=== PATIENT | male | born 1975 | race Caucasian/White ===

== ENCOUNTER 2020-04-21 21:43 | Emergency (ER) | payer OTHER, SELFPAY ==
[2020-04-21 21:47] VITALS: BP 136/95; PULSE 96; RESP 32; TEMP 36.4; O2SAT 92; BMI 22.2
--- NOTE | 2020-04-21 21:56 | ED.SOB ---
HPI - SOB/Dyspnea General Chief Complaint: Dyspnea Stated Complaint: ASTHMA ATTACK Time Seen by Provider: 04/21/20 21:55 Source: patient and EMS Mode of arrival: EMS Limitations: no limitations History of Present Illness HPI Narrative: patient history of COPD/asthma chronic smoker been here frequently for COPD exacerbation and admission last admission was 3 months ago. For last 3-4 days patient has been feeling short of breath getting worse using nebulizer multiple times without much relief patient received 2 DuoNeb treatment by EMS Solu-Medrol and magnesium now is feeling better still wheezing and tightNo exposure to COVID lately MD elicited complaint: shortness of breath and cough ( dry) Pertinent past history: COPD and asthma Onset (ago): day(s) (3-4) Related Data Home Medications Medication Instructions Recorded Confirmed albuterol sulfate 1 amp INHALATION Q4H PRN 04/21/20 04/21/20 albuterol sulfate 2 puff PO Q4H PRN 04/21/20 04/21/20 Allergies Allergy/AdvReac Type Severity Reaction Status Date / Time No Known Allergies Allergy Verified 04/21/20 22:15 [No Known Allergies*] Review of Systems Review of Systems: REVIEW OF SYSTEMS: Pertinent positives and negatives are stated above in the history. GEN: no fevers, chills, fatigue HEENT: no nasal congestion, sore throat, ear pain NEURO: no headache, dizziness, focal weakness PULM: per HPI CV: no chest pain, palpitations, LE edema ABD: no abdominal pain, nausea, vomiting, diarrhea : no dysuria, urgency, frequency SKIN: no rash ROS otherwise negative x 10 PMFSH Past Medical History Medical History Asthma COPD (chronic obstructive pulmonary disease) Social History Social History Alcohol intake: never Smoking Status: Current every day smoker Advance Directives: No Advance Directives Information Provided: Yes Physical Exam Vital Signs: Vital Signs: Vital Signs Temp Pulse Resp BP Pulse Ox 04/21/20 21:47 97.6 F 96 32 H 136/95 H 92 Body Mass Index 22.2 VITAL SIGNS: Reviewed. GENERAL: Well developed, well nourished, in moderate distress. HEAD: Normocephalic/atraumatic, EYES: PERRLA No pallor/icterus noted EARS: Ext canals without abnormality NOSE: Nares patent bilateral OROPHARYNX: Oral mucosa moist no oral lesions NECK: Supple, no adenopathy LUNGS: moderate distress wheezing prolonged expiration no rales using accessory muscle CARDIOVASCULAR: Regular rate and rhythm without noted murmurs, no JVD or lower extremity edema. ABDOMEN: Soft, non-tender, non-distended with bowel sounds. No rigidity. No guarding. No palpable masses or hernias noted MUSCULOSKELETAL: No tenderness, deformities, EXTREMITIES: No cyanosis or edema. SKIN: no rashes, ulcerations, jaundice, pallor, or petechiae NEUROLOGIC: Alert and oriented x 3. Strength and sensation to light touch were grossly intact Course Reevaluation(s) Reevaluation #1: Patient feeling much better now does not want to stay in the hospital has nebulizer and haler at home saturating 92% after ambulation received nebulizing treatment in the ER and already received Solu-Medrol magnesium and DuoNeb treatment by EMS will give him extra 10 mg of Decadron IV here and discharge him home Time: 01:11 MDM - SOB/Dyspnea Lab Data Result diagrams: 04/21/20 23:27 04/21/20 23:27 Labs: Lab Results 04/21/20 04/21/20 04/21/20 Range/Units 22:33 23:27 23:27 WBC 8.8 (4.8-10.8) X10*3/uL RBC 4.30 L (4.60-5.80) X10*6/uL Hgb 12.9 L (14.0-18.0) g/dl Hct 39.4 L (42-52) % MCV 91.6 (80-98) fL MCH 30.0 (27.0-33.0) pg MCHC 32.7 (31.0-36.0) g/dl RDW 13.2 (11.0-16.0) % Plt Count 207 (160-400) X10*3/uL MPV 10.2 (9.4-12.4) fL Immature Gran % (Auto) 0.2 (0.0-0.4) % Neut % (Auto) 84.4 H (45-73) % Lymph % (Auto) 9.2 L (20-40) % [place] % (Auto) 2.7 (2-11) % Eos % (Auto) 3.2 (0-4) % Baso % (Auto) 0.3 (0-2) % Lymph # (Auto) 0.8 L (1.2-4.9) X10*3/uL [place] # (Auto) 0.2 (0.1-1.2) X10*3/uL Eos # (Auto) 0.3 (0.0-0.4) X10*3/uL Baso # (Auto) 0.0 (0.0-0.2) X10*3/uL Abs Immat Gran (auto) 0.02 (0.00-0.03) X10*3/uL Absolute Neuts (auto) 7.4 (2.0-8.3) X10*3/uL Absolute Nucleated RBC 0.000 (0.0-0.012) X10*3/uL Nucleated RBC % (auto) 0.0 (0.0-0.2) /100WBC Sodium 140 (135-145) mmol/L Potassium 3.7 (3.3-5.1) mmol/l Chloride 106 (96-108) mmol/L Carbon Dioxide 25 (22-29) mmol/L Anion Gap 13 (12-20) BUN 20 H (9-16) mg/dL Creatinine 0.85 (0.5-1.4) mg/dL Estim Creat Clear Calc 107.9 Estimated GFR > 60 Random Glucose 131 H (60-115) mg/dL Calcium 7.8 L (8.4-10.2) mg/dL Coronavirus (PCR) NEGATIVE (Negative) Discharge Plan Discharge Prescriptions: No Action albuterol sulfate 2.5 mg /3 mL (0.083 %) solution for nebulization 1 amp inhalation Q4H PRN (Reason: wheezing) RF: 0 albuterol sulfate 90 mcg/actuation HFA aerosol inhaler 2 puff PO Q4H PRN (Reason: dyspnea) RF: 0
--- NOTE | 2020-04-21 22:05 | XR_ITS ---
EXAMINATION: XR CHEST CLINICAL INFORMATION: Shortness of breath COMPARISON: 10/04/2019 TECHNIQUE: Frontal view of the chest was obtained. FINDINGS: The heart and pulmonary vessels appear normal. There is no evidence of CHF. Compared to the prior chest radiograph, there is an increase in reticulonodular markings which could be related to mucus plugging which was seen on the prior CT scan. No gross consolidation is seen. No pleural effusions are present. XR/XR chest 1V IMPRESSION: Slight increase in reticular nodular densities without gross consolidation.
[2020-04-21] MEDS: 0.9 % Sodium Chloride 1,000 ML 999 ML IVCONT (22:12)
--- NOTE | 2020-04-21 22:14 | PC.NURSE ---
2L O2 APPLIED VIA NC. PT SPO2 INCREASED TO 97% ON 2L. SPRING FORGER APPLIED, SINUS TACH ON MONITOR. IVF HUNG AND INFUSING WITHOUT DIFFICULTY. AWAITING TESTING, AWARE OF PLAN OF CARE.
--- NOTE | 2020-04-21 22:19 | PC.NURSE ---
MEDICATIONS RECONCILED- PT STATES HE HASNT TAKEN HIS PSYCH MEDS IN MONTHS. NOT ADDED TO MED REC BECAUSE OF LENGTH OF TIME NOT TAKING.
--- NOTE | 2020-04-21 22:32 | PC.NURSE ---
CALLED RT FOR CONTINUOUS UPDRAFT- PER YOLY Campos UNABLE TO ADMINISTER UNTIL NEGATIVE COVID RECEIVED. NOTIFIED.
[2020-04-21 23:36] LABS: Basophils Percent Auto 0.3 % (0-2); Eosinophils Absolute Auto 0.3 X10*3/uL (0.0-0.4); Eosinophils Percent Auto 3.2 % (0-4); Hematocrit 39.4 % (42-52); Hemoglobin 12.9 g/dl (14.0-18.0); Imm Gran Abs Auto 0.02 X10*3/uL (0.00-0.03); Imm Gran Pct Auto 0.2 % (0.0-0.4); Lymphocytes Absolute Auto 0.8 X10*3/uL (1.2-4.9); Lymphocytes Percent Auto 9.2 % (20-40); MANUAL DIFF FLAG NO; Mean Corpuscular HGB Conc 32.7 g/dl (31.0-36.0); Mean Corpuscular Volume 91.6 fL (80-98); Mean Platelet Volume 10.2 fL (9.4-12.4); Monocytes Absolute Auto 0.2 X10*3/uL (0.1-1.2); Monocytes Percent Auto 2.7 % (2-11); Neutrophils Absolute Auto 7.4 X10*3/uL (2.0-8.3); Neutrophils Percent Auto 84.4 % (45-73); Platelet Count 207 X10*3/uL (160-400); Red Cell Distribution Width 13.2 % (11.0-16.0); White Blood Count 8.8 X10*3/uL (4.8-10.8)
[2020-04-21 23:51] LABS: SARS COV2 PCR INHOUSE NEGATIVE (Negative)
[2020-04-22] VITALS: BP 93/67; PULSE 100; RESP 20; TEMP 36.8; O2SAT 93
[2020-04-22 00:08] LABS: Anion Gap 13 (12-20); Blood Urea Nitrogen 20 mg/dL (9-16); Calcium 7.8 mg/dL (8.4-10.2); Carbon Dioxide 25 mmol/L (22-29); Chloride 106 mmol/L (96-108); Creatinine Clr Calc Pharmacy 107.9; Estimated Glomerular Filt Rate > 60; Glucose Random 131 mg/dL (60-115); Potassium 3.7 mmol/l (3.3-5.1); Sodium 140 mmol/L (135-145)
[2020-04-22] MEDS: Albuterol Sulfate (0.083%) 2.5 MG/3 ML VIAL.NEB 10 MG INHALE (00:09)
--- NOTE | 2020-04-22 01:13 | PC.NURSE ---
AMBULATION TRIAL TO BATHROOM, SPO2 92% ON RA AFTERWARDS, PT REPORTS FEELING MUCH BETTER. REEVAL BY MD SALTER. AWAITING MED AND DC HOME. AWARE AND IN AGREEANCE WITH PLAN OF CARE.
[2020-04-22] MEDS: dexAMETHasone sod phosphate 4 MG/ML VIAL 10 MG IVPUSH (01:16)
== END 2020-04-22 01:40 | disposition home or self-care (01) ==
PROVIDERS: Emergency Provider Internal Medicine
DX: J44.9 Chronic obstructive pulmonary disease, unspecified (principal); Z20.828 Contact with and (suspected) exposure to other viral communicable diseases; Z79.899 Other long term (current) drug therapy
CPT/HCPCS: 36415; 71045; 80048; 85025; 96361; 96374; 99284; J1100; U0003

== ENCOUNTER 2020-06-10 22:05 | Inpatient (IN) | payer OTHER, SELFPAY ==
[2020-06-10 22:17] VITALS: BP 130/101; PULSE 106; RESP 24; TEMP 36.1; O2SAT 88; BMI 20.9
[2020-06-10 22:21] VITALS: O2SAT 94
--- NOTE | 2020-06-10 22:23 | XR_ITS ---
EXAMINATION: CHEST 1 VIEW CLINICAL INFORMATION: Shortness of breath. COMPARISON: 04/21/2020. TECHNIQUE: An AP view of the chest is provided. FINDINGS: The cardiac silhouette is not enlarged. The mediastinal and hilar contours are unremarkable. There are neither pleural effusions nor pneumothoraces. There are no consolidations. The osseous structures are stable. XR/XR chest 1V IMPRESSION: No evidence for acute disease.
--- NOTE | 2020-06-10 22:23 | ECG_ITS ---
Test Reason : SOB Blood Pressure : / mmHG Vent. Rate : 093 BPM Atrial Rate : 093 BPM P-R Int : 158 ms QRS Dur : 078 ms QT Int : 392 ms P-R-T Axes : 068 051 072 degrees QTc Int : 487 ms Normal sinus rhythm Prolonged QT Abnormal ECG When compared to the previous EKG of No significant changes seen Referred By: Generic ED Physician Electronically Signed By:Richard Vásquez
--- NOTE | 2020-06-10 22:29 | PC.NURSE ---
IV established, labs and Covid swab obtained and sent.
[2020-06-10] MEDS: Magnesium Sulfate/H2O 2 GM/50 ML PIGGYBACK IV (22:33)
--- NOTE | 2020-06-10 22:33 | ED_ITS ---
HPI - SOB/Dyspnea General Chief Complaint: Dyspnea Stated Complaint: sob Time Seen by Provider: 06/10/20 22:28 Source: patient Mode of arrival: ambulatory Limitations: no limitations History of Present Illness HPI Narrative: 44-year-old male presents with past medical history of asthma, and substance abuse presents with shortness of breath, cough, in a tripod position and hypoxic at 88% with a respiration rate of 24. Patient cannot speak in complete sentences, respiratory called. Patient states that he does use cocaine but not in the past 2 days, has used his albuterol inhalers with poor effect. He does not report any sick contacts and has not had any exposure to COVID-19. MD elicited complaint: shortness of breath, cough and asthma attack Pertinent past history: asthma Onset (ago): day(s) (3) Timing: constant Severity: severe Exacerbating factors: exertion, movement, coughing, inspiration, talking, cold air and deep breaths Relieving factors: nothing Known history of: asthma Associated symptoms: wheezing, sputum production, orthopnea and diaphoresis Treatment prior to arrival: bronchodilator Related Data Home oxygen amount: none Home Medications Medication Instructions Recorded Confirmed albuterol sulfate 1 amp INHALATION Q4H PRN 04/21/20 04/21/20 albuterol sulfate 2 puff PO Q4H PRN 04/21/20 04/21/20 Previous Rx's Medication Instructions Recorded albuterol sulfate 2 puff INHALATION Q6H PRN #18 g 04/22/20 albuterol sulfate 2.5 mg INHALATION Q4-6H PRN #180 ml 04/22/20 benzonatate [Tessalon Perles] 100 mg PO TID PRN #20 cap 04/22/20 prednisone 40 mg PO DAILY #10 tab 04/22/20 Allergies Allergy/AdvReac Type Severity Reaction Status Date / Time No Known Allergies Allergy Verified 04/21/20 22:15 [No Known Allergies*] Review of Systems Review of Systems: Constitutional: No Fever, No Chills ENT/Mouth: No Hoarseness, No sore throat, No Rhinorrhea Eyes: No Redness, No Discharge, No Vision Changes Cardiovascular: No Chest Pain, positive SOB, positive Dyspnea on Exertion, No Edema Respiratory: positive Cough, No Sputum, positive Wheezing, Gastrointestinal: No Nausea, No Vomiting, No Diarrhea, No abdominal Pain Genitourinary: No Dysuria, No Hematuria Musculoskeletal: No joint pain, No Myalgias Skin: No rash Neuro: No Weakness, No Numbness, No Headache Psych: No anxiety, depression Heme/Lymph: No Bruising, No Bleeding Endocrine: No Polyuria, No Polydipsia Yes all other systems are reviewed and are negative COUNT INCLUDES THE [facility] Past Medical History Attestation statement: The following information was validated with the patient. Medical History Asthma COPD (chronic obstructive pulmonary disease) Social History Social History Alcohol intake: never Smoking Status: Current every day smoker Advance Directives: No Advance Directives Information Provided: Yes Physical Exam 2 Vital Signs: Vital Signs: Last Vital Signs Temp 97 F 06/10/20 22:17 Pulse 98 06/10/20 23:38 Resp 18 06/10/20 23:38 BP 124/80 06/10/20 23:38 Pulse Ox 94 06/10/20 23:38 Body Mass Index 20.9 Appearance: Alert. Oriented X3. Moderate respiratory distress, tachypneic, tachycardic Eyes: Pupils equal, round and reactive to light. ENT: Pharynx normal. Neck: Normal inspection. Neck supple. CVS: Tachycardic heart rate and rhythm. Pulses normal. Respiratory: Moderate respiratory distress. Breath sounds inspiratory and expiratory wheezing with diminished air flow Abdomen: Soft and nontender. Skin: Skin warm and mild diaphoresis, Normal skin color. Normal skin turgor. Extremities: No lower extremity edema. Neuro: No motor deficit. No sensory deficit. Course Course Course Narrative: 44-year-old male with known asthma presents with acute asthma exacerbation versus acute respiratory distress. Respiratory called, hour long neb, magnesium 2 g, Decadron 6 mg and oxygen applied titrated to keep O2 sat above 92%. Patient requires 3 L, chest x-ray shows mucus plug, COVID-19 test is negative. Discussion with hospitalist regarding plan of care, plan to admit for hypoxia, acute asthma exacerbation. MDM - SOB/Dyspnea Differential Diagnosis Differential diagnosis: Likely acute exacerbation of chronic obstructive airways disease, pneumonia and asthma with exacerbation Medical Records Attestation: I reviewed the patient's medical records. Lab Data Attestation: I reviewed the patient's lab results. Result diagrams: 06/10/20 22:25 06/10/20 22:25 Labs: Lab Results 06/10/20 06/10/20 06/10/20 Range/Units 22:25 22:25 22:29 WBC 5.7 (4.8-10.8) X10*3/uL RBC 4.72 (4.60-5.80) X10*6/uL Hgb 14.2 (14.0-18.0) g/dl Hct 42.6 (42-52) % MCV 90.3 (80-98) fL MCH 30.1 (27.0-33.0) pg MCHC 33.3 (31.0-36.0) g/dl RDW 13.0 (11.0-16.0) % Plt Count 272 D (160-400) X10*3/uL MPV 10.0 (9.4-12.4) fL Immature Gran % (Auto) 0.2 (0.0-0.4) % Neut % (Auto) 44.1 L (45-73) % Lymph % (Auto) 37.7 (20-40) % [place] % (Auto) 8.5 (2-11) % Eos % (Auto) 8.8 H (0-4) % Baso % (Auto) 0.7 (0-2) % Lymph # (Auto) 2.1 (1.2-4.9) X10*3/uL [place] # (Auto) 0.5 (0.1-1.2) X10*3/uL Eos # (Auto) 0.5 H (0.0-0.4) X10*3/uL Baso # (Auto) 0.0 (0.0-0.2) X10*3/uL Abs Immat Gran (auto) 0.01 (0.00-0.03) X10*3/uL Absolute Neuts (auto) 2.5 (2.0-8.3) X10*3/uL Absolute Nucleated RBC 0.000 (0.0-0.012) X10*3/uL Nucleated RBC % (auto) 0.0 (0.0-0.2) /100WBC Sodium 142 (135-145) mmol/L Potassium 4.4 (3.3-5.1) mmol/l Chloride 104 (96-108) mmol/L Carbon Dioxide 27 (22-29) mmol/L Anion Gap 15 (12-20) BUN 16 (9-16) mg/dL Creatinine 0.94 (0.5-1.4) mg/dL Estim Creat Clear Calc 94.4 Estimated GFR > 60 Random Glucose 93 (60-115) mg/dL Calcium 9.1 D (8.4-10.2) mg/dL COVID-19 ([facility]) Negative (Negative) COVID-19 Clin Com See Note Imaging Data Chest x-ray: Attestation: I personally reviewed and interpreted this imaging study as follows: Radiologist's impression: EXAMINATION: XR CHEST CLINICAL INFORMATION: Shortness of breath COMPARISON: 10/04/2019 TECHNIQUE: Frontal view of the chest was obtained. FINDINGS: The heart and pulmonary vessels appear normal. There is no evidence of CHF. Compared to the prior chest radiograph, there is an increase in reticulonodular markings which could be related to mucus plugging which was seen on the prior CT scan. No gross consolidation is seen. No pleural effusions are present. XR/XR chest 1V IMPRESSION: Slight increase in reticular nodular densities without gross consolidation. ECG Data Attestation: I personally reviewed and interpreted this ECG as follows: ECG interpretation date: 06/10/20 Discharge Plan Discharge Clinical Impression: Asthma with exacerbation Patient Disposition: Admitted As Inpatient Prescriptions: No Action albuterol sulfate 2.5 mg /3 mL (0.083 %) solution for nebulization 1 amp inhalation Q4H PRN (Reason: wheezing) RF: 0 albuterol sulfate 90 mcg/actuation HFA aerosol inhaler 2 puff PO Q4H PRN (Reason: dyspnea) RF: 0 albuterol sulfate 90 mcg/actuation HFA aerosol inhaler 2 puff inhalation Q6H PRN (Reason: shortness of breath or wheezing) Qty: 18 RF: 2 albuterol sulfate 2.5 mg /3 mL (0.083 %) solution for nebulization 2.5 mg inhalation Q4-6H PRN (Reason: shortness of breath or wheezing) Qty: 180 RF: 0 benzonatate [Tessalon Perles] 100 mg capsule 100 mg PO TID PRN (Reason: cough) Qty: 20 RF: 0 prednisone 20 mg tablet 40 mg PO DAILY Qty: 10 RF: 0
[2020-06-10] MEDS: dexAMETHasone sod phosphate 4 MG/ML VIAL 6 MG IVPUSH (22:34)
--- NOTE | 2020-06-10 22:35 | PC.NURSE ---
Pt medicated per MAR.
[2020-06-10 22:36] LABS: MANUAL DIFF FLAG NO
[2020-06-10] MEDS: Albuterol Sulfate (0.083%) 2.5 MG/3 ML VIAL.NEB 10 MG INHALE (22:41)
[2020-06-10 22:42] VITALS: PULSE 102; O2SAT 95
[2020-06-10 22:42] LABS: Basophils Percent Auto 0.7 % (0-2); Eosinophils Absolute Auto 0.5 X10*3/uL (0.0-0.4); Eosinophils Percent Auto 8.8 % (0-4); Hematocrit 42.6 % (42-52); Hemoglobin 14.2 g/dl (14.0-18.0); Imm Gran Abs Auto 0.01 X10*3/uL (0.00-0.03); Imm Gran Pct Auto 0.2 % (0.0-0.4); Lymphocytes Absolute Auto 2.1 X10*3/uL (1.2-4.9); Lymphocytes Percent Auto 37.7 % (20-40); Mean Corpuscular HGB Conc 33.3 g/dl (31.0-36.0); Mean Corpuscular Hemoglobin 30.1 pg (27.0-33.0); Mean Corpuscular Volume 90.3 fL (80-98); Monocytes Absolute Auto 0.5 X10*3/uL (0.1-1.2); Monocytes Percent Auto 8.5 % (2-11); Neutrophils Absolute Auto 2.5 X10*3/uL (2.0-8.3); Neutrophils Percent Auto 44.1 % (45-73); Platelet Count 272 X10*3/uL (160-400); Red Blood Count 4.72 X10*6/uL (4.60-5.80); White Blood Count 5.7 X10*3/uL (4.8-10.8)
[2020-06-10 22:44] LABS: IDNOW Serial# 9DD0AD1C
[2020-06-10 22:52] LABS: COVID-19 Test Negative (Negative)
[2020-06-10 23:11] LABS: Anion Gap 15 (12-20); Blood Urea Nitrogen 16 mg/dL (9-16); Calcium 9.1 mg/dL (8.4-10.2); Carbon Dioxide 27 mmol/L (22-29); Chloride 104 mmol/L (96-108); Creatinine Clr Calc Pharmacy 94.4; Estimated Glomerular Filt Rate > 60; Glucose Random 93 mg/dL (60-115); Potassium 4.4 mmol/l (3.3-5.1); Sodium 142 mmol/L (135-145)
--- NOTE | 2020-06-10 23:36 | PC.NURSE ---
Pt found sitting in bed, with UPD noted on bed, empty. Pts NC no longer attached to oxygen as UPD had been running, pt satting @ 88% on RA. O2 reapplied at 3 lpm via NC, sat increased to 93%. VSS. Pt requesting cough medicine at this time. Continue to monitor.
[2020-06-10 23:38] VITALS: BP 124/80; PULSE 98; RESP 18; O2SAT 88; O2SAT 94
--- NOTE | 2020-06-10 23:53 | PC.NURSE ---
CXR at bedside.
[2020-06-11] VITALS: BP 121/85; PULSE 95; RESP 18; O2SAT 94
--- NOTE | 2020-06-11 00:37 | PC.NURSE ---
EKG obtained at bedside.
[2020-06-11 02:00] VITALS: BP 120/78; PULSE 94; RESP 18; O2SAT 95
--- NOTE | 2020-06-11 02:24 | P.HPHOSP_ITS ---
History of Present Illness Date of Service: 06/11/20 Chief Complaint: SOB 44 y/o male with PMHx of Psychotic disorder, Asthma/COPD and insomnia who presented from home due to SOB. Per history provided by the patient, for the past 1 day has been having worsening difficulty breathing associated with a dry cough but denies any fever, chills, nausea, vomiting or chest pain. On prentation to the ED patient was saturating 88% on room air, labs unremarkable as well as imaging. Patient was given Albuterol, dexamethason and magnesium. Decision for admission given to medicine. Patient seen and examined at the bedside, laying downi in bed in no acute distress. ROS as above otherwise negative. Past medical history: Schizoaffective, Asthma/COPD, opiate use disorder Surgical history: Denies Family history: Father had multiple heart attacks Social history: Comes from home, reports that he quit smoking and drinking alcohol about 2 weeks ago, he had no draw symptoms. Uses heroin daily last use this morning. Review of Systems Constitutional: Constitutional: Reports as per HPI and Reports other [facility] Medical History Asthma COPD (chronic obstructive pulmonary disease) Functional capacity: independent ambulation Social History Alcohol intake: never Smoking Status: Current every day smoker Advance Directives: No Advance Directives Information Provided: Yes Meds Allergies Allergy/AdvReac Type Severity Reaction Status Date / Time No Known Allergies Allergy Verified 04/21/20 22:15 [No Known Allergies*] Home Medications Medication Instructions Recorded Confirmed Type albuterol sulfate 1 amp INHALATION Q4-6H PRN 06/11/20 06/11/20 History albuterol sulfate 2 puff PO Q6H PRN 06/11/20 06/11/20 History clonidine HCl 1 tab PO TID PRN 06/11/20 06/11/20 History risperidone 1 tab PO BID 06/11/20 06/11/20 History trazodone 1 tab PO BEDTIME 06/11/20 06/11/20 History Physical Exam Vital Signs and Narrative: Vital Signs: Last Vital Signs Temp 97 F 06/10/20 22:17 Pulse 94 06/11/20 02:00 Resp 18 06/11/20 02:00 BP 120/78 06/11/20 02:00 Pulse Ox 95 06/11/20 02:00 Body Mass Index 20.9 Const: General: cooperative, comfortable and no acute distress Orientation/consciousness: oriented to person, oriented to place and oriented to time HENMT: Head: Yes normal to inspection Eyes: General: appearance normal, both eyes and all related structures Neck: Yes normal visual inspection Chest: Chest palpation & inspection: normal inspection of the chest Resp: Auscultation: clear to auscultation bilaterally Cardio: Rate: regular rate Rhythm: regular rhythm Heart sounds: S1 normal heart sound present and S2 normal heart sound present GI: Inspection: Yes normal to inspection Percussion: Yes normal to percussion Skin: General skin exam: no rashes or lesions noted Neuro: General: oriented to person, oriented to place and oriented to time Results Labs CBC and Chem 7: 06/10/20 22:25 06/10/20 22:25 Labs: Laboratory Results - last 24 hr 06/10/20 06/10/20 06/10/20 22:25 22:25 22:29 MCV 90.3 MCH 30.1 MCHC 33.3 RDW 13.0 Plt Count 272 D MPV 10.0 Immature Gran % (Auto) 0.2 Neut % (Auto) 44.1 L Lymph % (Auto) 37.7 [place] % (Auto) 8.5 Eos % (Auto) 8.8 H Baso % (Auto) 0.7 Lymph # (Auto) 2.1 [place] # (Auto) 0.5 Eos # (Auto) 0.5 H Baso # (Auto) 0.0 Abs Immat Gran (auto) 0.01 Absolute Neuts (auto) 2.5 Absolute Nucleated RBC 0.000 Nucleated RBC % (auto) 0.0 Anion Gap 15 Estim Creat Clear Calc 94.4 Estimated GFR > 60 Random Glucose 93 Calcium 9.1 D COVID-19 ([facility]) Negative COVID-19 Clin Com See Note Imaging Radiologist's Impressions: Impressions Chest X-Ray 06/10/20 22:23 IMPRESSION: No evidence for acute disease. Assessment and Plan (1) Asthma with exacerbation: Qualifiers: Asthma persistence: persistent Asthma severity: severe Qualified Code(s): J45.51 - Severe persistent asthma with (acute) exacerbation Status: Acute Continue with O2 therapy and titrate down as tolerated Continue with IV solumedrol as ordered Follow up Bcx Incentive spirometry in the am (2) Psychotic disorder: Status: Acute continue with home psych meds (3) Insomnia: Status: Acute continue with trazodone home dose
--- NOTE | 2020-06-11 02:42 | PC.NURSE ---
PT'S WORK OF BREATHING HAS IMPROVED, NOW ABLE TO SPEAK IN FULL SENTENCES. SPO2 MID 90'S, PT NO LONGER TRIPOD POSITION LIKE WHEN HE ARRIVED TO THE ER. PT SEEMS ANXIOUS, ASKED IF HE IS CURRENTLY USING OPIATES OR WITHDRAWING. PT REPLIED NO, I HAVEN'T USED IN A WHILE.
--- NOTE | 2020-06-11 02:46 | PC.NURSE ---
REPORT GIVEN TO RN ON FLOOR, PT READY FOR TRANSPORT.
[2020-06-11 03:15] VITALS: BP 107/73; PULSE 93; RESP 18; TEMP 36.7; O2SAT 96
[2020-06-11] MEDS: guaiFENesin 100 MG/5 ML LIQUID PO (04:51)
[2020-06-11] MEDS: Heparin Sodium,Porcine 5,000 UNIT/ML VIAL 5000 UNIT SUBCUT (04:51)
[2020-06-11 04:55] LABS: Basophils Percent Auto 0.3 % (0-2); Eosinophils Percent Auto 0.3 % (0-4); Hematocrit 39.3 % (42-52); Imm Gran Abs Auto 0.01 X10*3/uL (0.00-0.03); Imm Gran Pct Auto 0.1 % (0.0-0.4); Lymphocytes Absolute Auto 0.4 X10*3/uL (1.2-4.9); Lymphocytes Percent Auto 6.2 % (20-40); Mean Corpuscular HGB Conc 33.1 g/dl (31.0-36.0); Mean Corpuscular Hemoglobin 29.7 pg (27.0-33.0); Mean Corpuscular Volume 89.9 fL (80-98); Mean Platelet Volume 10.1 fL (9.4-12.4); Monocytes Absolute Auto 0.1 X10*3/uL (0.1-1.2); Monocytes Percent Auto 0.9 % (2-11); Neutrophils Absolute Auto 6.2 X10*3/uL (2.0-8.3); Neutrophils Percent Auto 92.2 % (45-73); Platelet Count 249 X10*3/uL (160-400); Red Blood Count 4.37 X10*6/uL (4.60-5.80); Red Cell Distribution Width 12.9 % (11.0-16.0); SCAN SMEAR FLAG 1; White Blood Count 6.8 X10*3/uL (4.8-10.8)
[2020-06-11 04:56] LABS: MANUAL DIFF FLAG NO
[2020-06-11 05:31] LABS: Anion Gap 15 (12-20); Blood Urea Nitrogen 13 mg/dL (9-16); Calcium 9.1 mg/dL (8.4-10.2); Carbon Dioxide 24 mmol/L (22-29); Chloride 105 mmol/L (96-108); Creatinine Clr Calc Pharmacy 95.5; Estimated Glomerular Filt Rate > 60; Glucose Random 164 mg/dL (60-115); Potassium 4.1 mmol/l (3.3-5.1); Sodium 140 mmol/L (135-145)
[2020-06-11 07:35] VITALS: BP 136/70; PULSE 89; RESP 20; TEMP 36.5; O2SAT 94
[2020-06-11 08:27] VITALS: BP 136/70; PULSE 89
[2020-06-11] MEDS: 0.9 % Sodium Chloride Flush 3 ML SYRINGE IVFLUSH (08:27)
[2020-06-11] MEDS: risperiDONE 1 MG TABLET PO (08:27)
[2020-06-11] MEDS: cloNIDine HCL 0.1 MG TABLET PO (08:27)
--- NOTE | 2020-06-11 08:54 | MHC.CM.PN ---
Addendum entered by Sinai Bhat 06/11/20 09:37: CHANGE OF DISCHARGE PLAN - PATIENT IS LEAVING AMA. Original Note: PATIENT IS DISCHARGED HOME WITH NO NEED FOR SERVICES. RN AWARE OF PLAN. PATIENT IS ABLE TO SECURE HIS TRANSPORTATION.
--- NOTE | 2020-06-11 09:15 | PM.DS ---
DS: Providers Provider Date of admission: 06/11/20 02:19 Primary care physician: Unknown Physician DS: Diagnosis Discharge Diagnosis (1) Acute respiratory failure with hypoxia: Status: Acute (2) Asthma with exacerbation: Status: Acute (3) Insomnia: Status: Acute DS: Medications Discharge Medications Home Medications: Home Medications Medication Instructions Recorded Confirmed albuterol sulfate 1 amp INHALATION Q4-6H PRN 06/11/20 06/11/20 clonidine HCl 1 tab PO TID PRN 06/11/20 06/11/20 risperidone 1 tab PO BID 06/11/20 06/11/20 trazodone 1 tab PO BEDTIME 06/11/20 06/11/20 Previous Rx's Medication Instructions Recorded albuterol sulfate 2 puff PO Q6H PRN #1 g 06/11/20 prednisone 50 mg PO DAILY #5 tab 06/11/20 DS: Summary Hospital Course Hospital Course: Patient presented to the hospital with signs of impending respiratory failure. He was noted to be hypoxic at 88 on room air and in tripod positioning in the emergency room. He was treated with bronchodilators, supplemental oxygen and systemic steroids. He was quick to improve and on the morning after admission, felt that he was ready for discharge. However he was advised to stay in the hospital for an additional 24 hours of inpatient treatment which she refused and signed out against medical advice. He will be prescribed albuterol inhaler as well as prednisone for 5 days. He has been encouraged to return to the emergency room should he changes mind. He was explained thoroughly the risks of leaving against medical advice which include but are not limited to respiratory failure and ultimately . He is able to recite these facts back to me. Nonetheless, he decided to sign out against medical advice. Time Spent with Patient Time attestation: Total time spent providing and/or coordinating discharge services: Physical Exam Vital Signs: Vital Signs: Last Vital Signs Temp 97.7 F 06/11/20 07:35 Pulse 89 06/11/20 08:27 Resp 20 06/11/20 07:35 BP 136/70 06/11/20 08:27 Pulse Ox 94 06/11/20 07:35 Body Mass Index 20.9 Const: Other: General - no acute distress, appears comfortable Cardiovascular - regular rate and rhythm, S1-S2 Lungs -no wheezing, not hypoxic saturations 94 on room air Abdomen - soft, nontender, no rebound or guarding Extremities - no edema bilaterally Neuro - awake and alert, no focal deficits DS: Data Data Completed and Pending Labs on day of discharge: Laboratory Last Values WBC 6.8 X10*3/uL (4.8-10.8) 06/11/20 04:47 RBC 4.37 X10*6/uL (4.60-5.80) L 06/11/20 04:47 Hgb 13.0 g/dl (14.0-18.0) L 06/11/20 04:47 Hct 39.3 % (42-52) L 06/11/20 04:47 MCV 89.9 fL (80-98) 06/11/20 04:47 MCH 29.7 pg (27.0-33.0) 06/11/20 04:47 MCHC 33.1 g/dl (31.0-36.0) 06/11/20 04:47 RDW 12.9 % (11.0-16.0) 06/11/20 04:47 Plt Count 249 X10*3/uL (160-400) 06/11/20 04:47 MPV 10.1 fL (9.4-12.4) 06/11/20 04:47 Immature Gran % (Auto) 0.1 % (0.0-0.4) 06/11/20 04:47 Neut % (Auto) 92.2 % (45-73) H 06/11/20 04:47 Lymph % (Auto) 6.2 % (20-40) L 06/11/20 04:47 [place] % (Auto) 0.9 % (2-11) L 06/11/20 04:47 Eos % (Auto) 0.3 % (0-4) 06/11/20 04:47 Baso % (Auto) 0.3 % (0-2) 06/11/20 04:47 Lymph # (Auto) 0.4 X10*3/uL (1.2-4.9) L 06/11/20 04:47 [place] # (Auto) 0.1 X10*3/uL (0.1-1.2) 06/11/20 04:47 Eos # (Auto) 0.0 X10*3/uL (0.0-0.4) 06/11/20 04:47 Baso # (Auto) 0.0 X10*3/uL (0.0-0.2) 06/11/20 04:47 Abs Immat Gran (auto) 0.01 X10*3/uL (0.00-0.03) 06/11/20 04:47 Absolute Neuts (auto) 6.2 X10*3/uL (2.0-8.3) 06/11/20 04:47 Absolute Nucleated RBC 0.000 X10*3/uL (0.0-0.012) 06/11/20 04:47 Nucleated RBC % (auto) 0.0 /100WBC (0.0-0.2) 06/11/20 04:47 Hold Blue Top SEE NOTE 06/11/20 04:47 Sodium 140 mmol/L (135-145) 06/11/20 04:47 Potassium 4.1 mmol/l (3.3-5.1) 06/11/20 04:47 Chloride 105 mmol/L (96-108) 06/11/20 04:47 Carbon Dioxide 24 mmol/L (22-29) 06/11/20 04:47 Anion Gap 15 (-20) 06/11/20 04:47 BUN 13 mg/dL (9-16) 06/11/20 04:47 Creatinine 0.93 mg/dL (0.5-1.4) 06/11/20 04:47 Estim Creat Clear Calc 95.5 06/11/20 04:47 Estimated GFR > 60 06/11/20 04:47 Random Glucose 164 mg/dL (60-115) H D 06/11/20 04:47 Calcium 9.1 mg/dL (8.4-10.2) 06/11/20 04:47 COVID-19 ([facility]) Negative (Negative) 06/10/20 22:29 COVID-19 Clin Com See Note 06/10/20 22:29 Discharge Plan Discharge Patient Disposition: Left Against Medical Advice Referrals: Physician,Unknown [Primary Care Provider] - Discharge Medications: New prednisone 50 mg tablet 50 mg PO DAILY Qty: 5 RF: 0 Continued albuterol sulfate 2.5 mg /3 mL (0.083 %) solution for nebulization 1 amp inhalation Q4-6H PRN (Reason: wheezing) RF: 0 trazodone 100 mg tablet 1 tab PO BEDTIME RF: 0 risperidone 1 mg tablet 1 tab PO BID RF: 0 albuterol sulfate 90 mcg/actuation HFA aerosol inhaler 2 puff PO Q6H PRN (Reason: wheezing) Qty: 1 RF: 0 clonidine HCl 0.1 mg tablet 1 tab PO TID PRN (Reason: Anxiety) Qty: 30 RF: 0 Discharge Orders: Discharge Order (Routine); Ordered 06/11/20 Ordered By: Az García Discharge Date/Time: 06/11/20 09:30 Care Plan Goals: AMA Health Concerns: Asthma / Respiratory Failure Plan of Treatment: You are leaving AMA, if you change your decision -- return to the hospital.
== END 2020-06-11 09:30 | disposition left against medical advice (07) | DRG 141 ==
LOC: HO.ED 06-11 01:41 → HO.S3 06-11 02:34
PROVIDERS: Nurse Practitioner Family; Admitting Provider Internal Medicine; Emergency Provider Internal Medicine; Visit Provider Family Medicine
DX: J45.51 Severe persistent asthma with (acute) exacerbation (principal); J96.01 Acute respiratory failure with hypoxia; F11.10 Opioid abuse, uncomplicated; F29 Unspecified psychosis not due to a substance or known physiological condition; G47.09 Other insomnia; Z20.828 Contact with and (suspected) exposure to other viral communicable diseases; Z87.891 Personal history of nicotine dependence; Z79.899 Other long term (current) drug therapy
CPT/HCPCS: 36415; 71045; 80048; 85025; 87635; 93005; 94640; 94644; 96365; 96366; 96375; 99284; 99285; J1100; J2920; J3475

== ENCOUNTER 2020-06-16 15:52 | Inpatient (IN) | payer OTHER, SELFPAY ==
[2020-06-16] VITALS (7 sets, daily range): BP systolic 100–141; BP diastolic 64–99; PULSE 82–108; RESP 19–38; TEMP 36.6–36.9; O2SAT 94–100; BMI 21.2
[2020-06-16] MEDS: 0.9 % Sodium Chloride 1,000 ML 999 ML IVCONT (16:15)
--- NOTE | 2020-06-16 16:16 | ECG_ITS ---
Test Reason : SOB Blood Pressure : / mmHG Vent. Rate : 101 BPM Atrial Rate : 101 BPM P-R Int : 156 ms QRS Dur : 074 ms QT Int : 384 ms P-R-T Axes : 072 060 088 degrees QTc Int : 497 ms Sinus tachycardia Otherwise normal ECG When compared with ECG of 11-JUN-2020 00:33, No significant change was found Referred By: Catrachita José Electronically Signed By:LILY ABEL MD
--- NOTE | 2020-06-16 16:16 | XR_ITS ---
EXAMINATION: XR CHEST CLINICAL INFORMATION: Shortness of breath COMPARISON: June 10, 2020 and April 21, 2020 TECHNIQUE: AP portable view of the chest was obtained. FINDINGS: No significant abnormality is noted involving the heart, lungs, mediastinum, bony thorax or soft tissues. XR/XR chest 1V IMPRESSION: No acute disease.
--- NOTE | 2020-06-16 16:23 | ED.SOB ---
HPI - SOB/Dyspnea General Chief Complaint: Dyspnea Stated Complaint: 44 Time Seen by Provider: 06/16/20 16:05 Source: patient and EMS Mode of arrival: EMS Limitations: no limitations History of Present Illness HPI Narrative: 44-year-old male with history of asthma, long standing history of smoking, presented with shortness of breath, coughing for the last week, patient was seen in the emergency department for similar presentation last week had a negative COVID testing, patient was given magnesium some and Solu-Medrol and bronchodilator by EMS on arrival patient still wheezing with difficulty breathing initially was assessed by Dr. Schaefer then I took over patient sitting in bed tachypneic with expiratory wheezing using intercostal muscles to breathe. Related Data Home Medications Medication Instructions Recorded Confirmed albuterol sulfate 1 amp INHALATION Q4-6H PRN 06/11/20 06/16/20 risperidone 1 tab PO BID 06/11/20 06/16/20 Previous Rx's Medication Instructions Recorded albuterol sulfate 2 puff PO Q6H PRN #1 g 06/11/20 clonidine HCl 1 tab PO TID PRN #30 tab 06/11/20 prednisone 50 mg PO DAILY #5 tab 06/11/20 Allergies Allergy/AdvReac Type Severity Reaction Status Date / Time No Known Allergies Allergy Verified 04/21/20 22:15 [No Known Allergies*] Review of Systems Review of Systems: All other systems are reviewed and are negative Constitutional: Reports as per HPI and Reports no additional constitutional complaints Eyes: Reports as per HPI and Reports no additional eye complaints Reports system reviewed and no additional complaints, except as documented Cardiovascular: Reports as per HPI and Reports no additional cardiovascular complaints Respiratory: Reports as per HPI and Reports no additional respiratory complaints Gastrointestinal: Reports as per HPI and Reports no additional gastrointestinal complaints Genitourinary: Reports no additional female genitourinary complaints Musculoskeletal: Reports no additional musculoskeletal complaints Skin/Breast: Reports system reviewed and no additional complaints, except as docu Psychiatric: Reports no additional psychiatric complaints Endocrine: Reports no additional endocrine complaints Hematologic/Lymphatic: Reports no additional hematologic/lymphatic complaints Allergic/Immunologic: Reports no additional allergic/immunologic complaints Reports system reviewed and no additional complaints, except as documented and Reports Abnormal speech present PMFSH Past Medical History Medical History Asthma COPD (chronic obstructive pulmonary disease) Social History Social History Alcohol intake: never Smoking Status: Current every day smoker Smoked in Last 30 Days: No Use of substances other than those prescribed or required for medical reasons: No Advance Directives: No Advance Directives Information Provided: Yes Physical Exam Vital Signs: Vital Signs: Last Vital Signs Temp 98.4 F 06/16/20 21:11 Pulse 124 H 06/17/20 01:02 Resp 20 06/17/20 01:02 BP 135/85 06/17/20 01:02 Pulse Ox 97 06/17/20 01:02 Body Mass Index 21.2 Vital signs have been reviewed as normal and appeared to be correct. Blood pressure normal. Heart rate normal. Tachypnea. Temperature normal. Oxygen saturation normal. Appearance: Alert. Oriented X3. No acute distress. Head: Normal external exam. Normocephalic. Atraumatic. No Singh signs noted. No raccoon eyes noted Eyes: PERRLA. EOMI. Conjunctiva and sclera normal. Eyelids normal. ENT: EAC normal. TM's Normal. Pharynx normal. Uvula midline. Moist mucous membranes. No trismus noted. No drooling noted. No muffled voice noted. Neck: Normal inspection. Neck supple. FROM. No adenopathy. Thyroid Normal. No meningeal signs. No neck mass noted. CVS: Normal heart rate and rhythm. Heart sound normal. No murmurs noted. Pulses normal throughout. Respiratory: No respiratory distress. Painless inspiration. Breath sounds normal. Expiratory wheezes with prolonged expiration , decreases breathing sounds bilaterally,/No rales/rhonchi noted. Chest nontender. No accessory muscle usage noted or decreased air movement noted. Abdomen: Soft and nontender. Bowel sounds normal in all 4 quadrants. No distention noted. No organomegaly noted. No visible injury noted. Back: No CVA tenderness. Full range of motion noted. Skin: Skin warm and dry. Normal skin color. Normal skin turgor. No rashes/lesions/lacerations noted. Extremities: No lower extremity edema. Extremities exhibit normal range of motion. Extremities nontender. Neuro: Oriented X 3. No motor deficit. No sensory deficit. Reflexes normal. Course Course Course Narrative: Assessment and plan. 44-year-old male with history of longstanding asthma and smoking presented today with wheezing and shortness of breath, patient required multiple doses of bronchodilator, Solu-Medrol, magnesium, patient tested negative for COVID-19, chest x-ray showed no acute pneumonia. No indication for antibiotic patient had history of asthma no COPD history. A will admit for further bronchodilator therapy. Troponin came back 872, EKG showed no ST-teach changes, the case discussed with Dr. Moreland (cardiology) recommended to start the patient on heparin and follow-up with troponin trends. Reevaluation(s) Reevaluation #1: Patient physical exam is unchanged, blood pressure has been stable, no source of infection (patient only have history of asthma and not COPD), elevated troponin likely secondary to prolonged hypoxia secondary to asthma, patient also have lactic acidosis which is likely secondary to prolonged hypoxia/hypoxemia. Continue with oxygen supplement, hydration. Time: 23:35 Reevaluation #2: Patient was re-evaluated, increase difficulty breathing, increase inter coaster muscle retraction, patient is breathing at 32 breaths per minute appear getting tired, attempt to give more bronchodilator, intubation was discussed with the patient patient agreed. After intubation and sedation will consider Time: 00:49 Procedures Intubation Time out performed: Yes sedative: Versed paralytic: Succinylcholine Laryngoscope: fiber optic video scope ET Tube Size: 7.5 ET Tube Uncuffed: No Tube Secured Depth (cm): 22 Tube Secured Location: lips Tube Placement Confirmation: visualized tube passing through cords and confirmation by capnometry Patient Tolerated Procedure: well Intubation Complications: none MDM - SOB/Dyspnea Lab Data Result diagrams: 06/16/20 18:28 06/16/20 18:28 Labs: Lab Results 06/16/20 06/16/20 06/16/20 Range/Units 18:28 18:28 18:30 WBC 10.9 H (4.8-10.8) X10*3/uL RBC 4.76 (4.60-5.80) X10*6/uL Hgb 14.4 (14.0-18.0) g/dl Hct 43.3 (42-52) % MCV 91.0 (80-98) fL MCH 30.3 (27.0-33.0) pg MCHC 33.3 (31.0-36.0) g/dl RDW 13.0 (11.0-16.0) % Plt Count 259 (160-400) X10*3/uL MPV 9.8 (9.4-12.4) fL Immature Gran % (Auto) 0.3 (0.0-0.4) % Neut % (Auto) 88.3 H (45-73) % Lymph % (Auto) 7.6 L (20-40) % [place] % (Auto) 2.0 (2-11) % Eos % (Auto) 1.6 (0-4) % Baso % (Auto) 0.2 (0-2) % Lymph # (Auto) 0.8 L (1.2-4.9) X10*3/uL [place] # (Auto) 0.2 (0.1-1.2) X10*3/uL Eos # (Auto) 0.2 (0.0-0.4) X10*3/uL Baso # (Auto) 0.0 (0.0-0.2) X10*3/uL Abs Immat Gran (auto) 0.03 (0.00-0.03) X10*3/uL Absolute Neuts (auto) 9.6 H (2.0-8.3) X10*3/uL Absolute Nucleated RBC 0.000 (0.0-0.012) X10*3/uL Nucleated RBC % (auto) 0.0 (0.0-0.2) /100WBC PT (10.8-13.0) SEC INR (0.9-1.1) PTT (Heparin Protocol) (53-77.9) SEC Sodium 138 (135-145) mmol/L Potassium 4.0 (3.3-5.1) mmol/l Chloride 99 (96-108) mmol/L Carbon Dioxide 28 (22-29) mmol/L Anion Gap 15 (12-20) BUN 17 H (9-16) mg/dL Creatinine 1.11 (0.5-1.4) mg/dL Estim Creat Clear Calc 74.5 Estimated GFR > 60 Random Glucose 139 H (60-115) mg/dL Lactic Acid 2.6 H* (0.5-2.0) mmol/L Lactic Acid Fup @ 2Hr (0.5-2.0) mmol/L Calcium 8.8 (8.4-10.2) mg/dL Total Bilirubin 0.5 (0.0-1.0) mg/dL Direct Bilirubin 0.2 (0.0-0.5) mg/dL AST 20 (5-37) U/L ALT 13 (0-40) U/L Alkaline Phosphatase 69 (39-117) U/L Troponin I High Sens (<3.5-35.0) ng/L B-Natriuretic Peptide (<100) pg/mL Total Protein 7.8 (6.5-8.0) g/dL Albumin 4.4 (3.5-5.0) g/dL Lipase 8 (8-78) U/L COVID-19 ([facility]) (Negative) COVID-19 Clin Com 06/16/20 06/16/20 06/16/20 Range/Units 18:30 18:31 22:37 WBC (4.8-10.8) X10*3/uL RBC (4.60-5.80) X10*6/uL Hgb (14.0-18.0) g/dl Hct (42-52) % MCV (80-98) fL MCH (27.0-33.0) pg MCHC (31.0-36.0) g/dl RDW (11.0-16.0) % Plt Count (160-400) X10*3/uL MPV (9.4-12.4) fL Immature Gran % (Auto) (0.0-0.4) % Neut % (Auto) (45-73) % Lymph % (Auto) (20-40) % [place] % (Auto) (2-11) % Eos % (Auto) (0-4) % Baso % (Auto) (0-2) % Lymph # (Auto) (1.2-4.9) X10*3/uL [place] # (Auto) (0.1-1.2) X10*3/uL Eos # (Auto) (0.0-0.4) X10*3/uL Baso # (Auto) (0.0-0.2) X10*3/uL Abs Immat Gran (auto) (0.00-0.03) X10*3/uL Absolute Neuts (auto) (2.0-8.3) X10*3/uL Absolute Nucleated RBC (0.0-0.012) X10*3/uL Nucleated RBC % (auto) (0.0-0.2) /100WBC PT 12.9 (10.8-13.0) SEC INR 1.1 (0.9-1.1) PTT (Heparin Protocol) 44.1 L (53-77.9) SEC Sodium (135-145) mmol/L Potassium (3.3-5.1) mmol/l Chloride (96-108) mmol/L Carbon Dioxide (22-29) mmol/L Anion Gap (12-20) BUN (9-16) mg/dL Creatinine (0.5-1.4) mg/dL Estim Creat Clear Calc Estimated GFR Random Glucose (60-115) mg/dL Lactic Acid (0.5-2.0) mmol/L Lactic Acid Fup @ 2Hr (0.5-2.0) mmol/L Calcium (8.4-10.2) mg/dL Total Bilirubin (0.0-1.0) mg/dL Direct Bilirubin (0.0-0.5) mg/dL AST (5-37) U/L ALT (0-40) U/L Alkaline Phosphatase (39-117) U/L Troponin I High Sens 872.9 H (<3.5-35.0) ng/L B-Natriuretic Peptide < 10 (<100) pg/mL Total Protein (6.5-8.0) g/dL Albumin (3.5-5.0) g/dL Lipase (8-78) U/L COVID-19 ([facility]) Negative (Negative) COVID-19 Clin Com See Note 06/16/20 Range/Units 22:37 WBC (4.8-10.8) X10*3/uL RBC (4.60-5.80) X10*6/uL Hgb (14.0-18.0) g/dl Hct (42-52) % MCV (80-98) fL MCH (27.0-33.0) pg MCHC (31.0-36.0) g/dl RDW (11.0-16.0) % Plt Count (160-400) X10*3/uL MPV (9.4-12.4) fL Immature Gran % (Auto) (0.0-0.4) % Neut % (Auto) (45-73) % Lymph % (Auto) (20-40) % [place] % (Auto) (2-11) % Eos % (Auto) (0-4) % Baso % (Auto) (0-2) % Lymph # (Auto) (1.2-4.9) X10*3/uL [place] # (Auto) (0.1-1.2) X10*3/uL Eos # (Auto) (0.0-0.4) X10*3/uL Baso # (Auto) (0.0-0.2) X10*3/uL Abs Immat Gran (auto) (0.00-0.03) X10*3/uL Absolute Neuts (auto) (2.0-8.3) X10*3/uL Absolute Nucleated RBC (0.0-0.012) X10*3/uL Nucleated RBC % (auto) (0.0-0.2) /100WBC PT (10.8-13.0) SEC INR (0.9-1.1) PTT (Heparin Protocol) (53-77.9) SEC Sodium (135-145) mmol/L Potassium (3.3-5.1) mmol/l Chloride (96-108) mmol/L Carbon Dioxide (22-29) mmol/L Anion Gap (12-20) BUN (9-16) mg/dL Creatinine (0.5-1.4) mg/dL Estim Creat Clear Calc Estimated GFR Random Glucose (60-115) mg/dL Lactic Acid (0.5-2.0) mmol/L Lactic Acid Fup @ 2Hr 7.5 H* (0.5-2.0) mmol/L Calcium (8.4-10.2) mg/dL Total Bilirubin (0.0-1.0) mg/dL Direct Bilirubin (0.0-0.5) mg/dL AST (5-37) U/L ALT (0-40) U/L Alkaline Phosphatase (39-117) U/L Troponin I High Sens (<3.5-35.0) ng/L B-Natriuretic Peptide (<100) pg/mL Total Protein (6.5-8.0) g/dL Albumin (3.5-5.0) g/dL Lipase (8-78) U/L COVID-19 ([facility]) (Negative) COVID-19 Clin Com Imaging Data Chest x-ray: Radiologist's impression: No acute intrathoracic pathology. Discharge Plan Discharge Clinical Impression: Elevated troponin Asthma with exacerbation Qualifiers: Asthma severity: severe Asthma persistence: persistent Qualified Code(s): J45.51 - Severe persistent asthma with (acute) exacerbation Patient Disposition: Admitted As Inpatient
[2020-06-16] MEDS: Magnesium Sulfate/H2O 2 GM/50 ML PIGGYBACK IV (16:35)
[2020-06-16] MEDS: Albuterol Sulfate (0.083%) 2.5 MG/3 ML VIAL.NEB 5 MG INHALE ×2 (17:46→23:45)
[2020-06-16 18:40] LABS: Basophils Percent Auto 0.2 % (0-2); Eosinophils Absolute Auto 0.2 X10*3/uL (0.0-0.4); Eosinophils Percent Auto 1.6 % (0-4); Hematocrit 43.3 % (42-52); Hemoglobin 14.4 g/dl (14.0-18.0); Imm Gran Abs Auto 0.03 X10*3/uL (0.00-0.03); Imm Gran Pct Auto 0.3 % (0.0-0.4); Lymphocytes Absolute Auto 0.8 X10*3/uL (1.2-4.9); Lymphocytes Percent Auto 7.6 % (20-40); MANUAL DIFF FLAG NO; Mean Corpuscular HGB Conc 33.3 g/dl (31.0-36.0); Mean Corpuscular Hemoglobin 30.3 pg (27.0-33.0); Mean Platelet Volume 9.8 fL (9.4-12.4); Monocytes Absolute Auto 0.2 X10*3/uL (0.1-1.2); Neutrophils Absolute Auto 9.6 X10*3/uL (2.0-8.3); Neutrophils Percent Auto 88.3 % (45-73); Platelet Count 259 X10*3/uL (160-400); Red Blood Count 4.76 X10*6/uL (4.60-5.80); White Blood Count 10.9 X10*3/uL (4.8-10.8)
[2020-06-16 19:00] LABS: COVID-19 Test Negative (Negative); IDNOW Serial# 9DD0AD1C
[2020-06-16 19:18] LABS: Lactic Acid 2.6 mmol/L (0.5-2.0)
[2020-06-16 19:25] LABS: Alanine Aminotransferase 13 U/L (0-40); Albumin Level 4.4 g/dL (3.5-5.0); Alkaline Phosphatase 69 U/L (39-117); Anion Gap 15 (12-20); Aspartate Amino Transferase 20 U/L (5-37); Bilirubin Direct 0.2 mg/dL (0.0-0.5); Bilirubin Total 0.5 mg/dL (0.0-1.0); Blood Urea Nitrogen 17 mg/dL (9-16); Calcium 8.8 mg/dL (8.4-10.2); Carbon Dioxide 28 mmol/L (22-29); Chloride 99 mmol/L (96-108); Creatinine Clr Calc Pharmacy 74.5; Estimated Glomerular Filt Rate > 60; Glucose Random 139 mg/dL (60-115); Lipase 8 U/L (8-78); Sodium 138 mmol/L (135-145); Total Protein 7.8 g/dL (6.5-8.0)
[2020-06-16 19:39] LABS: B Type Natriuretic Peptide < 10 pg/mL (<100); Troponin-I High Sensitivity 872.9 ng/L (<3.5-35.0)
[2020-06-16] MEDS: LORazepam 1 MG TABLET PO ×2 (20:10→23:36)
[2020-06-16] MEDS: Heparin Sodium,Porcine 5,000 UNIT/ML VIAL 2536 UNIT IVPUSH (20:11)
[2020-06-16] MEDS: Heparin Sodium,Porcine/1/2NS 25,000 UNIT/250 ML IV.SOLN 7.61 UNIT IVCONT (20:14)
--- NOTE | 2020-06-16 20:15 | P.HPHOSP_ITS ---
History of Present Illness Date of Service: 06/16/20 Chief Complaint: Shortness of breath This is this is a 44-year-old male with past medical history of asthma as well as anxiety who presents to the hospital with complaints of shortness of breath. Patient reports that his symptoms started yesterday, associated with wheezing, coughing, no sputum production. No fever or chills. No abdominal pain, no nausea or vomiting. He has low appetite. No diarrhea or constipation. No urinary symptoms and no lower extremity edema. No orthopnea or PND. Reports an asthma exacerbation last week that got better with steroids. On arrival to the ED patient's vitals are significant for temperature of 97.8?, heart rate of 82, respiratory rate of 28, blood pressure of 113/81, satting 95% on room air. Patient apparently did desat while ambulating and is currently on a Venti mask satting 92%. Labs are significant for WBC count of 10.9, hemoglobin of 14.4 with hematocrit 43.3, sodium of 138, lactic acid of 2.6, patient's troponin found to be 872.9. COVID-19 negative EKG shows sinus tachycardia with a heart rate of 101, with no ST T wave changes Chest x-ray negative for any abnormality Past medical history: Asthma, anxiety Surgical history: Denies Family history: Denies Social history: Lives at home, reports that stopped smoking last week, denies any alcohol or illicit drugs Review of Systems Review of Systems: Yes all other systems are reviewed and are negative [facility] Medical History Asthma COPD (chronic obstructive pulmonary disease) Social History Alcohol intake: never Smoking Status: Current every day smoker Smoked in Last 30 Days: No Use of substances other than those prescribed or required for medical reasons: No Advance Directives: No Advance Directives Information Provided: Yes Meds Allergies Allergy/AdvReac Type Severity Reaction Status Date / Time No Known Allergies Allergy Verified 04/21/20 22:15 [No Known Allergies*] Home Medications Medication Instructions Recorded Confirmed Type albuterol sulfate 1 amp INHALATION Q4-6H PRN 06/11/20 06/16/20 History risperidone 1 tab PO BID 06/11/20 06/16/20 History Physical Exam Vital Signs and Narrative: Vital Signs: Last Vital Signs Temp 97.8 F 06/16/20 15:59 Pulse 95 06/16/20 18:40 Resp 19 06/16/20 18:40 BP 100/64 06/16/20 18:40 Pulse Ox 100 06/16/20 18:40 Body Mass Index 21.2 Const: General: cooperative and no acute distress Orientation/consciousness: patient oriented x3 Eyes: General: appearance normal, both eyes and all related structures Pupils: Equal, round and reactive pupils present Resp: Other: Tachypneic Effort & Inspection: normal respiratory effort and able to speak in complete sentences Auscultation: wheezes Cardio: Rate: regular rate Rhythm: regular rhythm GI: Palpation (GI): Soft to palpation Auscultation: normal bowel sounds Skin: General skin exam: no rashes or lesions noted Neuro: General: patient oriented x3 Cranial nerves: Yes Equal, round and reactive pupils present Cognition (Neuro): normal cognition Extrem: General: Yes normal to inspection and Yes no pedal edema Results Labs CBC and Chem 7: 06/16/20 18:28 06/16/20 18:28 Labs: Laboratory Results - last 24 hr 06/16/20 06/16/20 06/16/20 18:28 18:28 18:30 MCV 91.0 MCH 30.3 MCHC 33.3 RDW 13.0 Plt Count 259 MPV 9.8 Immature Gran % (Auto) 0.3 Neut % (Auto) 88.3 H Lymph % (Auto) 7.6 L [place] % (Auto) 2.0 Eos % (Auto) 1.6 Baso % (Auto) 0.2 Lymph # (Auto) 0.8 L [place] # (Auto) 0.2 Eos # (Auto) 0.2 Baso # (Auto) 0.0 Abs Immat Gran (auto) 0.03 Absolute Neuts (auto) 9.6 H Absolute Nucleated RBC 0.000 Nucleated RBC % (auto) 0.0 Anion Gap 15 Estim Creat Clear Calc 74.5 Estimated GFR > 60 Random Glucose 139 H Lactic Acid 2.6 H* Calcium 8.8 Total Bilirubin 0.5 Direct Bilirubin 0.2 AST 20 ALT 13 Alkaline Phosphatase 69 Troponin I High Sens B-Natriuretic Peptide Total Protein 7.8 Albumin 4.4 Lipase 8 COVID-19 ([facility]) COVID-19 Clin Com 06/16/20 06/16/20 18:30 18:31 MCV MCH MCHC RDW Plt Count MPV Immature Gran % (Auto) Neut % (Auto) Lymph % (Auto) [place] % (Auto) Eos % (Auto) Baso % (Auto) Lymph # (Auto) [place] # (Auto) Eos # (Auto) Baso # (Auto) Abs Immat Gran (auto) Absolute Neuts (auto) Absolute Nucleated RBC Nucleated RBC % (auto) Anion Gap Estim Creat Clear Calc Estimated GFR Random Glucose Lactic Acid Calcium Total Bilirubin Direct Bilirubin AST ALT Alkaline Phosphatase Troponin I High Sens 872.9 H B-Natriuretic Peptide < 10 Total Protein Albumin Lipase COVID-19 ([facility]) Negative COVID-19 Clin Com See Note ECG Interpretation: Sinus tachycardia, no ST T-wave changes Imaging Radiologist's Impressions: Impressions Chest X-Ray 06/16/20 16:16 IMPRESSION: No acute disease. Assessment and Plan (1) Acute respiratory failure with hypoxia: Status: Acute (2) Asthma with exacerbation: Qualifiers: Asthma persistence: persistent Asthma severity: severe Qualified Code(s): J45.51 - Severe persistent asthma with (acute) exacerbation Status: Acute (3) Elevated troponin: Status: Acute 44-year-old male with past medical history of asthma and anxiety who presents to the hospital with hypoxia and asthma exacerbation. # acute hypoxic respiratory failure - secondary to asthma exacerbation, no evidence of pneumonia, COVID-19 negative - on NRB sating 100% Plan: - Received Solu-medrol in ED, will continue w 40IV BID - Duo-Neb PRN and schedule QID - Although has leukocytosis, there is no evidence of PNA on imaging, afebrile, no cough therefore will keep off abx at this time - titrate O2 off as tolerated # Asthma exacerbation - Poorly controlled asthma, reports at least one attack monthly - Will need daily maintenance inhaler prior to discharge # Elevated Trop - most likely type 2 due to hypoxia, pt has no chest pain, no ekg changes suggestive of ACS - cardiology was consulted and pt will be placed on heparin drip as trop significantly elevated - will trend one more time - per cardiology, will dc heparin if trop is flat DVT ppx: Heparin subq
[2020-06-16 20:36] LABS: Reflex Lactate? Lactic Acid Added
[2020-06-16 22:56] LABS: INTERNATIONAL NORM RATIO 1.1 (0.9-1.1); Prothrombin Time 12.9 SEC (10.8-13.0)
[2020-06-16 22:59] LABS: PTT Heparin Drip 44.1 SEC (53-77.9)
[2020-06-16 23:29] LABS: ~Lactic Acid-LAB USE ONLY 7.5 mmol/L (0.5-2.0)
[2020-06-17] VITALS (26 sets, daily range): BP systolic 111–146; BP diastolic 52–94; PULSE 83–124; RESP 9–34; TEMP 36.3–37.2; O2SAT 91–99
--- NOTE | 2020-06-17 | ECG_ITS ---
Test Reason : r/o TX Blood Pressure : / mmHG Vent. Rate : 101 BPM Atrial Rate : 101 BPM P-R Int : 164 ms QRS Dur : 070 ms QT Int : 382 ms P-R-T Axes : 070 064 085 degrees QTc Int : 495 ms Sinus tachycardia Possible Septal infarct , age undetermined Abnormal ECG When compared to the previous EKG of Possible Septal infarct changes are present which may be due to lead placement Referred By: Dean Bah Electronically Signed By:LILY ABEL MD
[2020-06-17] MEDS: 0.9 % Sodium Chloride 1,000 ML 999 ML IVCONT (00:08)
--- NOTE | 2020-06-17 00:29 | PC.NURSE ---
0029 medicated with 20mg etomidate, 100mg succs at 0030. hr 106, 95% on the 8L breathing treatment, 138/94. 0031 patient bradicardiac at 50 when sedation was given. positive color change, chest rise, bilateral breath sounds. 0032 tube is a 7.5 and 25 at the lip. hr 68, b/p 181/117 0034 patient fighting the tube. given versed 2mg. 0041 patient contniues to sit upright biting at the tube. additional medications ordered for sedation while proprofol is being hung.
[2020-06-17 00:43] LABS: Reflex Lactate? 2 Y
[2020-06-17] MEDS: propofoL 1,000 MG/100 ML VIAL 7.61 MG IVCONT (00:45)
[2020-06-17] MEDS: Midazolam HCl/PF 2 MG/2 ML VIAL IVPUSH ×3 (00:48→01:00)
[2020-06-17] MEDS: Succinylcholine Chloride 200 MG/10 ML VIAL 100 MG IVPUSH (00:49)
[2020-06-17] MEDS: Etomidate 20 MG/10 ML VIAL IVPUSH ×2 (00:49→01:04)
--- NOTE | 2020-06-17 00:56 | PC.NURSE ---
patient sitting upright in bed. biting and trying to remove the tube, coughing. increasing sedation and calling provider back for additional medications. orders for additional paralytic and to keep increasing the proprofol.
--- NOTE | 2020-06-17 01:02 | PC.NURSE ---
vent setting 16 450 3% and peep of 5
--- NOTE | 2020-06-17 01:21 | P.HPCC_ITS ---
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 There had been a couple oxygen levels of 88% whil e on room air and he was placed on nasal cannula, later transitioned to a Venturi mask. His laboratory workup was not significantly abnormal with exception of white count of 10.9, lactic acid 2.6 which after several inhale nebulizations it went up to 7.5. His high sensitive troponin was a 72. No EKG changes are noted. COVID negative. Chest x-ray showed no evidence of infiltrates and no evidence of sepsis was noted. The patient did not receive antibiotics and only got about 100 cc of IV fluids. Reportedly, the patient was intubated due to the concern of deterioration given the high lactic acid. I had I bold this patient upon request of the respiratory therapist prior to intubation and the patient appeared to be sitting up on the stretcher receiving a breathing treatment in no apparent distress. Subsequently patient was transferred to the ICU after intubation. At this point not able to answer questions for the patient is sedated with propofol. ROS: Unable to obtain Past Medical History: As above Past Surgical History: As above Family history: Unknown Social History: Lives at home. Reported to be a smoker, no history of drug or alcohol intake per chart. CODE STATUS: Full code Allergies: No known drug allergies Home Medications: See med rec SEPSIS NO SUSPECTED EXAM DONE AT 0100 am PHYSICAL EXAM: VS: 114/72, heart rate 110, respiratory rate 26, O2 sat 100% VENT SETTINGS : AC 16, 450, 30% FiO2 peep of 5 General: sedated. Skin: Intact, no lesions, edema, erythema, clubbing or cyanosis. No ulcers. HEENT: Head is normocephalic, atraumatic, pupils equal round reactive to light accommodation bilaterally. Extraocular movements appear intact. Buccal mucosa is moist, Neck is supple without lymphadenopathy. Cardiac: Clear S1-S2, no murmurs rubs or gallops. Pulmonary: Diffuse wheezing bilaterally and throughout, no crackles, rales or rhonchi. Abdomen: Protuberant, positive bowel sounds in all 4 quadrants. Soft, nontender, no rebound or guarding. Musculoskeletal: No cogwheeling or stiffness noted on passive range of motion of the upper and lower extremities of major joints. No leg edema or asymmetry. Neurologic: As above sedated Vascular: 2+ pulses upper and lower extremities distally. Capillary refill less than 2 seconds each of the fingers and toes bilaterally. SIGNIFICANT LABORATORY DATA: As above REVIEW OF IMAGES: Chest x-ray shows no evidence of pulmonary disease. EKG REVIEW: Sinus tachycardia 101 beats per minute. No ST elevations, no depressions. QTC 497. No comparison. ASSESSMENT AND PLAN: 1. Hypoxic respiratory failure due to asthma exacerbation 2. Acute asthma exacerbation 3. Trop elevation likely due to demand ischemiawill r/o NSTEMI 4. Lactic acidosis NO evidence of sepsis, likely due to recurrent nebulizer treatments. 5. Clinical dehydration Patient was admitted to ICU, given that I had seen the patient without significant respiratory distress prior to his transfer, I have decided to shut off his propofol. I have tried him on pressure support, patient is responsive to my commands, he has an O2 sat of 97-98% on room air with a respiratory rate of 24 and tidal volumes in the 600s. My plan is to place him on high-flow O2 and if necessary on BiPAP. Will continue with steroids, DuoNebs around the clock and albuterol p.r.n. will repeat troponin if this is higher, will continue with heparin drip initially ordered in the ER otherwise will discontinue. I will not continue to monitor lactic acid. I will give him 1 L of fluid. Order an ABG now as well as morning labs and COVID biomarkers even tho his rapid test is negative. Zithromax will be added to to risk of underlying respiratory infection although there is no evidence of pneumonia. Review of the blood gas reveals a pH of 7.35, pCO2 of 38, PO2 of 85, HC03 of 20 with a base excess of-4.8. At this time 2:45 a.m.., patient is responsive to commands, in no acute distress, no accessory muscle usage whatsoever. At this point the patient was successfully extubated and placed on high-flow O2 sat of 98% with FIo2 30% at 30 L of . Zofran given for nausea and will use morphine for respiratory distress. Repeat labs in the morning. If patient remains stable, plan is to transfer him out of the ICU to [facility] [place] in the morning. GI PROPHYLAXIS: Prilosec p.o. DVT PROPHYLAXIS: on heparin gtt, will add ASA and statin ? Card consult in am Critical care time used for critical evaluation of this patient, diagnosis, treatment and coordination of care, review her records and documentation TOTAL CRITICAL CARE TIME 90 MIN . Patient's care was discussed in detail with Dr. Bah. He is aware of all the above as well as the plan of care for this patient. [facility] Past Medical History Medical History Asthma COPD (chronic obstructive pulmonary disease) Social History Social History Alcohol intake: never Smoking Status: Current every day smoker Smoked in Last 30 Days: No Use of substances other than those prescribed or required for medical reasons: No Advance Directives: No Advance Directives Information Provided: Yes Meds Allergies Allergy/AdvReac Type Severity Reaction Status Date / Time No Known Allergies Allergy Verified 04/21/20 22:15 [No Known Allergies*] Home Medications Medication Instructions Recorded Confirmed Type albuterol sulfate 1 amp INHALATION Q4-6H PRN 06/11/20 06/16/20 History risperidone 1 tab PO BID 06/11/20 06/16/20 History Physical Exam Vital Signs: Vital Signs: Last Vital Signs Temp 98.4 F 06/16/20 21:11 Pulse 124 H 06/17/20 01:02 Resp 20 06/17/20 01:02 BP 135/85 06/17/20 01:02 Pulse Ox 97 06/17/20 01:02 Body Mass Index 21.2 Results Labs CBC and Chem 7: 06/16/20 18:28 06/17/20 02:19 Labs: Laboratory Results - last 24 hr 06/16/20 06/16/20 06/16/20 18:28 18:28 18:30 MCV 91.0 MCH 30.3 MCHC 33.3 RDW 13.0 Plt Count 259 MPV 9.8 Immature Gran % (Auto) 0.3 Neut % (Auto) 88.3 H Lymph % (Auto) 7.6 L [place] % (Auto) 2.0 Eos % (Auto) 1.6 Baso % (Auto) 0.2 Lymph # (Auto) 0.8 L [place] # (Auto) 0.2 Eos # (Auto) 0.2 Baso # (Auto) 0.0 Abs Immat Gran (auto) 0.03 Absolute Neuts (auto) 9.6 H Absolute Nucleated RBC 0.000 Nucleated RBC % (auto) 0.0 PT INR PTT (Heparin Protocol) Anion Gap 15 Estim Creat Clear Calc 74.5 Estimated GFR > 60 Random Glucose 139 H Lactic Acid 2.6 H* Lactic Acid Fup @ 2Hr Calcium 8.8 Total Bilirubin 0.5 Direct Bilirubin 0.2 AST 20 ALT 13 Alkaline Phosphatase 69 Troponin I High Sens B-Natriuretic Peptide Total Protein 7.8 Albumin 4.4 Lipase 8 COVID-19 ([facility]) COVID-19 [employer] 06/16/20 06/16/20 06/16/20 18:30 18:31 22:37 MCV MCH MCHC RDW Plt Count MPV Immature Gran % (Auto) Neut % (Auto) Lymph % (Auto) [place] % (Auto) Eos % (Auto) Baso % (Auto) Lymph # (Auto) [place] # (Auto) Eos # (Auto) Baso # (Auto) Abs Immat Gran (auto) Absolute Neuts (auto) Absolute Nucleated RBC Nucleated RBC % (auto) PT 12.9 INR 1.1 PTT (Heparin Protocol) 44.1 L Anion Gap Estim Creat Clear Calc Estimated GFR Random Glucose Lactic Acid Lactic Acid Fup @ 2Hr Calcium Total Bilirubin Direct Bilirubin AST ALT Alkaline Phosphatase Troponin I High Sens 872.9 H B-Natriuretic Peptide < 10 Total Protein Albumin Lipase COVID-19 ([facility]) Negative COVID-19 [employer] See Note 06/16/20 22:37 MCV MCH MCHC RDW Plt Count MPV Immature Gran % (Auto) Neut % (Auto) Lymph % (Auto) [place] % (Auto) Eos % (Auto) Baso % (Auto) Lymph # (Auto) [place] # (Auto) Eos # (Auto) Baso # (Auto) Abs Immat Gran (auto) Absolute Neuts (auto) Absolute Nucleated RBC Nucleated RBC % (auto) PT INR PTT (Heparin Protocol) Anion Gap Estim Creat Clear Calc Estimated GFR Random Glucose Lactic Acid Lactic Acid Fup @ 2Hr 7.5 H* Calcium Total Bilirubin Direct Bilirubin AST ALT Alkaline Phosphatase Troponin I High Sens B-Natriuretic Peptide Total Protein Albumin Lipase COVID-19 ([facility]) COVID-19 Clin Com Imaging Radiologist's Impressions: Impressions Chest X-Ray 06/16/20 16:16 IMPRESSION: No acute disease.
[2020-06-17] MEDS: fentaNYL citrate/PF 100 MCG/2 ML VIAL 25 MCG IVPUSH (01:41)
[2020-06-17] MEDS: Lactated Ringers 1,000 ML 100 ML IVCONT ×2 (02:12→13:47)
[2020-06-17 02:48] LABS: Basophils Percent Auto 0.1 % (0-2); Eosinophils Percent Auto 0.1 % (0-4); Hematocrit 44.7 % (42-52); Hemoglobin 14.7 g/dl (14.0-18.0); Imm Gran Abs Auto 0.04 X10*3/uL (0.00-0.03); Imm Gran Pct Auto 0.4 % (0.0-0.4); Lymphocytes Absolute Auto 0.7 X10*3/uL (1.2-4.9); Lymphocytes Percent Auto 6.5 % (20-40); MANUAL DIFF FLAG SCAN; Mean Corpuscular HGB Conc 32.9 g/dl (31.0-36.0); Mean Corpuscular Hemoglobin 29.6 pg (27.0-33.0); Mean Corpuscular Volume 90.1 fL (80-98); Mean Platelet Volume 9.9 fL (9.4-12.4); Monocytes Absolute Auto 0.1 X10*3/uL (0.1-1.2); Monocytes Percent Auto 1.4 % (2-11); Neutrophils Absolute Auto 9.4 X10*3/uL (2.0-8.3); Neutrophils Percent Auto 91.5 % (45-73); Platelet Count 269 X10*3/uL (160-400); Red Blood Count 4.96 X10*6/uL (4.60-5.80); Red Cell Distribution Width 13.2 % (11.0-16.0); SCAN SMEAR FLAG 1; White Blood Count 10.2 X10*3/uL (4.8-10.8)
[2020-06-17 02:51] LABS: Pt Ventilation O2% 30%
[2020-06-17] MEDS: Morphine Sulfate 2 MG/ML CARTRIDGE IVPUSH (02:52)
[2020-06-17] MEDS: ondansetron HCL 4 MG/2 ML VIAL IVPUSH (02:53)
[2020-06-17 02:54] LABS: ABG PCO2 38 mmhg (32-45); Base Excess ABG -4.8; HCO3 ABG 20 mmol/l (22-26); Oxygen Saturation ABG 96.4 %; PO2 ABG 85 mmhg (83-108); pH ABG 7.35 (7.35-7.45)
[2020-06-17 02:56] LABS: Anion Gap 20 (12-20); Blood Urea Nitrogen 18 mg/dL (9-16); Calcium 8.8 mg/dL (8.4-10.2); Carbon Dioxide 20 mmol/L (22-29); Chloride 104 mmol/L (96-108); Creatinine Clr Calc Pharmacy 74.5; Estimated Glomerular Filt Rate > 60; Glucose Random 161 mg/dL (60-115); Potassium 4.2 mmol/l (3.3-5.1); Sodium 140 mmol/L (135-145)
[2020-06-17 03:08] LABS: SLIDE REVIEW VERIFIED
[2020-06-17 03:10] LABS: PTT Heparin Drip 60.3 SEC (53-77.9)
[2020-06-17 03:18] LABS: Troponin-I High Sensitivity 1589.4 ng/L (<3.5-35.0)
[2020-06-17] MEDS: Heparin Sodium,Porcine/1/2NS 25,000 UNIT/250 ML IV.SOLN 8.88 UNIT IVCONT (03:59)
[2020-06-17] MEDS: Aspirin 81 MG TAB.CHEW 324 MG PO (04:24)
--- NOTE | 2020-06-17 04:50 | PC.NURSE ---
pt arrived intubated and placed immediately on pressure support ventilation. pt nodding head to question and giving the thumbs up gesture when asked how he was. pt manning purposefully with good rom. complexion pale/skin warm/dry. no edema. breath sounds diminshed with i/e wheezes. sao2 95-97%. ecg displays sr-st. b/p stable. afebrile. abdomen soft/nontender. belching and indicating he is nauseated. PLAN-1. CONTINUE PRESSURE SUPPORT VENTILATION 2. ABG IN 30 MINUTES 3. PLAN ON EXTUBATION 4. ZOFRAN 4 MG IVP 5. MORPHINE 2 MG IV 6. PTT-HD AT 0230 7. TROPONIN INCREASING WILL GIVE ASA 325 MG PO 8. HEPARIN DRIP UNCHANGED WILL REPEAT PTT HD AT 0830 9. EXTUBATED AND PLACED ON HIGH FLOW 30 LPM/30%
[2020-06-17 05:47] LABS: Hematocrit 42.3 % (42-52); Hemoglobin 14.3 g/dl (14.0-18.0); Mean Corpuscular HGB Conc 33.8 g/dl (31.0-36.0); Mean Corpuscular Hemoglobin 29.8 pg (27.0-33.0); Mean Corpuscular Volume 88.1 fL (80-98); Mean Platelet Volume 10.4 fL (9.4-12.4); Platelet Count 281 X10*3/uL (160-400); Red Cell Distribution Width 13.1 % (11.0-16.0)
[2020-06-17 06:03] LABS: INTERNATIONAL NORM RATIO 1.1 (0.9-1.1); Prothrombin Time 12.6 SEC (10.8-13.0)
[2020-06-17 06:06] LABS: Anion Gap 16 (12-20); Blood Urea Nitrogen 17 mg/dL (9-16); C Reactive Protein 1.85 mg/dL (< or = 0.50); Calcium 9.3 mg/dL (8.4-10.2); Carbon Dioxide 22 mmol/L (22-29); Chloride 105 mmol/L (96-108); Estimated Glomerular Filt Rate > 60; Glucose Random 144 mg/dL (60-115); Potassium 4.3 mmol/l (3.3-5.1); Sodium 139 mmol/L (135-145)
[2020-06-17 06:07] LABS: Cholesterol 190 mg/dL; HDL Cholesterol 51 mg/dL; LDL Cholesterol Calculated 131 mg/dl; Triglycerides 44 mg/dL
[2020-06-17 06:08] LABS: D Dimer < 200 NG/ML
[2020-06-17 06:17] LABS: Base Excess VBG -1.9 mmol/L; HCO3 VBG 23 mmol/L; Oxygen Saturation VBG 87.5 %; PCO2 VBG 38 mmhg; PO2 VBG 51 mmhg; pH VBG 7.39 (7.32-7.43)
[2020-06-17 06:26] LABS: Cancel Lactic Acid Canceled
[2020-06-17 06:30] LABS: Ferritin 80 ng/mL (20-250)
[2020-06-17] MEDS: Omeprazole 20 MG CAPSULE.DR PO (06:37)
[2020-06-17] MEDS: Albuterol/Iprat 2.5/0.5MG 3 ML AMPUL.NEB INHALE ×3 (07:24→16:09)
[2020-06-17 07:38] LABS: MANUAL DIFF FLAG NO
[2020-06-17 07:39] LABS: Basophils Percent Auto 0.1 % (0-2); Eosinophils Percent Auto 0.1 % (0-4); Imm Gran Abs Auto 0.07 X10*3/uL (0.00-0.03); Imm Gran Pct Auto 0.5 % (0.0-0.4); Lymphocytes Percent Auto 6.8 % (20-40); Monocytes Absolute Auto 0.4 X10*3/uL (0.1-1.2); Monocytes Percent Auto 2.6 % (2-11); Neutrophils Absolute Auto 12.7 X10*3/uL (2.0-8.3); Neutrophils Percent Auto 89.9 % (45-73)
[2020-06-17 07:57] LABS: Procalcitonin 0.09 ng/mL
--- NOTE | 2020-06-17 08:31 | MHC.CM.PN ---
CM met with patient at the bedside who reports he is independent and lives with his mom. Patient does not have a HCP and declines filling one out today. Discussed discharge plan, home no services. Patient will need transportation home. CM will continue to follow for discharge needs.
[2020-06-17 08:40] LABS: PTT Heparin Drip 61.1 SEC (53-77.9)
[2020-06-17] MEDS: Aspirin 325 MG TABLET PO (09:53)
[2020-06-17] MEDS: Azithromycin 500 MG in 0.9 % Sodium Chloride 250 ML 125 MG IV (10:06)
[2020-06-17] MEDS: risperiDONE 1 MG TABLET PO (10:11)
[2020-06-17] MEDS: cloNIDine HCL 0.2 MG TABLET PO (10:31)
--- NOTE | 2020-06-17 10:33 | PC.NURSE ---
Addendum entered by Isabella Wilson RN 06/17/20 17:56: Patient A&Ox4 and has been educated several times throughout this RN's shift on indications for hospitalization in the ICU for asthma exacerbations, NSTEMI, and post extubation. Patient also educated on the importance of medications including heparin drip and the plan of care including staying in the hospital, transferring to the intermediate care floor, continuing on the heparin drip, cardio consult in the morning and getting an echo cardiogram in the morning. Patient very anxious throughout the shift, Dr. Bah made aware, several attempts made to assist patient in relaxing including reducing environmental stimuli, distraction with tv, education, restarting home anti anxiety medications and adding prn po ativan to medication regiment. 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 Withdrawal monitoring with COWS scale initiated, Dr. Bah made aware, and medications ordered/administered. at bedside to educate patient in the morning and afternoon. Patient verbalizing understanding of why he was hospitalized ( asthma and issues with his heart ) and medications being use to treat asthma exacerbation/NSTEMI as stated above. Patient also able to verbalize understanding the importance of staying until the morning for additional test and cardio consult. At 1700 patient still residing in the ICU and demanding to leave. Patient observed to be agitated, anxious, with rapid and escalating speech as well as fidgeting. Additional RN made attempts to calm patient and asking what additional measures could be used for comfort and to help the patient stay. Patient again insisting he is leaving. Dr. Stanley notified and at bedside to assess patient. thoroughly reviewed befits of staying including further testing, treatment, and cardio consult. also explaining risks including possible . Patient able to verbalize understanding the importance of both risks and benefits and is insisting on leaving AMA. AMA form signed. IV and telepack removed. Patient able to use phone to call for a ride. Patient escorted by [employer] to the lobby via wheelchair. Nursing parking lot supervisor made aware. Incident report filed. Addendum entered by Isabella Wilson RN 06/17/20 16:14: Patient continuing to state he feels more anxious and wants to go home. Educated patient on the importance of staying to better control his asthma and continuing the heparin drip. Patient also states he has not seen his PCP in over 6 months and has been out of his inhalers for that time. MD notified. Patient audibly wheezing. Dr. Bah notified and at bedside to discuss importance of staying and being transferred to [facility] [place]. 2 mg po ativan and 1 mg IV dilaudid ordered and administered. RT at beside for breathing treatment. Awaiting transfer. Patient's mother updated by . Original Note: Patient remains on HFNC 30%fio2/30L with o2 sats trending in the mid 90s. Haim expiratory wheezing throughout noted on auscultation. RT at bedside with scheduled treatment. Observed patient fidgeting in bed and diaphoretic. HR in the 80s and SBP trending in the 130s to 140s. Patient stating he feels anxious. This RN assessed patient's possible drug use history and patient admitting to using heroin 06/16/20 early afternoon, prior to this hospitalization overnight. made aware. One time dose of Clonodine .2mg ordered and administered, scheduled home dose of .1 mg TID to be continued. In addition, home dose of Risperidone 1 mg BID ordered and administered. Will reassess medication effectiveness and continue to monitor s/s of withdrawal.
--- NOTE | 2020-06-17 11:36 | PM.CCPN ---
Subjective Subjective Date of Service: 06/17/20 Interval History: Mr. Cuellar was admitted to the ICU early this morning after intubated in the ED because of tachypnea and anxiety. The patient is 44-year-old male with underlying history of insomnia, asthma, COPD (not on oxygen at home), psychotic disorder, and multisubstance abuse (tox screen in the past positive for opiates, cocaine, and PCP). The patient admits to having used heroin yesterday. He lives at home, in an apartment, w his mother. Presented to the emergency room last night with complaints of shortness of breath. He was wheezing, mildly tachypneic, and had O2 sat of 92% on room air. Placed on nasal cannula, later transitioned to a Venturi mask. His laboratory workup was not significantly abnormal with exception of lactic acid 2.6 (prob 2? beta-agonists), and elevated trop. EKG showed only poor R-wave progression V1-V2. COVID negative. Chest x-ray showed NAD. The patient was given bronchodilators and steroids. Ultimately, the patient was intubated due to the concern of deterioration (inappropriate, IMO). He was then admitted to the ICU. In the ICU he was continued on bronchodilators and steroids, given Zithromax for to anti-inflammatory effect, and started on heparin infusion because of rising troponin. He was extubated shortly thereafter. This morning he is is fully awake, and grossly very anxious, if not possibly having mild opiate withdrawal symptoms. He wants to go home. He denies chest pain. See Vital Signs below. He?s breathing easy on room air, with a sat of 92%. No JVD. Chest is clear to auscultation, with a normal expiratory phase. He has no edema. LABORATORY DATA: As below. Notably, the 2nd high sensitivity troponin was up to 1580 early this morning. EKG this morning shows loss of R-waves in V1 and V2. IMPRESSION: 44-year-old male with pertinent past medical history of asthma/COPD, psychotic disorder, and multi substance abuse. 1. COPD exacerbation. Continue bronchodilators and steroids. Continue Zithromax 250 mg po daily x4 days. 2. R/o OH. Needs cardiol consult and echo. For now, cont anticoag, ASA, statin. 3. Subst abuse. Would benefit from seeing a counselor. For now, continue his clonidine. 4. Psyhcosis/anxiety. Continue his Risperdal. I gave him one dose Ativan 2mg orally, seems more calm. I told him that his condition was life threatening and strongly urged him to stay in the hospital. So far he?s agreed. Stable for [place] [facility] Will sign out to hospitalists. Time: . Physical Exam Vital Signs: Vital Signs: Last Vital Signs Temp 97.4 F 06/17/20 08:00 Pulse 95 06/17/20 11:00 Resp 22 H 06/17/20 11:11 BP 133/85 06/17/20 11:00 Pulse Ox 93 06/17/20 11:00 Body Mass Index 21.2 Objective Data Labs CBC & Chem 7: 06/17/20 05:07 06/17/20 05:07 Labs: Laboratory Results - last 24 hr 06/16/20 06/16/20 06/16/20 18:28 18:28 18:30 WBC 10.9 H RBC 4.76 Hgb 14.4 Hct 43.3 MCV 91.0 MCH 30.3 MCHC 33.3 RDW 13.0 Plt Count 259 MPV 9.8 Immature Gran % (Auto) 0.3 Neut % (Auto) 88.3 H Lymph % (Auto) 7.6 L [place] % (Auto) 2.0 Eos % (Auto) 1.6 Baso % (Auto) 0.2 Lymph # (Auto) 0.8 L [place] # (Auto) 0.2 Eos # (Auto) 0.2 Baso # (Auto) 0.0 Abs Immat Gran (auto) 0.03 Absolute Neuts (auto) 9.6 H Absolute Nucleated RBC 0.000 Nucleated RBC % (auto) 0.0 Smear Tech's Comments PT INR PTT (Heparin Protocol) D-Dimer ABG pH ABG pCO2 ABG pO2 ABG HCO3 ABG O2 Saturation ABG Base Excess VBG pH VBG pCO2 VBG pO2 VBG HCO3 VBG O2 Saturation VBG Base Excess Oxygen Given Sodium 138 Potassium 4.0 Chloride 99 Carbon Dioxide 28 Anion Gap 15 BUN 17 H Creatinine 1.11 Estim Creat Clear Calc 74.5 Estimated GFR > 60 Random Glucose 139 H Lactic Acid 2.6 H* Lactic Acid Fup @ 2Hr Calcium 8.8 Ferritin Total Bilirubin 0.5 Direct Bilirubin 0.2 AST 20 ALT 13 Alkaline Phosphatase 69 Troponin I High Sens C-Reactive Protein B-Natriuretic Peptide Total Protein 7.8 Albumin 4.4 Triglycerides Cholesterol LDL Cholesterol, Calc HDL Cholesterol Lipase 8 Procalcitonin COVID-19 ([facility]) COVID-19 Clin Com 06/16/20 06/16/20 06/16/20 18:30 18:31 22:37 WBC RBC Hgb Hct MCV MCH MCHC RDW Plt Count MPV Immature Gran % (Auto) Neut % (Auto) Lymph % (Auto) [place] % (Auto) Eos % (Auto) Baso % (Auto) Lymph # (Auto) [place] # (Auto) Eos # (Auto) Baso # (Auto) Abs Immat Gran (auto) Absolute Neuts (auto) Absolute Nucleated RBC Nucleated RBC % (auto) Smear Tech's Comments PT 12.9 INR 1.1 PTT (Heparin Protocol) 44.1 L D-Dimer ABG pH ABG pCO2 ABG pO2 ABG HCO3 ABG O2 Saturation ABG Base Excess VBG pH VBG pCO2 VBG pO2 VBG HCO3 VBG O2 Saturation VBG Base Excess Oxygen Given Sodium Potassium Chloride Carbon Dioxide Anion Gap BUN Creatinine Estim Creat Clear Calc Estimated GFR Random Glucose Lactic Acid Lactic Acid Fup @ 2Hr Calcium Ferritin Total Bilirubin Direct Bilirubin AST ALT Alkaline Phosphatase Troponin I High Sens 872.9 H C-Reactive Protein B-Natriuretic Peptide < 10 Total Protein Albumin Triglycerides Cholesterol LDL Cholesterol, Calc HDL Cholesterol Lipase Procalcitonin COVID-19 ([facility]) Negative COVID-19 Clin Com See Note 06/16/20 06/17/20 06/17/20 22:37 02:16 02:19 WBC 10.2 RBC 4.96 Hgb 14.7 Hct 44.7 MCV 90.1 MCH 29.6 MCHC 32.9 RDW 13.2 Plt Count 269 MPV 9.9 Immature Gran % (Auto) 0.4 Neut % (Auto) 91.5 H Lymph % (Auto) 6.5 L [place] % (Auto) 1.4 L Eos % (Auto) 0.1 Baso % (Auto) 0.1 Lymph # (Auto) 0.7 L [place] # (Auto) 0.1 Eos # (Auto) 0.0 Baso # (Auto) 0.0 Abs Immat Gran (auto) 0.04 H Absolute Neuts (auto) 9.4 H Absolute Nucleated RBC 0.000 Nucleated RBC % (auto) 0.0 Smear Tech's Comments VERIFIED PT INR PTT (Heparin Protocol) D-Dimer ABG pH 7.35 ABG pCO2 38 ABG pO2 85 ABG HCO3 20 L ABG O2 Saturation 96.4 ABG Base Excess -4.8 VBG pH VBG pCO2 VBG pO2 VBG HCO3 VBG O2 Saturation VBG Base Excess Oxygen Given 30% Sodium Potassium Chloride Carbon Dioxide Anion Gap BUN Creatinine Estim Creat Clear Calc Estimated GFR Random Glucose Lactic Acid Lactic Acid Fup @ 2Hr 7.5 H* Calcium Ferritin Total Bilirubin Direct Bilirubin AST ALT Alkaline Phosphatase Troponin I High Sens C-Reactive Protein B-Natriuretic Peptide Total Protein Albumin Triglycerides Cholesterol LDL Cholesterol, Calc HDL Cholesterol Lipase Procalcitonin COVID-19 ([facility]) COVID-19 [employer] 06/17/20 06/17/20 06/17/20 02:19 02:19 02:19 WBC RBC Hgb Hct MCV MCH MCHC RDW Plt Count MPV Immature Gran % (Auto) Neut % (Auto) Lymph % (Auto) [place] % (Auto) Eos % (Auto) Baso % (Auto) Lymph # (Auto) [place] # (Auto) Eos # (Auto) Baso # (Auto) Abs Immat Gran (auto) Absolute Neuts (auto) Absolute Nucleated RBC Nucleated RBC % (auto) Smear Tech's Comments PT INR PTT (Heparin Protocol) 60.3 D D-Dimer ABG pH ABG pCO2 ABG pO2 ABG HCO3 ABG O2 Saturation ABG Base Excess VBG pH VBG pCO2 VBG pO2 VBG HCO3 VBG O2 Saturation VBG Base Excess Oxygen Given Sodium 140 Potassium 4.2 Chloride 104 Carbon Dioxide 20 L Anion Gap 20 BUN 18 H Creatinine 1.11 Estim Creat Clear Calc 74.5 Estimated GFR > 60 Random Glucose 161 H Lactic Acid Lactic Acid Fup @ 2Hr Calcium 8.8 Ferritin Total Bilirubin Direct Bilirubin AST ALT Alkaline Phosphatase Troponin I High Sens 1589.4 H D C-Reactive Protein B-Natriuretic Peptide Total Protein Albumin Triglycerides Cholesterol LDL Cholesterol, Calc HDL Cholesterol Lipase Procalcitonin COVID-19 ([facility]) COVID-19 [employer] Com 06/17/20 06/17/20 06/17/20 05:07 05:07 05:07 WBC 14.0 H RBC 4.80 Hgb 14.3 Hct 42.3 MCV 88.1 MCH 29.8 MCHC 33.8 RDW 13.1 Plt Count 281 MPV 10.4 Immature Gran % (Auto) 0.5 H Neut % (Auto) 89.9 H Lymph % (Auto) 6.8 L [place] % (Auto) 2.6 Eos % (Auto) 0.1 Baso % (Auto) 0.1 Lymph # (Auto) 1.0 L [place] # (Auto) 0.4 Eos # (Auto) 0.0 Baso # (Auto) 0.0 Abs Immat Gran (auto) 0.07 H Absolute Neuts (auto) 12.7 H Absolute Nucleated RBC 0.000 Nucleated RBC % (auto) 0.0 Smear Tech's Comments PT 12.6 INR 1.1 PTT (Heparin Protocol) D-Dimer < 200 ABG pH ABG pCO2 ABG pO2 ABG HCO3 ABG O2 Saturation ABG Base Excess VBG pH VBG pCO2 VBG pO2 VBG HCO3 VBG O2 Saturation VBG Base Excess Oxygen Given Sodium 139 Potassium 4.3 Chloride 105 Carbon Dioxide 22 Anion Gap 16 BUN 17 H Creatinine 0.88 Estim Creat Clear Calc 94.0 Estimated GFR > 60 Random Glucose 144 H Lactic Acid Lactic Acid Fup @ 2Hr Calcium 9.3 Ferritin 80 Total Bilirubin Direct Bilirubin AST ALT Alkaline Phosphatase Troponin I High Sens C-Reactive Protein 1.85 H B-Natriuretic Peptide Total Protein Albumin Triglycerides Cholesterol LDL Cholesterol, Calc HDL Cholesterol Lipase Procalcitonin COVID-19 ([facility]) COVID-19 Clin Com 06/17/20 06/17/20 06/17/20 05:07 05:07 05:07 WBC RBC Hgb Hct MCV MCH MCHC RDW Plt Count MPV Immature Gran % (Auto) Neut % (Auto) Lymph % (Auto) [place] % (Auto) Eos % (Auto) Baso % (Auto) Lymph # (Auto) [place] # (Auto) Eos # (Auto) Baso # (Auto) Abs Immat Gran (auto) Absolute Neuts (auto) Absolute Nucleated RBC Nucleated RBC % (auto) Smear Tech's Comments PT INR PTT (Heparin Protocol) D-Dimer ABG pH ABG pCO2 ABG pO2 ABG HCO3 ABG O2 Saturation ABG Base Excess VBG pH 7.39 VBG pCO2 38 VBG pO2 51 VBG HCO3 23 VBG O2 Saturation 87.5 VBG Base Excess -1.9 Oxygen Given Sodium Potassium Chloride Carbon Dioxide Anion Gap BUN Creatinine Estim Creat Clear Calc Estimated GFR Random Glucose Lactic Acid Lactic Acid Fup @ 2Hr Calcium Ferritin Total Bilirubin Direct Bilirubin AST ALT Alkaline Phosphatase Troponin I High Sens C-Reactive Protein B-Natriuretic Peptide Total Protein Albumin Triglycerides 44 Cholesterol 190 LDL Cholesterol, Calc 131 HDL Cholesterol 51 Lipase Procalcitonin 0.09 COVID-19 ([facility]) COVID-19 Clin Com 06/17/20 08:03 WBC RBC Hgb Hct MCV MCH MCHC RDW Plt Count MPV Immature Gran % (Auto) Neut % (Auto) Lymph % (Auto) [place] % (Auto) Eos % (Auto) Baso % (Auto) Lymph # (Auto) [place] # (Auto) Eos # (Auto) Baso # (Auto) Abs Immat Gran (auto) Absolute Neuts (auto) Absolute Nucleated RBC Nucleated RBC % (auto) Smear Tech's Comments PT INR PTT (Heparin Protocol) 61.1 D-Dimer ABG pH ABG pCO2 ABG pO2 ABG HCO3 ABG O2 Saturation ABG Base Excess VBG pH VBG pCO2 VBG pO2 VBG HCO3 VBG O2 Saturation VBG Base Excess Oxygen Given Sodium Potassium Chloride Carbon Dioxide Anion Gap BUN Creatinine Estim Creat Clear Calc Estimated GFR Random Glucose Lactic Acid Lactic Acid Fup @ 2Hr Calcium Ferritin Total Bilirubin Direct Bilirubin AST ALT Alkaline Phosphatase Troponin I High Sens C-Reactive Protein B-Natriuretic Peptide Total Protein Albumin Triglycerides Cholesterol LDL Cholesterol, Calc HDL Cholesterol Lipase Procalcitonin COVID-19 ([facility]) COVID-19 Clin Com Progress Note: A&P Time Spent With Patient Time: Total time spent is greater than 50% in coordination of care (as documented) at patient's floor/unit and/or counseling patient: Total time spent with greater than 50% in coordination of care (as documented) at patient's floor/unit and/or counseling patient:: 0
[2020-06-17] MEDS: LORazepam 1 MG TABLET 2 MG PO ×2 (11:37→15:56)
--- NOTE | 2020-06-17 14:03 | PM.EVENT ---
Event Note Date of Service: 06/17/20 Event Note: Chart reviewed, full consult to follow. Elevated troponin suggestive of NSTEMI. Most likely related secondary to respiratory issues. Continue anti coagulation for 48 hours. Aspirin and statins. Will require further cardiac work up in future
[2020-06-17] MEDS: cloNIDine HCL 0.1 MG TABLET PO (14:37)
[2020-06-17] MEDS: 0.9 % Sodium Chloride Flush 3 ML SYRINGE IVFLUSH (14:38)
[2020-06-17] MEDS: HYDROmorphone HCl 1 MG/ML SYRINGE IVPUSH (16:10)
--- NOTE | 2020-06-17 17:11 | PM.EVENT ---
Event Note Date of Service: 06/17/20 Event Note: AMA discharge: discharge diagnosis: acute hypoxic respiratory failure COPD exacerbation Opioid toxicity NSTEMI Hospital course: Patient was initially admitted to medical floor for COPD exacerbation, he then decompensated and was intubated briefly. He was successfully extubated. Course was complicated by NSTEMI. Patient was seen by Cardiology recommended anticoagulation for 48 hours and echocardiogram. However, patient decided to leave against medical advice. He fully understood his diagnosis and reason for needing to stay. He understands that leaving prematurely increases risk of adverse events including .
== END 2020-06-17 17:59 | disposition left against medical advice (07) | DRG 140 ==
LOC: HO.ED 19:29 → HO.IMC 06-17 00:54 → HO.ICU 06-17 01:21
PROVIDERS: Physician Assistant Medical; Admitting Provider Internal Medicine; Emergency Provider Emergency Medicine; Visit Provider Internal Medicine
DX: J44.1 Chronic obstructive pulmonary disease with (acute) exacerbation (principal); J96.01 Acute respiratory failure with hypoxia; I21.A1 Myocardial infarction type 2; J45.51 Severe persistent asthma with (acute) exacerbation; G47.00 Insomnia, unspecified; Z20.828 Contact with and (suspected) exposure to other viral communicable diseases; Z79.899 Other long term (current) drug therapy
CPT/HCPCS: 36415; 36600; 71045; 80048; 80061; 80076; 82728; 82803; 83605; 83690; 83880; 84145; 84484; 85025; 85027; 85379; 85610; 85730; 86140; 87040; 87635; 93005; 94003; 96361; 96365; 96375; 96376; 99285; J0330; J0456; J1170; J2250; J2270; J2405; J2920; J3010; J3475

== ENCOUNTER 2020-07-22 14:10 | Emergency (ER) | payer OTHER, SELFPAY ==
[2020-07-22 14:25] VITALS: BP 105/78; PULSE 103; RESP 22; TEMP 37; O2SAT 95; BMI 22.2
== END 2020-07-22 15:28 | disposition left against medical advice (07) ==
PROVIDERS: Emergency Provider Emergency Medicine; PCP Internal Medicine
DX: R06.02 Shortness of breath (principal)
CPT/HCPCS: 99282

== ENCOUNTER 2020-08-22 14:51 | Emergency (ER) | payer OTHER, SELFPAY ==
[2020-08-22 16:05] VITALS: BP 120/77; PULSE 57; RESP 18; TEMP 36.6; O2SAT 96
--- NOTE | 2020-08-22 16:29 | ED.SYNCOPE ---
HPI - Syncope General Stated Complaint: general weakness Time Seen by Provider: 08/22/20 15:43 Source: patient Mode of arrival: ambulatory Limitations: no limitations History of Present Illness HPI narrative: This is a 45-year-old male known to this facility from prior visits and in fact recent ICU stay for hypoxic respiratory failure who in addition has a history of asthma, COPD, insomnia, polysubstance abuse including opiates cocaine and PCP he states that he has decreased his use by ?80%? as he has been on methadone states he last used 2 days ago which was a combination of heroin and cocaine. He presents ambulatory via triage today with complaint of states for the past 4 days he is not sure why but he has been ?passing out? he describes episodes as fainting and sometimes he will be sitting down or standing up there is no correlation with any position or food intake or his IV drug use. He does report he is having some mild respiratory symptoms of cough but no where near his previous visits. He otherwise denies any chest pain or shortness of breath does report slight headache at times MD complaint: collapsed Onset (ago): day(s) -: second(s) Description of event: other (States there is no seizure-like activity) Prodromal symptoms: none Witnessed: No Context: other (States there is no correlation with him resting or doing activity when this episode happened) Injuries sustained associated with event: none Current symptoms: none Treatments prior to arrival: none Related Data Home Medications Medication Instructions Recorded Confirmed albuterol sulfate 1 amp INHALATION Q4-6H PRN 06/11/20 06/16/20 risperidone 1 tab PO BID 06/11/20 06/16/20 Previous Rx's Medication Instructions Recorded albuterol sulfate 2 puff PO Q6H PRN #1 g 06/11/20 clonidine HCl 1 tab PO TID PRN #30 tab 06/11/20 prednisone 50 mg PO DAILY #5 tab 06/11/20 Allergies Allergy/AdvReac Type Severity Reaction Status Date / Time No Known Allergies Allergy Verified 04/21/20 22:15 [No Known Allergies*] Review of Systems Review of Systems: Constitutional: No Weight loss, No Fever, No Chills, No Night Sweats, No Fatigue, No Malaise ENT/Mouth: No Hearing loss, No Ear Pain, No Nasal Congestion, No Sinus Pain, No Hoarseness, No sore throat, No Rhinorrhea, No Swallowing Difficulty Eyes: No Eye Pain, No Swelling, No Redness, No Foreign Body, No Discharge, No Vision Changes Cardiovascular: No Chest Pain, + SOB sometime , No Dyspnea on Exertion, No Orthopnea, No Edema, No Palpitations Respiratory: No Cough, No Sputum, No Wheezing, No Smoke Exposure, No Dyspnea Gastrointestinal: No Nausea, No Vomiting, No Diarrhea, No Constipation, No abdominal Pain, No Hematochezia, No Melena Genitourinary: no irregular bleeding, No Dysuria, No Urinary Frequency, No Hematuria, No Urinary Incontinence, No Urgency, No Flank Pain, No Urinary Flow Changes, No Hesitancy Musculoskeletal: No joint pain, No Myalgias, No Joint Swelling Skin: No Skin Lesions, No rash Neuro: No Weakness, No Numbness, No Paresthesias, No Loss of Consciousness, No Dizziness, as noted per HPI Psych: No Anxiety/Panic, No Depression, No SI/HI/AH/VH, No Social Issues Heme/Lymph: No Bruising, No Bleeding,No Lymphadenopathy Endocrine: No Polyuria, No Polydipsia, No Temperature Intolerance Yes all other systems are reviewed and are negative FOR[facility] Past Medical History Medical History (Updated 08/22/20 @ 16:44 by Jaron Campbell NP) Asthma COPD (chronic obstructive pulmonary disease) Insomnia Polysubstance abuse Respiratory failure Social History Social History Alcohol intake: never Smoking Status: Current every day smoker service: No Current occupational status: unemployed Physical Exam Vital Signs: Vital Signs: Last Vital Signs Temp 98 F 08/22/20 16:05 Pulse 57 08/22/20 16:05 Resp 18 08/22/20 16:05 BP 120/77 08/22/20 16:05 Pulse Ox 96 08/22/20 16:05 Reviewed Const: Other: Found patient is sitting up drinking water in no acute distress. He does have a sinking in facial features. General: No acute distress or intoxicated appearing Nutritional Appearance: thin Orientation/consciousness: patient oriented x3 HENMT: Head: Yes normal to inspection Ears: hearing grossly normal bilaterally Eyes: General: appearance normal, both eyes and all related structures Visual Bucio: normal visual bucio by confrontation Neck: Neck: Yes normal visual inspection, Yes full ROM, No positive Brudzinski's sign, No positive Kernig's sign and No tender Thyroid: Thyroid normal Chest: Chest palpation & inspection: normal inspection of the chest Resp: Effort & Inspection: normal respiratory effort Auscultation: clear to auscultation bilaterally Cardio: Jugular venous distension: no JVD Palpation: normal PMI Rate: regular rate Rhythm: regular rhythm Heart sounds: S1 normal heart sound present and S2 normal heart sound present GI: Inspection: Yes normal to inspection Palpation (GI): Soft to palpation Percussion: Yes normal to percussion Auscultation: normal bowel sounds : General: Yes no CVA tenderness Back/Spine/Pelvis: Back: no CVA tenderness Skin: General skin exam: no rashes or lesions noted Neuro: General: patient oriented x3 Extrem: General: Yes normal to inspection NIH Stroke Scale Internal: Initial- Upon Arrival Level of Consciousness: Alert Level of Consciousness Questions: Answers both questions correctly Level of Consciousness Commands: Performs both tasks correctly Best Gaze: Normal Visual: No visual loss Facial Palsy: Normal Motor Arm (Right): No drift Motor Arm (Left): No drift Motor Leg (Right): No drift Motor Leg (Left): No drift Limb Ataxia: Absent Sensory: Normal Best Language: No aphasia Dysarthia: Normal Extinction and Inattention: No abnormality Score: 0 Course Reevaluation(s) Reevaluation #1: Directly upon my arrival IA examined patient and reviewed plan of care with him he was agreeable however after of left bedside and 5 minutes later the nurse went to the room to do blood work and status IV line he stated that he does not feel like waiting and would like to leave. I subsequently went over to bedside directly after being informed that patient was refusing workup he states that he changes mind does not really feel that he wants to be here and would like something to eat and will leave. I reviewed his medical history as well as the differential diagnosis with him in detail however he seem more preoccupied on his phone and demanding something to eat and leave. I did grab him at water and some food however by the time I return from the Fridge within a matter of a minute patient had gotten up and was in the process of as doing the double doors of the emergency room. MDM - Syncope MDM Narrative Medical decision making narrative: Interview 45-year-old male with history of insomnia, asthma, COPD does not use home oxygen with history of polysubstance abuse who states he intermittently uses opiates cocaine and is on methadone last used 2 days presenting with vague atypical episodes of syncope that has been occurring for the past 4 days or so and has had total of 4 episodes which are described as ?passing out but there is no associated prodromal symptoms or seizure-like activity. On exam he has no focal neurological deficits, does report vague cough and shortness of breath does report that his mother last week was test positive COVID-19. Given his extensive history and complaint workup will be pursued accordingly including EKG, cardiac enzymes, head CT, labs and will check orthostatic vital signs. Differential diagnosis include but not limited to vasovagal syncope, syncope due to orthostatic hypertension, arrhythmia, PE, dehydration, seizure, electrolyte derangement, substance abuse related. Medical Records Attestation: I reviewed the patient's medical records. Medical records narrative: ICU admission/summary reviewed from 06/17/2020 Lab Data Attestation: I reviewed the patient's lab results. Discharge Plan Discharge Clinical Impression: Syncope Patient Disposition: Elopement Prescriptions: No Action albuterol sulfate 2.5 mg /3 mL (0.083 %) solution for nebulization 1 amp inhalation Q4-6H PRN (Reason: wheezing) RF: 0 risperidone 1 mg tablet 1 tab PO BID RF: 0 prednisone 50 mg tablet 50 mg PO DAILY Qty: 5 RF: 0 albuterol sulfate 90 mcg/actuation HFA aerosol inhaler 2 puff PO Q6H PRN (Reason: wheezing) Qty: 1 RF: 0 clonidine HCl 0.1 mg tablet 1 tab PO TID PRN (Reason: Anxiety) Qty: 30 RF: 0
== END 2020-08-22 16:54 | disposition left against medical advice (07) ==
PROVIDERS: Emergency Provider Emergency Medicine; PCP Internal Medicine
DX: R55 Syncope and collapse (principal); R53.1 Weakness; F11.20 Opioid dependence, uncomplicated; F19.10 Other psychoactive substance abuse, uncomplicated; J44.9 Chronic obstructive pulmonary disease, unspecified
CPT/HCPCS: 96360; 99281; 99284

== ENCOUNTER 2021-07-21 20:24 | Inpatient (IN) | payer OTHER, SELFPAY ==
--- NOTE | 2021-07-21 | ECG_ITS ---
Test Reason : MEDICAL CLEARANCE Blood Pressure : / mmHG Vent. Rate : 069 BPM Atrial Rate : 069 BPM P-R Int : 172 ms QRS Dur : 074 ms QT Int : 424 ms P-R-T Axes : 035 038 043 degrees QTc Int : 454 ms Normal sinus rhythm Normal ECG When compared with ECG of 17-JUN-2020 11:43, Criteria for Septal infarct are no longer Present T wave amplitude has increased in Lateral leads Referred By: Jane Sena Electronically Signed By:LILY ABEL MD
[2021-07-21 20:37] VITALS: BMI 22.2
[2021-07-21 20:40] VITALS: BP 119/91; PULSE 86; RESP 14; TEMP 36.6; O2SAT 95
--- NOTE | 2021-07-21 21:34 | ED_ITS ---
HPI - General Adult General Chief complaint: General Medical Stated complaint: hasnt taken meds in 3 days unable to sleep Time Seen by Provider: 07/21/21 21:22 Source: patient Mode of arrival: ambulatory Limitations: no limitations History of Present Illness HPI narrative: Patient is a 46 year old male presenting to the emergency department today requesting more of his medication. Patient states that he needs more of his Seroquil and Clonidine. Patient states that he called his psychiatrist, and his psychiatrist attempted to send in refills however, his insurance declined it due to the patient having too many refills of these medications within a short amount of time. Patient states that if he does not get his medications, immediately, he is going to leave here and kill himself. Patient denies any dizziness, lightheadedness, abdominal pain, nausea, vomiting, fever, chills, blurry vision, double vision, loss of vision, chest pain, difficulty breathing, shortness of breath, back pain, night sweats, pain with urination, increased urinary frequency, increased urinary urgency, blood in his urine or stool, syncope or a near syncopal episode, recent trauma or falls, bowel incontinence, bladder incontinence, bowel retention, bladder retention, or any other complaints at this time. Patient denies any homicidal ideation. Onset (ago): day(s) Relieving factors: none Exacerbating factors: none Associated symptoms: denies other symptoms Treatments prior to arrival: none Related Data Home Medications Medication Instructions Recorded Confirmed risperidone 1 mg tablet 1 tab PO BID 06/11/20 07/21/21 ipratropium 20 mcg-albuterol 1 puff PO QID PRN 07/21/21 07/21/21 100 mcg/actuation mist for inhalation (Combivent Respimat) quetiapine 100 mg tablet 1 - 2 tab PO BEDTIME PRN 07/21/21 07/21/21 trazodone 100 mg tablet 1 tab PO BEDTIME 07/21/21 07/21/21 Previous Rx's Medication Instructions Recorded clonidine HCl 0.1 mg tablet 1 tab PO TID PRN #30 tab 06/11/20 Allergies Allergy/AdvReac Type Severity Reaction Status Date / Time No Known Allergies Allergy Verified 07/21/21 20:40 [No Known Allergies*] Review of Systems Verdana 4l Constitutional: Verdana 4d Verdana 4d Constitutional: Verdana 4d Reports no additional constitutional complaints, Denies chills, Denies fever(s) and Denies night sweats Verdana 4l Eyes: Verdana 4d Verdana 4d Eyes: Verdana 4d Reports no additional eye complaints, Denies blurry vision, Denies change in vision, Denies diplopia, Denies eye discharge, Denies loss of vision and Denies eye pain Verdana 4l ENT: Verdana 4d Denies dizziness Verdana 4l Cardiovascular: Verdana 4d Verdana 4d Cardiovascular: Verdana 4d Reports no additional cardiovascular complaints, Denies chest pain, Denies lightheadedness, Denies Loss of Consciousness and Denies dyspnea Verdana 4l Respiratory: Verdana 4d Verdana 4d Respiratory: Verdana 4d Reports no additional respiratory complaints and Denies dyspnea Verdana 4l Gastrointestinal: Verdana 4d Verdana 4d Gastrointestinal: Verdana 4d Reports no additional gastrointestinal complaints, Denies abdominal pain, Denies melena, Denies hematochezia, Denies change in bowel habits and Denies change in stool character Verdana 4l Genitourinary: Verdana 4d Verdana 4d Genitourinary: Verdana 4d Reports no additional male genitourinary complaints, Denies hematuria, Denies oliguria, Denies difficulty urinating, Denies dysuria, Denies urinary frequency, Denies urinary hesitancy, Denies urinary incontinenceincontinence and Denies urinary urgency Musculoskeletal: Musculoskeletal: Reports no additional musculoskeletal complaints, Denies numbness and Denies tingling Neurologic: Denies dizziness, Denies loss of vision, Denies numbness and Denies tingling Psychiatric: Psychiatric: Reports hopelessness and Reports suicidal ideation Endocrine: Endocrine: Reports no additional endocrine complaints Hematologic/Lymphatic: Hematologic/Lymphatic: Reports no additional hematologic/lymphatic complaints Allergic/Immunologic: Allergic/Immunologic: Reports no additional allergic/immunologic complaints PMFSH Past Medical History Attestation statement: The following information was validated with the patient. 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 [employer] New 4d Temp 97.9 F 07/21/21 20:40 Manager [employer] New 4d Pulse 86 07/21/21 20:40 Manager [employer] New 4d Resp 14 07/21/21 20:40 BP 119/91 H 07/21/21 20:40 Pulse Ox 95 07/21/21 20:40 BMI result Body Mass Index 22.2 Const: General: cooperative, no acute distress, alert and awake Nutritional Appearance: well nourished Orientation/consciousness: patient oriented x3 Limitations: no limitations HENMT: Head: Yes normal to inspection and Yes atraumatic Ears: hearing grossly normal bilaterally and external ears normal General nose exam: Normal ext ernal nose present, no nasal discharge noted and no epistaxis Face and sinus: Yes normal facial exam, No abrasion and No laceration Mouth: Normal oral and palatal mucosa present, no drooling and no muffled voice Eyes: General: appearance normal, both eyes and all related structures Periorbital: periorbital findings normal Eyelids: Yes eyelids normal Conjunctivae: conjunctivae normal Pupils: Equal, round and reactive pupils present EOM: EOMs intact bilaterally Neck: Neck: Yes normal visual inspection, Yes full ROM and Yes no lymphadenopathy Chest: Chest palpation & inspection: normal inspection of the chest Resp: Effort & Inspection: normal respiratory effort and able to speak in complete sentences Auscultation: clear to auscultation bilaterally Cardio: Rate: regular rate Rhythm: regular rhythm GI: Inspection: Yes normal to inspection Neuro: General: patient oriented x3 and moves all extremities Cranial nerves: Yes Equal, round and reactive pupils present Cognition (Neuro): normal cognition Motor exam (neuro): 5/5 motor strength present throughout Sensory Exam: Normal double simultaneous stimulation for sensation Coordination: [id number] test normal Extrem: General: Yes normal to inspection, Yes full ROM and Yes capillary refill normal Psych: Appearance: grossly normal Mental Status: mental status grossly normal Affect: Animated affect present and Hostile affect present Attitude: Belligerent attititude/behavior present Thought process: Normal thought process present Thought content: Suicidality present Medical Decision Making MDM Narrative Medical decision making narrative: Patient is a 46 year old male presenting to the emergency department today with suicidal ideation secondary to not being able to fill his prescriptions. Patient's physical exam was unremarkable. Patient's blood work was unremarkable. Patient's urine showed no acute process. Patient's urine drug screen was positive for multiple substances. Patient's EKG was unremarkable. I explained my physical exam findings as well as all test results to the patient. I answered all questions asked by the patient. Patient is currently in the behavioral health pod awaiting evaluation by the [facility] team. Differential Diagnosis Differential Diagnosis: suicideal ideation, medication refill, medical examination Medical Records Medical records reviewed: Yes I reviewed the patient's medical records. Lab Data Lab results reviewed: Yes I reviewed the patient's lab results. Result diagrams: 07/21/21 22:28 07/21/21 22:28 Labs: Lab Results 07/21/21 07/21/21 07/21/21 Range/Units 22:03 22:28 22:28 WBC (4.8-10.8) X10*3/uL RBC (4.60-5.80) X10*6/uL Hgb (14.0-18.0) g/dl Hct (42.0-52.0) % MCV (80.0-98.0) fL MCH (27.0-33.0) pg MCHC (31.0-36.0) g/dl RDW (11.0-16.0) % Plt Count (160-400) X10*3/uL MPV (9.4-12.4) fL Immature Gran % (0.0-0.4) % (Auto) Neut % (Auto) (45-73) % Lymph % (Auto) (20-40) % Aiken % (Auto) (2-11) % Eos % (Auto) (0-4) % Baso % (Auto) (0-2) % Lymph # (Auto) (1.2-4.9) X10*3/uL Aiken # (Auto) (0.1-1.2) X10*3/uL Eos # (Auto) (0.0-0.4) X10*3/uL Baso # (Auto) (0.0-0.2) X10*3/uL Abs Immat Gran (0.00-0.03) (auto) X10*3/uL Absolute Neuts (2.0-8.3) (auto) x10*3/uL Absolute Nucleated (0.0-0.012) RBC X10*3/uL Nucleated RBC % (0.0-0.2) /100WBC (auto) Sodium (135-145) mmol/L Potassium (3.3-5.1) mmol/L Chloride (96-108) mmol/L Carbon Dioxide (22-29) mmol/L Anion Gap (12-20) BUN (9-16) mg/dL Creatinine (0.5-1.4) mg/dL Estim Creat Clear Calc Estimated GFR Random Glucose (60-115) mg/dL Calcium (8.4-10.2) mg/dL Urine Color YELLOW Urine Appearance CLEAR Urine pH 6.0 (5.0-8.0) Ur Specific Woodward >= 1.030 H (1.005-1.025) Urine Protein TRACE (NEG-TRACE) MG/DL Urine Glucose (UA) NEG (NEG) MG/DL Urine Ketones 5 (NEG) MG/DL Urine Blood NEG (NEG) Urine Nitrite NEG (NEG) Ur Leukocyte NEG (NEG) Esterase Urine Opiates Screen POSITIVE H (Not Detect) Urine Fentanyl POSITIVE H (Not Detect) Screen Ur Barbiturates Not Detected (Not Detect) Screen Ur Phencyclidine Not Detected (Not Detect) Scrn Ur Amphetamines POSITIVE H (Not Detect) Screen U Benzodiazepines Not Detected (Not Detect) Scrn Urine Cocaine Screen POSITIVE H (Not Detect) U Marijuana (THC) Not Detected (Not Detect) Screen COVID-19 ([facility]) Negative (Negative) COVID-19 Clin Com See Note 07/21/21 07/21/21 Range/Units 22:28 22:28 WBC 5.0 (4.8-10.8) X10*3/uL RBC 4.73 (4.60-5.80) X10*6/uL Hgb 13.9 L (14.0-18.0) g/dl Hct 42.0 (42.0-52.0) % MCV 88.8 (80.0-98.0) fL MCH 29.4 (27.0-33.0) pg MCHC 33.1 (31.0-36.0) g/dl RDW 14.1 (11.0-16.0) % Plt Count 322 (160-400) X10*3/uL MPV 10.4 (9.4-12.4) fL Immature Gran % (Auto) 0.2 (0.0-0.4) % Neut % (Auto) 43.4 L (45-73) % Lymph % (Auto) 43.0 H (20-40) % Aiken % (Auto) 9.4 (2-11) % Eos % (Auto) 3.6 (0-4) % Baso % (Auto) 0.4 (0-2) % Lymph # (Auto) 2.2 (1.2-4.9) X10*3/uL Aiken # (Auto) 0.5 (0.1-1.2) X10*3/uL Eos # (Auto) 0.2 (0.0-0.4) X10*3/uL Baso # (Auto) 0.0 (0.0-0.2) X10*3/uL Abs Immat Gran (auto) 0.01 (0.00-0.03) X10*3/uL Absolute Neuts (auto) 2.2 (2.0-8.3) x10*3/uL Absolute Nucleated RBC 0.000 (0.0-0.012) X10*3/uL Nucleated RBC % (auto) 0.0 (0.0-0.2) /100WBC Sodium 140 (135-145) mmol/L Potassium 3.7 (3.3-5.1) mmol/L Chloride 103 (96-108) mmol/L Carbon Dioxide 27 (22-29) mmol/L Anion Gap 14 (12-20) BUN 13 (9-16) mg/dL Creatinine 1.09 (0.5-1.4) mg/dL Estim Creat Clear Calc 82.4 Estimated GFR > 60 Random Glucose 98 (60-115) mg/dL Calcium 9.8 (8.4-10.2) mg/dL Urine Color Urine Appearance Urine pH (5.0-8.0) Ur Specific Woodward (1.005-1.025) Urine Protein (NEG-TRACE) MG/DL Urine Glucose (UA) (NEG) MG/DL Urine Ketones (NEG) MG/DL Urine Blood (NEG) Urine Nitrite (NEG) Ur Leukocyte Esterase (NEG) Urine Opiates Screen (Not Detect) Urine Fentanyl Screen (Not Detect) Ur Barbiturates Screen (Not Detect) Ur Phencyclidine Scrn (Not Detect) Ur Amphetamines Screen (Not Detect) U Benzodiazepines Scrn (Not Detect) Urine Cocaine Screen (Not Detect) U Marijuana (THC) Screen (Not Detect) COVID-19 ([facility]) (Negative) COVID-19 Clin Com Discharge Plan Discharge Clinical Impression: Polysubstance abuse, Suicidal ideation Patient Disposition: Still a Patient Prescriptions: No Action risperidone 1 mg tablet 1 tab PO BID 0RF clonidine HCl 0.1 mg tablet 1 tab PO TID PRN (Reason: Anxiety) Qty: 30 0RF quetiapine 100 mg tablet 1 - 2 tab PO BEDTIME PRN (Reason: insomnia) 0RF trazodone 100 mg tablet 1 tab PO BEDTIME 0RF Combivent Respimat 20-100 mcg/actuation mist 1 puff PO QID PRN (Reason: wheezing) 0RF
--- NOTE | 2021-07-21 22:03 | PC.NURSE ---
covid swab done. pt transported to pod.
[2021-07-21 22:38] LABS: COVID-19 Test Negative (Negative)
[2021-07-21 22:43] LABS: MANUAL DIFF FLAG NO
[2021-07-21 22:47] LABS: Appearance Urine CLEAR; Color Urine YELLOW; Glucose Urine UA NEG (NEG); Leukocyte Esterase Urine NEG (NEG); Nitrite Urine NEG (NEG); Specific Gravity - Urine >= 1.030 (1.005-1.025); Urine Blood NEG (NEG); Urine Ketones 5 MG/DL (NEG); Urine Protein TRACE MG/DL (NEG-TRACE)
[2021-07-21 22:48] LABS: Basophils Percent Auto 0.4 % (0-2); Eosinophils Absolute Auto 0.2 X10*3/uL (0.0-0.4); Eosinophils Percent Auto 3.6 % (0-4); Hemoglobin 13.9 g/dl (14.0-18.0); Imm Gran Abs Auto 0.01 X10*3/uL (0.00-0.03); Imm Gran Pct Auto 0.2 % (0.0-0.4); Lymphocytes Absolute Auto 2.2 X10*3/uL (1.2-4.9); Mean Corpuscular HGB Conc 33.1 g/dl (31.0-36.0); Mean Corpuscular Hemoglobin 29.4 pg (27.0-33.0); Mean Corpuscular Volume 88.8 fL (80.0-98.0); Mean Platelet Volume 10.4 fL (9.4-12.4); Monocytes Absolute Auto 0.5 X10*3/uL (0.1-1.2); Monocytes Percent Auto 9.4 % (2-11); Neutrophils Absolute Auto 2.2 x10*3/uL (2.0-8.3); Neutrophils Percent Auto 43.4 % (45-73); Platelet Count 322 X10*3/uL (160-400); Red Blood Count 4.73 X10*6/uL (4.60-5.80); Red Cell Distribution Width 14.1 % (11.0-16.0)
[2021-07-21 22:59] LABS: Amphetamine Screen Urine POSITIVE (Not Detect); Barbiturates, Urine Not Detected (Not Detect); Benzodiazepines Screen Urine Not Detected (Not Detect); Cannabinoid Screen Urine Not Detected (Not Detect); Cocaine Screen Urine POSITIVE (Not Detect); Fentanyl, urine POSITIVE (Not Detect); Opiate Screen Urine POSITIVE (Not Detect); Phencyclidine Screen Urine Not Detected (Not Detect)
[2021-07-21 23:00] LABS: Anion Gap 14 (12-20); Blood Urea Nitrogen 13 mg/dL (9-16); Calcium 9.8 mg/dL (8.4-10.2); Carbon Dioxide 27 mmol/L (22-29); Chloride 103 mmol/L (96-108); Creatinine Clr Calc Pharmacy 82.4; Estimated Glomerular Filt Rate > 60; Glucose Random 98 mg/dL (60-115); Potassium 3.7 mmol/L (3.3-5.1); Sodium 140 mmol/L (135-145)
[2021-07-21] MEDS: QUEtiapine Fumarate 100 MG TABLET PO (23:34)
[2021-07-21] MEDS: traZODone HCL 100 MG TABLET PO (23:34)
--- NOTE | 2021-07-22 06:06 | PC.NURSE ---
Patient slept through the night, no distress observed/reported, [facility] referral completed/confirmed/pending evaluation in the morning, VSS, medication compliant, behavior appropriate, will continue to monitor.
--- NOTE | 2021-07-22 07:02 | PC.NURSE ---
patient appears to remain asleep at present respirations are even and unlabored, patient appears in no distress
[2021-07-22 09:08] VITALS: BP 116/72; PULSE 76; TEMP 35.7; O2SAT 92
--- NOTE | 2021-07-22 12:59 | PC.NURSE ---
awaiting feedback from clients family, client was given take home dose. if patient is to be placed inpatient, patient could bring storm dose intact back to clinic and accompany this with dc paperwork from this or other inpatient facility. will notify clinic by fax of the plan, and if patient remains in pod t/w could notify clinic tomorrow as well.
[2021-07-22] MEDS: risperiDONE 1 MG TABLET PO (13:08)
[2021-07-22] MEDS: methADONE HCl 20 MG/2 ML ORAL.CONC 145 MG PO (14:29)
[2021-07-22] MEDS: hydrOXYzine HCL 50 MG TABLET PO (18:50)
--- NOTE | 2021-07-22 20:41 | PC.NURSE ---
Resting comfortably in bed no c/o at this time aware of possibility to go inpatient will continue to monitor.
[2021-07-22 21:53] VITALS: BP 113/81; PULSE 77; RESP 18; O2SAT 96
[2021-07-22] MEDS: QUEtiapine Fumarate 100 MG TABLET PO (21:54)
[2021-07-23 02:13] VITALS: BP 103/74; PULSE 85; RESP 17; TEMP 36.8; O2SAT 95
--- NOTE | 2021-07-23 07:30 | PC.NURSE ---
patient appears to remain asleep respirations are even and unlabored, patient appears in no distress. t/w spoke to clients methadone clinic and spoke to xavi SALDIVAR there reiterating the plan for the client to return there with intact storm bottle /take home dose when he retruns to clinic
[2021-07-23 10:11] VITALS: BP 101/72; PULSE 70; TEMP 35.6; O2SAT 93
[2021-07-23] MEDS: risperiDONE 1 MG TABLET PO ×2 (10:22→21:17)
[2021-07-23] MEDS: methADONE HCl 20 MG/2 ML ORAL.CONC 145 MG PO (10:22)
[2021-07-23] MEDS: Acetaminophen 325 MG TABLET 650 MG PO (10:22)
--- NOTE | 2021-07-23 10:29 | PC.NURSE ---
patient requested a dn received tylenol per his request, updated patient that i would relay info should he get a bed somewhere
[2021-07-23 11:53] LABS: COVID-19 Test Negative (Negative)
[2021-07-23] MEDS: cloNIDine HCL 0.1 MG TABLET PO ×2 (15:28→18:23)
[2021-07-23 18:00] VITALS: BP 110/81; PULSE 108; TEMP 36.4
--- NOTE | 2021-07-23 19:35 | PC.ADMIT ---
Gelacio is a 46-year-old male who was transferred from the POD to via wheelchair. Pt self-presented [place] the [facility] [place] and reported that he ran out of his medications but his insurance would not fill them until 08/01/21. Pt denied taking more than prescribed. When ED provider told him they were unable to fill his medications, he said he was going to kill himself as a result. During this admission assessment, pt was pleasant, cooperative and appropriate. He appeared anxious, occasionally avoided eye contact, and was rocking back and forth in his chair. Pt denies SI at this time. He said when I couldn't get my medications, I felt like I didn't know how to survive and that's why I said those things. I feel really anxious right now but now that I'm taking my meds I don't have those thoughts anymore. Pt denies alcohol use but endorses use of heroin and cocaine. Tox screen was positive for opiates, fentanyl, amphetamines, and cocaine. Pt reports he's been sleeping poorly and frequently wakes up throughout the night. Pt also states he has difficulty chewing/swallowing which has contributed to his weight loss and inability to gain weight.
--- NOTE | 2021-07-23 19:38 | PC.NURSE ---
Pt denied flu vaccine, stated he's already been immunized this season
[2021-07-23] MEDS: hydrOXYzine HCL 25 MG TABLET PO (21:17)
[2021-07-23] MEDS: traZODone HCL 100 MG TABLET PO (21:17)
[2021-07-23] MEDS: QUEtiapine Fumarate 100 MG TABLET PO (21:18)
--- NOTE | 2021-07-24 | ECG_ITS ---
Test Reason : check qtc Blood Pressure : / mmHG Vent. Rate : 089 BPM Atrial Rate : 089 BPM P-R Int : 156 ms QRS Dur : 070 ms QT Int : 372 ms P-R-T Axes : 055 052 064 degrees QTc Int : 452 ms Poor data quality, interpretation may be adversely affected Normal sinus rhythm Normal ECG When compared with ECG of 21-JUL-2021 22:54, No significant change was found Referred By: Dean Valverde Electronically Signed By:MARCELO HAWKINS
[2021-07-24 08:30] VITALS: BP 139/86; PULSE 61; TEMP 37
[2021-07-24 09:17] LABS: Estimated Average Glucose 97 mg/dL
[2021-07-24] MEDS: risperiDONE 1 MG TABLET PO ×2 (09:27→20:23)
[2021-07-24] MEDS: methADONE HCl 20 MG/2 ML ORAL.CONC 145 MG PO (09:28)
[2021-07-24 09:29] LABS: Cholesterol 196 mg/dL; HDL Cholesterol 34 mg/dL; LDL Cholesterol Calculated 129 mg/dl; Triglycerides 169 mg/dL
[2021-07-24 09:50] LABS: Free T4 (Free Thyroxine) 0.98 ng/dL (0.71-1.85)
[2021-07-24 10:08] LABS: Folate 12.4 ng/mL (> or = 4.0); Vitamin B12 615 pg/mL (200-900)
[2021-07-24] MEDS: cloNIDine HCL 0.1 MG TABLET PO ×2 (10:17→16:15)
--- NOTE | 2021-07-24 10:31 | P.HPPS_ITS ---
HPI Date of Service: 07/24/21 Chief Complaint: Suicidal ideation Sources of Information: patient interviewed, chart reviewed and crisis/core team assessment reviewed HPI Subjective Notes: Conditional Voluntary Narrative: Mr. Vasquez is a 46 year-old male with hx of MDD, opioid and cocaine use disorder who self presented [place] [facility] [place] reporting increased depressed mood, SI without plan in context of running out of medication including seroquel, clonidine, risperidone. In the ED his utox was positive for fentanyl, cocaine, opioid. Pt is on methadone maintance for opioid use disorder. On the unit, pt reports he was doing fairly fine, living with his mother. He reports he was out of his medications and became depressed. He endorses depres sed mood, anhedonia, hopeless/helpless. He currently denies suicidal or homicidal ideation. He reports feeling anxious. He denies VH/AH. He does not appear internally preoccupied. He reports he has heard voices in the past about one month ago. He denies any other triggers. When asked about substance use, pt reports that's not a problem at all, I don't use regularly. Past Psychiatric History: Inpatient: 03/2019- M5 02/2019- M5 02/2018- M5 04/2006- [facility] OP: Dr. Sanya Vazquez [facility]; therapist Dmitriy Past medication trials: seroquel, risperidone, clonidine Medical Evaluation Reviewed: Yes [facility] Medical History Asthma COPD (chronic obstructive pulmonary disease) Insomnia Mental health problem Polysubstance abuse Respiratory failure Family History: denies Social History: lives with mother. Completed GED. Currently not working on [employer]. Per records, he has 7 children but not close to them. Substance History: Opioids: use since he was in 20's, using 2 bags Cocaine: use since he was in 20's, few grams Alcohol: denies Trauma History: denies Diagnostics Vital Signs (24Hr): Vital Signs - 24 hr 07/23/21 18:00 Temperature 97.6 F Pulse Rate 108 H Blood Pressure 110/81 BMI result Verdana 4 Body Mass Index Verdana 4 22.2 Verdana 4 Verdana 4 Labs Results: 07/21/21 22:28 07/21/21 22:28 Labs: Laboratory Results - last 48 hr 0107/24/21 07/24/21 11:32 08:36 08:36 Estimat Average Glucose 97 Hemoglobin A1c % 5.0 Triglycerides 169 Cholesterol 196 LDL Cholesterol, Calc 129 HDL Cholesterol 34 D Vitamin B12 Folate TSH 2.70 Free T4 0.98 COVID-19 ([facility]) Negative COVID-19 Clin Com See Note 07/24/21 08:36 Estimat Average Glucose Hemoglobin A1c % Triglycerides Cholesterol LDL Cholesterol, Calc HDL Cholesterol Vitamin B12 615 Folate 12.4 TSH Free T4 COVID-19 ([facility]) COVID-19 Clin Com Meds/Allergies Meds Home Medications Acetaminophen (Acetaminophen 325 Mg Tablet) 650 mg PO Q6H PRN PRN Reason: Headache/Pain Mild Scale (1-3) Al Hydroxide/Mg Hydroxide (Magnesium Hydrox/Alum Hydrox 30 Ml Oral.Susp) 30 ml PO Q6H PRN PRN Reason: Heartburn/Nausea Albuterol/Ipratropium (Albuterol/Iprat 2.5/0.5mg 3 Ml Ampul.Neb) 3 ml INHALE QID PRN PRN Reason: wheezing Clonidine HCl (Clonidine Hcl 0.1 Mg Tablet) 0.1 mg PO TID PRN; Protocol PRN Reason: Anxiety Last Admin: 07/24/21 10:17 Dose: 0.1 mg Documented by: Hydroxyzine HCl (Hydroxyzine Hcl 25 Mg Tablet) 25 mg PO BEDTIME PRN PRN Reason: Anxiety Last Admin: 07/23/21 21:17 Dose: 25 mg Documented by: Magnesium Hydroxide (Milk Of Magnesia 30 Ml Oral.Susp) 30 ml PO DAILY PRN PRN Reason: Constipation Methadone HCl (Methadone Hcl 20 Mg/2 Ml Oral.Conc) 145 mg PO DAILY [facility] Last Admin: 07/24/21 09:28 Dose: 145 mg Documented by: Nicotine (Nicotine 21 Mg Patch.Td24) 21 mg TRANSDERMA DAILY [facility] Last Admin: 07/24/21 10:18 Dose: Not Given Documented by: Nicotine Polacrilex (Nicotine Polacrilex 2 Mg Gum) 2 mg BUCCAL Q2H PRN PRN Reason: Nicotine Cravings Quetiapine Fumarate (Quetiapine Fumarate 100 Mg Tablet) 100 - 200 mg PO BEDTIME PRN PRN Reason: insomnia Last Admin: 07/23/21 21:18 Dose: 200 mg Documented by: Risperidone (Risperidone 1 Mg Tablet) 1 mg PO BID [facility] Last Admin: 07/24/21 09:27 Dose: 1 mg Documented by: Trazodone HCl (Trazodone Hcl 100 Mg Tablet) 100 mg PO BEDTIME [facility] Last Admin: 07/23/21 21:17 Dose: 100 mg Documented by: Trazodone HCl (Trazodone Hcl 50 Mg Tablet) 50 mg PO BEDTIME PRN PRN Reason: Insomnia Allergies Allergies Allergy/AdvReac Type Severity Reaction Status Date / Time No Known Allergies Allergy Verified 07/21/21 20:40 [No Known Allergies*] Mental Status Exam Mental Status Exam Narrative: Appearance: edentulous, casually groomed, fair hygiene in NAD Behavior:calm psychomotor: no agitation or retardation noted Speech:clear, normal rate/rhythm, volume, spontaneous Thought process:linear Thought content:no signs of psychosis, looking forward to return to mother's house, get back on medications Mood: could be better Affect: constricted SI:passive HI:denies VH/AH:denies Delusions:none Insight/judgment:poor x 2. Memory/cog: alert, oriented x 4. grossly intact to conversational testing. Assessment & Plan Assessment & Plan (1) MDD (major depressive disorder), recurrent episode, moderate: Status: Acute Code(s): F33.1 - Major depressive disorder, recurrent, moderate (2) Opioid use disorder, moderate, dependence: Status: Acute Code(s): F11.20 - Opioid dependence, uncomplicated (3) Cocaine use disorder, moderate, dependence: Status: Acute Code(s): F14.20 - Cocaine dependence, uncomplicated Plan Mr. Cuellar is a 46 year-old male with hx of MDD versus Bipolar Disorder and opioid (onmethadone) and cocaine use disorder who self presented [place] [facility] [place] reporting increase depression, hopeless, passive SI in context of not taking risperidone, seroquel for past 3 days. Pt denies VH/AH. We discussed risks, benefits and alternative treatment options. PLAN 1. Admit to M5, CV, 15 minutes checks for safety 2. continue current medications, will add seroquel prn as pt reports helpful for anxiety 3. obtain collateral information 4. Aftercare planning. Patient educated on: diagnosis, medication risk/benefits and substance abuse Informed Consent: understands Reason for continued inpatient stay Substantial Risk for: harm to self
--- NOTE | 2021-07-24 16:08 | MHC.CLN ---
NUTRITION CONSULT FOR DIFFICULTY SWALLOWING AND DIFFICULTY GAINING WEIGHT. OFFERED PATIENT CHOPPED DIET AND REFUSED. HE STATED THAT HE CAN CHOOSE HIS OWN FOODS THAT ARE SOFTER. WILL TAKE ENSURE SUPPLEMENT AND WOULD LIKE TID. ORDER PLACED FOR ENSURE TID TO PROVIDE 1050 KCAL, 60 G PROTEIN.
[2021-07-24] MEDS: Acetaminophen 325 MG TABLET 650 MG PO (16:15)
[2021-07-24] MEDS: QUEtiapine Fumarate 50 MG TABLET PO (16:16)
[2021-07-24 18:12] VITALS: BP 97/64; PULSE 73; RESP 18; TEMP 37; O2SAT 97
[2021-07-24] MEDS: traZODone HCL 100 MG TABLET PO (20:23)
[2021-07-24] MEDS: QUEtiapine Fumarate 200 MG TABLET PO (20:23)
[2021-07-25 06:10] VITALS: BP 93/59; PULSE 70; RESP 15; TEMP 36.9; O2SAT 95
[2021-07-25] MEDS: risperiDONE 1 MG TABLET PO ×2 (09:14→20:38)
[2021-07-25] MEDS: methADONE HCl 20 MG/2 ML ORAL.CONC 145 MG PO (09:14)
[2021-07-25] MEDS: cloNIDine HCL 0.1 MG TABLET PO (11:19)
[2021-07-25] MEDS: Acetaminophen 325 MG TABLET 650 MG PO ×2 (11:19→17:23)
[2021-07-25] MEDS: Nicotine Polacrilex 2 MG GUM BUCCAL (11:22)
--- NOTE | 2021-07-25 11:26 | P.PNPSI_ITS ---
Subjective Subjective Date of Service: 07/25/21 Reason For Visit: Suicidal ideation Subjective Notes: Conditional Voluntary Interim History: Pt reports less depressed mood, he reports poor sleep but improved appetite. He denies AH/VH, does not appear internally preoccupied. No SI/HI. Hopes to go back home to his mother soon. Per nursing, mostly in his room, no behavioral concerns. encouraged to attend groups. Medication Compliance: Yes Side effects from medications: No Attending Groups: No Review of Systems Constitutional: Reports no additional constitutional complaints, Denies chills, Denies fever(s) and Denies night sweats Eyes: Reports no additional eye complaints, Denies blurry vision, Denies change in vision, Denies diplopia, Denies eye discharge, Denies loss of vision and Denies eye pain Denies dizziness Cardiovascular: Reports no additional cardiovascular complaints, Denies chest pain, Denies lightheadedness, Denies Loss of Consciousness and Denies dyspnea Respiratory: Reports no additional respiratory complaints and Denies dyspnea Gastrointestinal: Reports no additional gastrointestinal complaints, Denies abd ominal pain, Denies melena, Denies hematochezia, Denies change in bowel habits and Denies change in stool character Genitourinary: Reports no additional male genitourinary complaints, Denies hematuria, Denies oliguria, Denies difficulty urinating, Denies dysuria, Denies urinary frequency, Denies urinary hesitancy, Denies urinary incontinence and Denies urinary urgency Musculoskeletal: Reports no additional musculoskeletal complaints, Denies numbness and Denies tingling Denies dizziness, Denies loss of vision, Denies numbness and Denies tingling Psychiatric: Reports hopelessness and Reports suicidal ideation Endocrine: Reports no additional endocrine complaints Hematologic/Lymphatic: Reports no additional hematologic/lymphatic complaints Allergic/Immunologic: Reports no additional allergic/immunologic complaints Mental Status Exam Mental Status Exam Narrative: Appearance: edentulous, casually groomed, fair hygiene in NAD Behavior:calm psychomotor: no agitation or retardation noted Speech:clear, normal rate/rhythm, volume, spontaneous Thought process:linear Thought content:no signs of psychosis, looking forward to return to mother's house, get back on medications Mood: could be better Affect: constricted SI:passive HI:denies VH/AH:denies Delusions:none Insight/judgment:poor x 2. Memory/cog: alert, oriented x 4. grossly intact to conversational testing. Diagnostics Vital Signs (24Hr): Vital Signs - 24 hr 07/24/21 18:12 07/25/21 06:10 Temperature 98.6 F 98.4 F Pulse Rate 73 70 Respiratory Rate 18 15 Blood Pressure 97/64 93/59 L Pulse Oximetry 97 95 BMI result Verdana 4 Body Mass Index Verdana 4 22.2 Verdana 4 Verdana 4 Labs Results: 07/21/21 22:28 07/21/21 22:28 Labs: Laboratory Results - last 48 hr 07/23/21 07/24/21 07/24/21 11:32 08:36 08:36 Estimat Average Glucose 97 Hemoglobin A1c % 5.0 Triglycerides 169 Cholesterol 196 LDL Cholesterol, Calc 129 HDL Cholesterol 34 D Vitamin B12 Folate TSH 2.70 Free T4 0.98 COVID-19 ([facility]) Negative COVID-19 Clin Com See Note 07/24/21 08:36 Estimat Average Glucose Hemoglobin A1c % Triglycerides Cholesterol LDL Cholesterol, Calc HDL Cholesterol Vitamin B12 615 Folate 12.4 TSH Free T4 COVID-19 ([facility]) COVID-19 Clin Com Medications Medications Current Medications Acetaminophen (Acetaminophen 325 Mg Tablet) 650 mg PO Q6H PRN PRN Reason: Headache/Pain Mild Scale (1-3) Last Admin: 07/25/21 11:19 Dose: 650 mg Documented by: Al Hydroxide/Mg Hydroxide (Magnesium Hydrox/Alum Hydrox 30 Ml Oral.Susp) 30 ml PO Q6H PRN PRN Reason: Heartburn/Nausea Albuterol/Ipratropium (Albuterol/Iprat 2.5/0.5mg 3 Ml Ampul.Neb) 3 ml INHALE QID PRN PRN Reason: wheezing Clonidine HCl (Clonidine Hcl 0.1 Mg Tablet) 0.1 mg PO TID PRN; Protocol PRN Reason: Anxiety Last Admin: 07/25/21 11:19 Dose: 0.1 mg Documented by: Hydroxyzine HCl (Hydroxyzine Hcl 25 Mg Tablet) 25 mg PO BEDTIME PRN PRN Reason: Anxiety Last Admin: 07/23/21 21:17 Dose: 25 mg Documented by: Magnesium Hydroxide (Milk Of Magnesia 30 Ml Oral.Susp) 30 ml PO DAILY PRN PRN Reason: Constipation Methadone HCl (Methadone Hcl 20 Mg/2 Ml Oral.Conc) 145 mg PO DAILY OBINAN Last Admin: 07/25/21 09:14 Dose: 145 mg Documented by: Nicotine (Nicotine 21 Mg Patch.Td24) 21 mg TRANSDERMA DAILY COUNTS INCLUDE 234 BEDS AT THE [facility] Last Admin: 07/25/21 10:16 Dose: Not Given Documented by: Nicotine Polacrilex (Nicotine Polacrilex 2 Mg Gum) 2 mg BUCCAL Q2H PRN PRN Reason: Nicotine Cravings Last Admin: 07/25/21 11:22 Dose: 2 mg Documented by: Quetiapine Fumarate (Quetiapine Fumarate 50 Mg Tablet) 50 mg PO Q6H PRN PRN Reason: anxiety Last Admin: 07/24/21 16:16 Dose: 50 mg Documented by: Quetiapine Fumarate (Quetiapine Fumarate 200 Mg Tablet) 200 mg PO BEDTIME COUNTS INCLUDE 234 BEDS AT THE [facility] Last Admin: 07/24/21 20:23 Dose: 200 mg Documented by: Risperidone (Risperidone 1 Mg Tablet) 1 mg PO BID COUNTS INCLUDE 234 BEDS AT THE [facility] Last Admin: 07/25/21 09:14 Dose: 1 mg Documented by: Trazodone HCl (Trazodone Hcl 100 Mg Tablet) 100 mg PO BEDTIME COUNTS INCLUDE 234 BEDS AT THE [facility] Last Admin: 07/24/21 20:23 Dose: 100 mg Documented by: Trazodone HCl (Trazodone Hcl 50 Mg Tablet) 50 mg PO BEDTIME PRN PRN Reason: Insomnia Allergies Allergies Allergy/AdvReac Type Severity Reaction Status Date / Time No Known Allergies Allergy Verified 07/21/21 20:40 [No Known Allergies*] Assessment & Plan Assessment & Plan (1) MDD (major depressive disorder), recurrent episode, moderate: Status: Acute Code(s): F33.1 - Major depressive disorder, recurrent, moderate (2) Opioid use disorder, moderate, dependence: Status: Acute Code(s): F11.20 - Opioid dependence, uncomplicated (3) Cocaine use disorder, moderate, dependence: Status: Acute Code(s): F14.20 - Cocaine dependence, uncomplicated Plan Mr. Cuellar is a 46 year-old male with hx of MDD versus Bipolar Disorder and opioid (onmethadone) and cocaine use disorder who self presented to [facility] ED reporting increase depression, hopeless, passive SI in context of not taking risperidone, seroquel for past 3 days. Pt denies VH/AH. We discussed risks, benefits and alternative treatment options. PLAN 1. Admit to M5, CV, 15 minutes checks for safety 2. continue current medications, will add seroquel prn as pt reports helpful for anxiety 3. obtain collateral information 4. Aftercare planning. I spent minutes with the patient and/or on the patient floor today, greater than?50% of which was spent counseling/coordinating care. Reason for contiued inpatient stay Substantial Risk for: inability to function
[2021-07-25] MEDS: QUEtiapine Fumarate 50 MG TABLET PO (12:54)
[2021-07-25 17:15] VITALS: BP 82/52; PULSE 83; TEMP 36.3
[2021-07-25 19:40] VITALS: BP 91/52; PULSE 96
[2021-07-25] MEDS: hydrOXYzine HCL 25 MG TABLET PO (19:56)
[2021-07-25] MEDS: traZODone HCL 50 MG TABLET 150 MG PO (20:37)
[2021-07-25] MEDS: QUEtiapine Fumarate 200 MG TABLET PO (20:38)
[2021-07-26 06:00] VITALS: BP 81/53; PULSE 71; RESP 16; TEMP 36.7; O2SAT 94
--- NOTE | 2021-07-26 09:07 | P.DS_ITS ---
DS: Providers Provider Date of Service: 07/26/21 Date of admission: 07/23/21 13:47 Primary care physician: Brody Denise MD DS: Diagnosis Discharge Diagnosis (1) MDD (major depressive disorder), recurrent episode, moderate: Status: Acute (2) Opioid use disorder, moderate, dependence: Status: Acute (3) Cocaine use disorder, moderate, dependence: Status: Acute DS: Medications Discharge Medications Home Medications: Home Medications Medication Instructions Recorded Confirmed ipratropium 20 mcg-albuterol 100 1 puff PO QID PRN 07/21/21 07/21/21 mcg/actuation mist for inhalation (Combivent Respimat) methadone 10 mg tablet 145 mg PO DAILY 07/22/21 07/22/21 Previous Rx's Medication Instructions Recorded clonidine HCl 0.1 mg tablet 0.1 mg PO TID PRN #90 tab 07/26/21 naloxone 4 mg/actuation nasal 4 mg INTRANASAL Q2M PRN #2 ea 07/26/21 spray (Narcan) nicotine (polacrilex) 2 mg gum 2 mg BUCCAL Q2H PRN #30 ea 07/26/21 quetiapine 200 mg tablet 200 mg PO BEDTIME #30 tab 07/26/21 risperidone 1 mg tablet 1 mg PO BID #60 tab 07/26/21 trazodone 50 mg tablet 150 mg PO BEDTIME #90 tab 07/26/21 Mental Status Exam Mental Status Exam Narrative: Appearance: edentulous, casually groomed, fair hygiene in NAD Behavior:calm psychomotor: no agitation or retardation noted Speech:clear, normal rate/rhythm, volume, spontaneous Thought process:linear Thought content:no signs of psychosis, looking forward to return to mother's house, get back on medications Mood: better Affect: congruent, bright SI:denies HI:denies VH/AH:denies Delusions:none Insight/judgment:poor x 2. Memory/cog: alert, oriented x 4. grossly intact to conversational testing. Data Data Completed and Pending Completed studies during hospitalization [Text1]: 07/21/21 07/21/21 07/21/21 22:03 22:28 22:28 WBC RBC Hgb Hct MCV MCH MCHC RDW Plt Count MPV Immature Gran % (Auto) Neut % (Auto) Lymph % (Auto) Alexander % (Auto) Eos % (Auto) Baso % (Auto) Lymph # (Auto) Alexander # (Auto) Eos # (Auto) Baso # (Auto) Abs Immat Gran (auto) Absolute Neuts (auto) Absolute Nucleated RBC Nucleated RBC % (auto) Sodium Potassium Chloride Carbon Dioxide Anion Gap BUN Creatinine Estim Creat Clear Calc Estimated GFR Random Glucose Estimat Average Glucose Hemoglobin A1c % Calcium Triglycerides Cholesterol LDL Cholesterol, Calc HDL Cholesterol Vitamin B12 Folate TSH Free T4 Urine Color YELLOW Urine Appearance CLEAR Urine pH 6.0 Ur Specific [place] >= 1.030 H Urine Protein TRACE Urine Glucose (UA) NEG Urine Ketones 5 Urine Blood NEG Urine Nitrite NEG Ur Leukocyte Esterase NEG Urine Opiates Screen POSITIVE H Urine Fentanyl Screen POSITIVE H Ur Barbiturates Screen Not Detected Ur Phencyclidine Scrn Not Detected Ur Amphetamines Screen POSITIVE H U Benzodiazepines Scrn Not Detected Urine Cocaine Screen POSITIVE H U Marijuana (THC) Screen Not Detected COVID-19 ([facility]) Negative COVID-19 Clin Com See Note 07/21/21 07/21/21 07/23/21 22:28 22:28 11:32 WBC 5.0 RBC 4.73 Hgb 13.9 L Hct 42.0 MCV 88.8 MCH 29.4 MCHC 33.1 RDW 14.1 Plt Count 322 MPV 10.4 Immature Gran % (Auto) 0.2 Neut % (Auto) 43.4 L Lymph % (Auto) 43.0 H Alexander % (Auto) 9.4 Eos % (Auto) 3.6 Baso % (Auto) 0.4 Lymph # (Auto) 2.2 Alexander # (Auto) 0.5 Eos # (Auto) 0.2 Baso # (Auto) 0.0 Abs Immat Gran (auto) 0.01 Absolute Neuts (auto) 2.2 Absolute Nucleated RBC 0.000 Nucleated RBC % (auto) 0.0 Sodium 140 Potassium 3.7 Chloride 103 Carbon Dioxide 27 Anion Gap 14 BUN 13 Creatinine 1.09 Estim Creat Clear Calc 82.4 Estimated GFR > 60 Random Glucose 98 Estimat Average Glucose Hemoglobin A1c % Calcium 9.8 Triglycerides Cholesterol LDL Cholesterol, Calc HDL Cholesterol Vitamin B12 Folate TSH Free T4 Urine Color Urine Appearance Urine pH Ur Specific [place] Urine Protein Urine Glucose (UA) Urine Ketones Urine Blood Urine Nitrite Ur Leukocyte Esterase Urine Opiates Screen Urine Fentanyl Screen Ur Barbiturates Screen Ur Phencyclidine Scrn Ur Amphetamines Screen U Benzodiazepines Scrn Urine Cocaine Screen U Marijuana (THC) Screen COVID-19 ([facility]) Negative COVID-19 Clin Com See Note 07/24/21 07/24/21 07/24/21 08:36 08:36 08:36 WBC RBC Hgb Hct MCV MCH MCHC RDW Plt Count MPV Immature Gran % (Auto) Neut % (Auto) Lymph % (Auto) Alexander % (Auto) Eos % (Auto) Baso % (Auto) Lymph # (Auto) Alexander # (Auto) Eos # (Auto) Baso # (Auto) Abs Immat Gran (auto) Absolute Neuts (auto) Absolute Nucleated RBC Nucleated RBC % (auto) Sodium Potassium Chloride Carbon Dioxide Anion Gap BUN Creatinine Estim Creat Clear Calc Estimated GFR Random Glucose Estimat Average Glucose 97 Hemoglobin A1c % 5.0 Calcium Triglycerides 169 Cholesterol 196 LDL Cholesterol, Calc 129 HDL Cholesterol 34 D Vitamin B12 615 Folate 12.4 TSH 2.70 Free T4 0.98 Urine Color Urine Appearance Urine pH Ur Specific [place] Urine Protein Urine Glucose (UA) Urine Ketones Urine Blood Urine Nitrite Ur Leukocyte Esterase Urine Opiates Screen Urine Fentanyl Screen Ur Barbiturates Screen Ur Phencyclidine Scrn Ur Amphetamines Screen U Benzodiazepines Scrn Urine Cocaine Screen U Marijuana (THC) Screen COVID-19 ([facility]) COVID-19 Clin Com DS: Summary Hospital Course Hospital Course: HPI Subjective Notes: Conditional Voluntary Narrative: Mr. Vasquez is a 46 year-old male with hx of MDD, opioid and cocaine use disorder who self presented to [facility] reporting increased depressed mood, SI without plan in context of running out of medication including seroquel, clonidine, risperidone. In the ED his utox was positive for fentanyl, cocaine, opioid. Pt is on methadone maintance for opioid use disorder. On the unit, pt reports he was doing fairly fine, living with his mother. He reports he was out of his medications and became depressed. He endorses depressed mood, anhedonia, hopeless/helpless. He currently denies suicidal or homicidal ideation. He reports feeling anxious. He denies VH/AH. He does not appear internally preoccupied. He reports he has heard voices in the past about one month ago. He denies any other triggers. When asked about substance use, pt reports that's not a problem at all, I don't use regularly. Past Psychiatric History: Inpatient: 03/2019- M5 02/2019- M5 02/2018- M5 04/2006- [facility]TU ? OP: Dr. Sanya Vazquez [facility]; therapist Dmitriy Past medication trials: seroquel, risperidone, clonidine HOSPITAL COURSE On the unit, Mr. Cuellar was admitted on a CV and placed on 15 minutes checks for safety. After discussing risks, benefits and alternative treatment options, Mr. Cuellar agreed to restart previous psych meds including risperidone and seroquel for mood. He was also restarted on clonidine for anxious mood. He declined referrals for substance use treatment programs. His mood gradually presented as brighter. He did not seem to be responding to internal stimuli. He denied suicidal or homicidal ideation throughout this admission. His sleep and appetite was good. He did not show any signs of aggression towards self or others. He agreed to continue OP psych treatment through [facility]. Collateral information from mother who agrees to take pt back to her house and denied any safety concerns at time of discharge. Time spent discussing smoking cessation with patient: 3 to 10 minutes Status at Discharge Cognitive/behavioral status at discharge: Pt with bright affect, non labile, future oriented in that he was looking forward to return to his mother's house. He did not appear internally preoccupied. No signs of aggression towards self or others. He denied SI/HI. Functional status at discharge: independent ambulation Overall status at discharge: patient is progressing back to baseline Time Spent with Patient Time attestation: Total time spent providing and/or coordinating discharge services: Discharge Plan Discharge Patient Disposition: Home, Self-Care Discharge Diagnosis: MDD, recurrent, moderate Cocaine Use Disorder Opioid Use Disorder Referrals: Therapy: Dmitriy Hamilton [Other] - 08/17/21 12:00 pm (This appointment is in- office) Psychiatry: Dr. Sanya Hung [Other] - 08/01/21 9:00 am (This appointment is in-office) Brody Denise III, MD [Primary Care Provider] - 1 Week (THIS [employer] TRIED SEVERAL TIMES TO CALL. PUT ON HOLD FOR 1/2 HR EACH TIME. RN NOTIFIED AND REQUESTED TO PUT ON D/C PACKAGE TO CALL PATIENT FOR D/C FOLLOW-UP APPOINTMENT.) Discharge Medications: New clonidine HCl 0.1 mg Tablet 0.1 mg PO TID PRN (Reason: Anxiety) Qty: 90 0RF Protocol: Hold for SBP< HOLD for SBP < : 90 trazodone 50 mg Tablet 150 mg PO BEDTIME Qty: 90 0RF nicotine (polacrilex) 2 mg Gum 2 mg buccal Q2H PRN (Reason: Nicotine Cravings) Qty: 30 0RF quetiapine 200 mg Tablet 200 mg PO BEDTIME Qty: 30 0RF risperidone 1 mg Tablet 1 mg PO BID Qty: 60 0RF naloxone [Narcan] 4 mg/actuation spray,non-aerosol 4 mg intranasal Q2M PRN (Reason: opioid overdose) Qty: 2 0RF Rx Instructions: spray 1 dose into ONE nostril; alternate nostrils w each dose until help arrives Continued Combivent Respimat 20-100 mcg/actuation mist 1 puff PO QID PRN (Reason: wheezing) 0RF methadone 10 mg Tablet 145 mg PO DAILY 0RF Discontinued risperidone 1 mg tablet 1 tab PO BID 0RF clonidine HCl 0.1 mg tablet 1 tab PO TID PRN (Reason: Anxiety) Qty: 30 0RF quetiapine 100 mg tablet 1 - 2 tab PO BEDTIME PRN (Reason: insomnia) 0RF trazodone 100 mg tablet 1 tab PO BEDTIME 0RF Discharge Orders: Discharge Order (Routine); Ordered 07/26/21 Ordered By: Lisbet Craig Diet: regular diet Activity on Discharge: As tolerated Stand Alone Forms: Patient Portal Discharge page Care Plan Goals: 1. Maintain mood 2. No SI/HI 3. Harm reduction- given narcan on discharged and sent to his pharmacy as well Health Concerns: Follow up with PCP Plan of Treatment: 1. Take medications as prescribed 2. Go to nearest ED or call 911 in event of emergency Assessment: Pt with bright affect, non labile. He denies symptoms of depression or anxious mood. No SI/HI. No signs of psychosis or delusional content. No signs of aggression towards self or others. Minimal insight into substance use. Harm reduction discussed at length- given narcan on discharged and sent rx to pharmacy. Discharge Date/Time: 07/26/21 13:57
[2021-07-26 10:10] VITALS: BP 130/78; PULSE 77; RESP 16
[2021-07-26] MEDS: methADONE HCl 20 MG/2 ML ORAL.CONC 145 MG PO (10:14)
[2021-07-26] MEDS: cloNIDine HCL 0.1 MG TABLET PO (10:14)
[2021-07-26] MEDS: QUEtiapine Fumarate 50 MG TABLET PO (10:14)
[2021-07-26] MEDS: risperiDONE 1 MG TABLET PO (10:14)
== END 2021-07-26 13:57 | disposition home or self-care (01) | DRG 751 ==
LOC: HO.ED 07-22 00:45 → HO.PM5 07-23 13:54
PROVIDERS: Nurse Practitioner Family; Physician Assistant Medical; Admitting Provider Psychiatry & Neurology Psychiatry; Emergency Provider Emergency Medicine; PCP Internal Medicine; Visit Provider Social Worker
DX: F33.1 Major depressive disorder, recurrent, moderate (principal); R45.851 Suicidal ideations; F11.20 Opioid dependence, uncomplicated; F14.20 Cocaine dependence, uncomplicated; Z20.822 Contact with and (suspected) exposure to COVID-19; F17.210 Nicotine dependence, cigarettes, uncomplicated; Z71.6 Tobacco abuse counseling; Z79.899 Other long term (current) drug therapy
CPT/HCPCS: 36415; 80048; 80061; 80307; 81003; 82607; 82746; 83036; 84439; 84443; 85025; 87635; 93005; 99285

== ENCOUNTER 2021-11-17 07:50 | Emergency (ER) | payer OTHER, SELFPAY ==
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
[2021-11-17 08:31] VITALS: BP 101/69; PULSE 59; RESP 16; TEMP 36.6; O2SAT 98; BMI 25.7
[2021-11-17] MEDS: Acetaminophen 325 MG TABLET 975 MG PO (09:46)
--- NOTE | 2021-11-17 10:03 | MHC.RECOVRN ---
Spoke with Edouard at [facility], pt is currently receiving 160 mg daily, last dose yesterday 11/16.
[2021-11-17] MEDS: methADONE HCl 20 MG/2 ML ORAL.CONC 160 MG PO (10:24)
== END 2021-11-17 10:45 | disposition home or self-care (01) ==
PROVIDERS: Emergency Provider Emergency Medicine; PCP Internal Medicine
DX: Z04.1 Encounter for examination and observation following transport accident (principal); M54.2 Cervicalgia; M54.6 Pain in thoracic spine; F11.20 Opioid dependence, uncomplicated; F14.20 Cocaine dependence, uncomplicated; F33.1 Major depressive disorder, recurrent, moderate; Z79.899 Other long term (current) drug therapy
CPT/HCPCS: 70450; 72125; 72128; 99282; 99284

== ENCOUNTER 2024-02-08 13:45 | Observation (INO) | payer OTHER, SELFPAY ==
[2024-02-08] VITALS (11 sets, daily range): BP systolic 85–132; BP diastolic 47–88; PULSE 55–62; RESP 12–19; TEMP 36.3–36.8; O2SAT 95–98; BMI 21.5; BMI 23.6
--- NOTE | ~2024-02-08 | XR_ITS ---
EXAMINATION: XR chest 2V CLINICAL INFORMATION: Near syncope COMPARISON: Prior chest x-ray May 2020 TECHNIQUE: XR chest 2V, 2 Views Lungs and Zarina: Very mild interstitial perihilar opacification and peribronchial cuffing might be small airway disease. No dense lobar consolidation lobar pneumonia. No pleural effusion. Pleura: Normal. Costophrenic angles are sharp. No pneumothorax. Heart: The heart is normal in size. Mediastinum: The mediastinum is within normal limits.. Bones: Skeletal structures included are normal for patient's age. XR/XR chest 2V IMPRESSION: 1. Very mild interstitial perihilar opacification and peribronchial cuffing might be small airway disease. 2. No dense lobar consolidation pneumonia or pleural effusion.
--- NOTE | 2024-02-08 13:47 | ECG_ITS ---
Test Reason : Chest Pain Blood Pressure : / mmHG Vent. Rate : 057 BPM Atrial Rate : 057 BPM P-R Int : 192 ms QRS Dur : 074 ms QT Int : 452 ms P-R-T Axes : 048 050 070 degrees QTc Int : 439 ms Sinus bradycardia Otherwise normal ECG When compared with ECG of 24-JUL-2021 09:35, Vent. rate has decreased BY 32 BPM Referred By: Generic ED Physician Electronically Signed By:SHERYL PIMENTEL
--- NOTE | 2024-02-08 13:55 | ED_ITS ---
HPI - Dizziness General Chief Complaint: Syncope Stated Complaint: NEAR SYNCOPE Time Seen by Provider: 02/08/24 14:06 Source: patient Mode of arrival: ambulatory Limitations: no limitations History of Present Illness ED Provider: Mechelle Senior APRN HPI Narrative: 48-year-old male with a history of anxiety, depression, asthma, polysubstance abuse presents the ER after a near syncopal episode. Patient reports he was standing up when he had an episode of dizziness, chest pressure, shortness of breath and diaphoresis causing him to lower himself to the ground. There was no loss consciousness. Upon EMS arrival the patient's blood pressure was 80 systolic. He did receive approximately 200 mL of normal saline prior to arrival. He is currently asymptomatic. He denies any recent illnesses. He has been eating and drinking normally. He does take methadone 190 mg daily which he took today. Also takes clonidine daily 0.1 mg which he took this morning. Normally takes seroquel at nightime but took extra dose of 200mg this morning. He has had no recent changes in his medication. He does smoke cigarettes but denies any current substance or alcohol use Related Data Home Medications ?Medication ?Instructions ?Recorded ?Confirmed ipratropium 20 mcg-albuterol 100 1 puff PO QID PRN wheezing 07/21/21 07/21/21 mcg/actuation mist for inhalation (Combivent Respimat) methadone 10 mg tablet 145 mg PO DAILY 07/22/21 07/22/21 methadone 5 mg/5 mL oral solution 160 mg PO DAILY 11/17/21 11/17/21 Previous Rx's ?Medication ?Instructions ?Recorded clonidine HCl 0.1 mg tablet 0.1 mg PO TID PRN Anxiety #90 tabs 07/26/21 naloxone 4 mg/actuation nasal 4 mg intranasal Q2M PRN opioid 07/26/21 spray (Narcan) overdose #2 ea nicotine (polacrilex) 2 mg gum 2 mg buccal Q2H PRN Nicotine 07/26/21 Cravings #30 ea quetiapine 200 mg tablet 200 mg PO BEDTIME #30 tabs 07/26/21 risperidone 1 mg tablet 1 mg PO BID #60 tabs 07/26/21 trazodone 50 mg tablet 150 mg (3 x 50 mg) PO BEDTIME #90 07/26/21 tabs Allergies Allergy/AdvReac Type Severity Reaction Status Date / Time No Known Allergies Allergy Verified 02/08/24 13:53 [No Known Allergies*] Review of Systems 2 Review of Systems: Yes all other systems are reviewed and are negative Constitutional: Constitutional: Reports no additional constitutional complaints, Denies body ache(s), Denies chills, Denies fever(s), Denies headache(s) and Denies weakness Eyes: Eyes: Reports no additional eye complaints and Denies change in vision ENT: Reports system reviewed and no additional complaints, except as documented, Reports dizziness, Denies headache(s), Denies nasal congestion, Denies nasal discharge and Denies neck pain Cardiovascular: Cardiovascular: Reports no additional cardiovascular complaints, Reports chest pain, Denies leg edema and Reports dyspnea Respiratory: Respiratory: Reports no additional respiratory complaints, Denies cough and Reports dyspnea Gastrointestinal: Gastrointestinal: Reports no additional gastrointestinal complaints, Denies abdominal pain, Denies diarrhea, Denies nausea and Denies vomiting Genitourinary: Genitourinary: Denies urinary incontinence Musculoskeletal: Musculoskeletal: Reports no additional musculoskeletal complaints, Denies back pain, Denies arthralgias, Denies joint swelling, Denies neck pain, Denies numbness and Denies tingling Integumentary/Breasts: Skin/Breast: Reports system reviewed and no additional complaints, except as docu and Denies rash Neurologic: Reports system reviewed and no additional complaints, except as documented, Denies Abnormal speech present, Reports dizziness, Denies headache(s), Denies numbness, Denies tingling and Denies weakness PMFSH Past Medical History Attestation statement: The following information was validated with the patient. Source: old records reviewed and nursing notes reviewed Medical History Mental health problem Respiratory failure Insomnia COPD (chronic obstructive pulmonary disease) Asthma Social History Social History Household Members: Family Housing: Apartment Do you presently have visiting nurse or other home services: No Alcohol intake: never Comment: mild decrease in wheezing Patient Tobacco Use Status: Current everyday Tobacco user Tobacco use type: Cigarette Cigarettes Per Day: 10 Years Smoked: 38 Smoked in Last 30 Days: Yes e-Cigarette/Vaping Use: Never Used Second Hand Smoke Exposure: Yes Use of substances other than those prescribed or required for medical reasons: No Substance Use Type: Crack/Cocaine and Heroin Advance Directives: No Advance Directives Information Provided: No service: No Current occupational status: unemployed Sexual orientation: Did not discuss Physical Exam 2 Vital Signs: Vital Signs: Last Vital Signs Temp 98.3 F 02/08/24 18:33 Pulse 59 02/08/24 18:33 Resp 18 02/08/24 18:33 BP 132/88 02/08/24 18:33 Pulse Ox 97 02/08/24 18:33 O2 Del Method Room Air 02/08/24 18:33 BMI result Body Mass Index 21.5 Const: Other: pale General: cooperative and healthy appearing Orientation/consciousness: p atient oriented x3 Limitations: no limitations HEENT: Head: Yes normal to inspection Ears: hearing grossly normal bilaterally General nose exam: Normal external nose present Face and sinus: Yes normal facial exam Mouth: Normal oral and palatal mucosa present Throat: Yes posterior oropharynx normal Eyes: General: appearance normal, both eyes and all related structures P upils: Equal, round and reactive pupils present Neck: Neck: Yes normal visual inspection, Yes full ROM, Yes no lymphadenopathy and Yes no meningeal signs Chest: Chest palpation & inspection: normal inspection of the chest Resp: Effort & Inspection: normal respiratory effort Auscultation: clear to auscultation bilaterally Cardio: Rate: regular rate Rhythm: regular rhythm Peripheral pulses: P eripheral pulses 2+ throughout GI: Inspection: Yes normal to inspection Palpation (GI): Soft to palpation and nontender Auscultation: normal bowel sounds Back/Spine/Pelvis: Thoracic/Lumbar Spine: thoracic and lumbar spine normal to inspection Skin: General skin exam: no rashes or lesions noted Neuro: General: patient oriented x3, no meningeal signs, no focal motor deficits and normal sensation to monofilament Cranial nerves: Yes Equal, round and reactive pupils present Cognition (Neuro): normal cognition S peech: No Abnormal speech present Gait exam (Neuro): Normal gait present M otor exam (neuro): 5/5 motor strength present throughout Extrem: General: Yes normal to inspection, Yes no pedal edema and Yes no calf tenderness Medications Administered Discontinued Medications Generic Name Dose Route Start Last Admin Trade Name Freq PRN Reason Stop Dose Admin Sodium Chloride 2,041.17 mls @ 2,041.17 mls/hr 02/08/24 13:53 02/08/24 16:33 Ns 30 ml/kg infuse over 1 hr (2040.17 ml) 02/08/24 14:52 Infused IV Infusion .Q1H STA Medical Decision Making Medical Decision Making [facility] Narrative: 48-year-old male with a history of anxiety, depression, asthma, polysubstance abuse presents the ER after a near syncopal episode.? Patient reports he was standing up when he had an episode of dizziness, chest pressure, shortness of breath and diaphoresis causing him to lower himself to the ground.? There was no loss consciousness.? Upon EMS arrival the patient's blood pressure was 80 systolic.? He did receive approximately 200 mL of normal saline prior to arrival.? He is currently asymptomatic.? He denies any recent illnesses.? He has been eating and drinking normally.? He does take methadone 190 mg daily which he took today.? Also takes clonidine daily 0.1 mg which he took this morning.??Normally takes seroquel at nightime but took extra dose of 200mg this morning.? He has had no recent changes in his medication. Exam is benign. BP 94 systolic. Unaware of normal BP WIll obtain labs, EKG, orthos, CXR, POC WIll give IVF Differential Diagnosis Differential Diagnoses: The differential diagnosis associated with the presentation includes ACS, PE, dissection, orthostatic hypotension, metabolic cause, anemia, medication side effect Admission/Observation Consideration of admission/observation: Escalation of care including admission/observation considered Patient's initial troponin was negative. His repeat 3 hour troponin is elevated. His repeat EKG is nonischemic. He is not having any chest pain. His troponin may be elevated due to hypotension or we may also consider an NSTEMI. I did speak to Cardiology (richa) as well as the hospitalist. Cardiology recommended treating with aspirin and trending troponins. They recommended holding heparin at this time. Consult Healthcare Provider Management of the patient was discussed with: Hospitalist and Seamer See above Lab Data MDM Lab Attestation statement: I reviewed the patient's lab results. 02/08/24 14:16 02/08/24 14:16 Labs: Lab Results 02/08/24 02/08/24 02/08/24 Range/Units 14:10 14:16 17:26 WBC 4.7 L (4.8-10.8) X10*3/uL RBC 4.24 L (4.60-5.80) X10*6/uL Hgb 13.1 L (14.0-18.0) g/dl Hct 39.1 L (42.0-52.0) % MCV 92.2 (80.0-98.0) fL MCH 30.9 (27.0-33.0) pg MCHC 33.5 (31.0-36.0) g/dl RDW 13.4 (11.0-16.0) % Plt Count 150 L D (160-400) X10*3/uL MPV 10.8 (9.4-12.4) fL Immature Gran % (Auto) 0.4 (0.0-0.4) % Neut % (Auto) 46.4 (45-73) % Lymph % (Auto) 39.8 (20-40) % [place] % (Auto) 9.6 (2-11) % Eos % (Auto) 3.4 (0-4) % Baso % (Auto) 0.4 (0-2) % Lymph # (Auto) 1.9 (1.2-4.9) X10*3/uL [place] # (Auto) 0.5 (0.1-1.2) X10*3/uL Eos # (Auto) 0.2 (0.0-0.4) X10*3/uL Baso # (Auto) 0.0 (0.0-0.2) X10*3/uL Abs Immat Gran (auto) 0.02 (0.00-0.03) X10*3/uL Absolute Neuts (auto) 2.2 (2.0-8.3) x10*3/uL Absolute Nucleated RBC 0.000 (0.0-0.012) X10*3/uL Nucleated RBC % (auto) 0.0 (0.0-0.2) /100WBC PT 10.7 L (11.1-13.3) SEC INR 0.9 (0.9-1.1) D-Dimer High Sensitivty 166 NG/ML Sodium 143 (135-145) mmol/L Potassium 3.9 (3.3-5.1) mmol/L Chloride 109 H (96-108) mmol/L Carbon Dioxide 23 (22-29) mmol/L Anion Gap 15 (12-20) BUN 14 (9-16) mg/dL Creatinine 0.98 (0.5-1.4) mg/dL Estim Creat Clear Calc 86.7 Estimated GFR > 60 POC Glucose 105 (60-115) mg/dL Random Glucose 73 (60-115) mg/dL Lactic Acid 1.8 (0.5-2.0) mmol/L Calcium 9.4 (8.4-10.2) mg/dL Magnesium 2.0 (1.6-2.6) mg/dL Total Bilirubin 0.2 (0.0-1.0) mg/dL Direct Bilirubin 0.1 (0.0-0.5) mg/dL AST 15 (5-37) U/L ALT 13 (0-40) U/L Alkaline Phosphatase 69 (39-117) U/L Total Creatine Kinase 122 (38-174) U/L Troponin I High Sens 11.8 264.0 H* D (<3.5-35.0) ng/L Total Protein 6.9 (6.5-8.0) g/dL Albumin 4.0 (3.5-5.0) g/dL Ethyl Alcohol < 10 mg/dL Influenza Type A (PCR) NEGATIVE (Negative) Influenza Type B (PCR) NEGATIVE (Negative) RSV RNA Qual (PCR) NEGATIVE (Negative) SARS-CoV-2 RNA (RT-PCR) NEGATIVE (Negative) Independent Interpretation I performed an independent interpretation of an: EKG and Plain X-Ray Interpretation: I independently viewed the EKG which shows sinus bradycardia with a rate 57, normal VA, normal QRS, no acute I independently reviewed the chest x-ray and agree with the radiology report Radiology Impression Discussion of test interpretation with radiology: I have reviewed the radiologist's reading. Radiologist Impression: [address] [address] XRay Report Signed Patient: Gelacio Cuellar MR#: [id number] : 1975 Acct:[id number] Age/Sex: 48 / M ADM Date: 02/08/24 Loc: .ED Attending Dr: Ordering Physician: Mechelle Baugh NP Date of Service: 02/08/24 Procedure(s): XR chest 2V Accession Number(s): [id number] cc: Physician,None ; Mechelle Baugh NP~ EXAMINATION: XR chest 2V CLINICAL INFORMATION: Near syncope COMPARISON: Prior chest x-ray May 2020 TECHNIQUE: XR chest 2V, 2 Views Lungs and Zarina: Very mild interstitial perihilar opacification and peribronchial cuffing might be small airway disease. No dense lobar consolidation lobar pneumonia. No pleural effusion. Pleura: Normal. Costophrenic angles are sharp. No pneumothorax. Heart: The heart is normal in size. Mediastinum: The mediastinum is within normal limits.. Bones: Skeletal structures included are normal for patient's age. XR/XR chest 2V IMPRESSION: 1. Very mild interstitial perihilar opacification and peribronchial cuffing might be small airway disease. 2. No dense lobar consolidation pneumonia or pleural effusion. Independent Historian Clinical information obtained from an independent historian. History obtained from or confirmed by: EMS Critical Care Time Critical Care Time Critical Care Time: Yes Total Critical Care Time: 60 Attestation: NSTEMI Discussion with hospitalist Discussion with patient Discussion with Cardiology Discharge Plan Discharge Clinical Impression: Hypotension, Elevated troponin Patient Disposition: Admitted As Inpatient Additional Instructions: Please hold your Seroquel tonight Please hold your clonidine for tomorrow. Check your blood pressure Saturday morning and touch base with your primary care doctor about continuing your clonidine or holding this Make sure that you are drinking plenty of fluids. Return for any worsening symptoms Print Language: Tajik
[2024-02-08] MEDS: 0.9 % Sodium Chloride 2,041.17 ML 2041.17 ML IV (14:02)
[2024-02-08 14:14] LABS: Glucose, Whole Blood 105 mg/dL (60-115)
[2024-02-08 14:24] LABS: Basophils Percent Auto 0.4 % (0-2); Eosinophils Absolute Auto 0.2 X10*3/uL (0.0-0.4); Eosinophils Percent Auto 3.4 % (0-4); Hematocrit 39.1 % (42.0-52.0); Hemoglobin 13.1 g/dl (14.0-18.0); Imm Gran Abs Auto 0.02 X10*3/uL (0.00-0.03); Imm Gran Pct Auto 0.4 % (0.0-0.4); Lymphocytes Absolute Auto 1.9 X10*3/uL (1.2-4.9); Lymphocytes Percent Auto 39.8 % (20-40); MANUAL DIFF FLAG NO; Mean Corpuscular HGB Conc 33.5 g/dl (31.0-36.0); Mean Corpuscular Hemoglobin 30.9 pg (27.0-33.0); Mean Corpuscular Volume 92.2 fL (80.0-98.0); Mean Platelet Volume 10.8 fL (9.4-12.4); Monocytes Absolute Auto 0.5 X10*3/uL (0.1-1.2); Monocytes Percent Auto 9.6 % (2-11); Neutrophils Absolute Auto 2.2 x10*3/uL (2.0-8.3); Neutrophils Percent Auto 46.4 % (45-73); Platelet Count 150 X10*3/uL (160-400); Red Blood Count 4.24 X10*6/uL (4.60-5.80); Red Cell Distribution Width 13.4 % (11.0-16.0); White Blood Count 4.7 X10*3/uL (4.8-10.8)
[2024-02-08 14:31] LABS: INTERNATIONAL NORM RATIO 0.9 (0.9-1.1); Prothrombin Time 10.7 SEC (11.1-13.3)
[2024-02-08 14:34] LABS: D Dimer High Sensitivity 166 NG/ML
[2024-02-08 14:35] LABS: Lactic Acid 1.8 mmol/L (0.5-2.0)
[2024-02-08 14:39] LABS: Ethanol < 10 mg/dL
[2024-02-08 14:40] LABS: Alanine Aminotransferase 13 U/L (0-40); Alkaline Phosphatase 69 U/L (39-117); Anion Gap 15 (12-20); Aspartate Amino Transferase 15 U/L (5-37); Bilirubin Direct 0.1 mg/dL (0.0-0.5); Blood Urea Nitrogen 14 mg/dL (9-16); Calcium 9.4 mg/dL (8.4-10.2); Carbon Dioxide 23 mmol/L (22-29); Chloride 109 mmol/L (96-108); Creatinine Clr Calc Pharmacy 86.7; Estimated Glomerular Filt Rate > 60; Glucose Random 73 mg/dL (60-115); Potassium 3.9 mmol/L (3.3-5.1); Sodium 143 mmol/L (135-145); Total Protein 6.9 g/dL (6.5-8.0)
[2024-02-08 14:46] LABS: Troponin-I High Sensitivity 11.8 ng/L (<3.5-35.0)
[2024-02-08 14:47] LABS: Bilirubin Total 0.2 mg/dL (0.0-1.0)
--- NOTE | 2024-02-08 14:52 | PC.NURSE ---
Pt presents to ED via EMS from home, reports he had an episode of chest pain, dizziness and SOB while ambulating, felt like he was going to pass out. Pt was able to lower himself to ground and call for help, never had full LOC or any head hit. EMS found pts BP to be hypotensive. Pt is alert and oriented, breathing even and unlabored, skin pale and clammy. 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 BP hypotensive. NS fluids infusing.
--- NOTE | 2024-02-08 15:03 | MHC.EDTECH ---
This pct took over the section for another tech which did not obtain ortho static vitals which were due before 2pm and were not done.RN AWARE
[2024-02-08 15:07] LABS: Influenza A PCR NEGATIVE (Negative); Influenza B PCR NEGATIVE (Negative); Resp Syncy Virus RNA Qual PCR NEGATIVE (Negative); SARS COV2 PCR INHOUSE NEGATIVE (Negative)
--- NOTE | 2024-02-08 16:33 | PC.NURSE ---
Pts daughter yenny called: [phone]. Pt asked we call her for d/c when it comes to that time
--- NOTE | 2024-02-08 18:31 | ECG_ITS ---
Test Reason : CHEST PAIN Blood Pressure : / mmHG Vent. Rate : 063 BPM Atrial Rate : 063 BPM P-R Int : 178 ms QRS Dur : 068 ms QT Int : 418 ms P-R-T Axes : 039 018 046 degrees QTc Int : 427 ms Normal sinus rhythm Normal ECG When compared with ECG of 08-FEB-2024 13:55, No significant change was found Referred By: Mechelle Senior Electronically Signed By:SHERYL PIMENTEL
--- NOTE | 2024-02-08 18:38 | PC.NURSE ---
Pt denies any CP or SOB, reports he feels overall much better. VSS, sinus elliott on bedside personnel monitor
[2024-02-08] MEDS: Aspirin 81 MG TAB.CHEW 324 MG PO (18:52)
--- NOTE | 2024-02-08 19:27 | PM.IMHP ---
History of Present Illness Date of Service: 02/08/24 Attending physician on admission: Brina Palencia Chief Complaint: near syncope 48-year-old male with history of unspecified asthma, opiate use disorder on methadone, cocaine abuse and mood disorder presented to the ED earlier today after having a near syncopal episode around 230 this afternoon. He states he was eating and began feeling lightheaded and diaphoretic and blacked out. He does not believe he fully passed out and did not hit his head. He is not on any blood thinners. He states his last drug use was inhaled cocaine about 2-3 days ago and denies any recent use of illicit substances besides this. He does smoke 2 cigarettes a day but denies any alcohol use. He has never had prior episode. Denies any fevers, chills, abdominal pain, nausea, vomiting, diarrhea, shortness of breath, palpitations, chest pain. He is currently asymptomatic. On arrival, he was hypotensive to 85/54 132/88 on admission with IV fluid resuscitation. Vitals have otherwise been stable. Renal function and electrolyte levels are normal. D-dimer 166. Initial troponin 11, repeat 264. Ethyl alcohol level undetectable. Urine drug screen pending. egative for COVID, flu, RSV. Chest x-ray shows mild interstitial perihilar opacification and peribronchial cuffing possibly small airways disease but no dense consolidation or effusions. In the ED, has received 2 L IVF and 324 mg aspirin. Review of Systems Review of Systems: Yes all other systems are reviewed and are negative [facility] Medical History Mental health problem Respiratory failure Insomnia COPD (chronic obstructive pulmonary disease) Asthma Social History Household Members: Family Housing: Apartment Do you presently have visiting nurse or other home services: No Alcohol intake: never Comment: mild decrease in wheezing Patient Tobacco Use Status: Current everyday Tobacco user Tobacco use type: Cigarette Cigarettes Per Day: 10 Years Smoked: 38 Smoked in Last 30 Days: Yes e-Cigarette/Vaping Use: Never Used Second Hand Smoke Exposure: Yes Use of substances other than those prescribed or required for medical reasons: No Substance Use Type: Crack/Cocaine and Heroin Advance Directives: No Advance Directives Information Provided: No Nutrition Risks: No Nutritional Risk service: No Current occupational status: unemployed Sexual orientation: Did not discuss Meds Allergies Allergy/AdvReac Type Severity Reaction Status Date / Time No Known Allergies Allergy Verified 02/08/24 13:53 [No Known Allergies*] Home Medications ?Medication ?Instructions ?Recorded ?Confirmed ?Last Taken ?Type ipratropium 20 mcg-albuterol 100 1 puff PO QID PRN wheezing 07/21/21 07/21/21 Unknown History mcg/actuation mist for inhalation (Combivent Respimat) methadone 10 mg tablet 145 mg PO DAILY 07/22/21 07/22/21 07/21/21 08:00 History methadone 5 mg/5 mL oral solution 160 mg PO DAILY 11/17/21 11/17/21 11/16/21 History Physical Exam Vital Signs and Narrative: Vital Signs: Last Vital Signs Temp 98.3 F 02/08/24 18:33 Pulse 59 02/08/24 18:33 Resp 18 02/08/24 18:33 BP 132/88 02/08/24 18:33 Pulse Ox 97 02/08/24 18:33 O2 Del Method Room Air 02/08/24 18:33 BMI result Body Mass Index 21.5 Constitutional - Awake and Alert, No apparent distress Eyes - PERRLA, EOMI Cardiovascular - S1S2, RRR, No edema Respiratory - Normal lung expansion, Normal respiratory effort, No respiratory distress, CTA bilaterally Gastrointestinal - NT / ND; +BS; No rebound or guarding Extremities - no calf tenderness bilaterally, no swelling Skin - Warm/Dry Neurological - Alert & oriented x3 Psychological - Appropriate affect Results Labs 02/08/24 14:16 02/08/24 14:16 Labs: Laboratory Results - last 24 hr 02/08/24 02/08/24 02/08/24 14:10 14:16 17:26 MCV 92.2 MCH 30.9 MCHC 33.5 RDW 13.4 Plt Count 150 L D MPV 10.8 Immature Gran % (Auto) 0.4 Neut % (Auto) 46.4 Lymph % (Auto) 39.8 [place] % (Auto) 9.6 Eos % (Auto) 3.4 Baso % (Auto) 0.4 Lymph # (Auto) 1.9 [place] # (Auto) 0.5 Eos # (Auto) 0.2 Baso # (Auto) 0.0 Abs Immat Gran (auto) 0.02 Absolute Neuts (auto) 2.2 Absolute Nucleated RBC 0.000 Nucleated RBC % (auto) 0.0 PT 10.7 L INR 0.9 APTT 27.0 D-Dimer High Sensitivty 166 Anion Gap 15 Estim Creat Clear Calc 86.7 Estimated GFR > 60 POC Glucose 105 Random Glucose 73 Lactic Acid 1.8 Calcium 9.4 Magnesium 2.0 Total Bilirubin 0.2 Direct Bilirubin 0.1 AST 15 ALT 13 Alkaline Phosphatase 69 Total Creatine Kinase 122 Troponin I High Sens 11.8 264.0 H* D Total Protein 6.9 Albumin 4.0 Ethyl Alcohol < 10 Influenza Type A (PCR) NEGATIVE Influenza Type B (PCR) NEGATIVE RSV RNA Qual (PCR) NEGATIVE SARS-CoV-2 RNA (RT-PCR) NEGATIVE Imaging Radiologist's Impressions: Impressions Chest X-Ray 02/08/24 14:56 IMPRESSION: 1. Very mild interstitial perihilar opacification and peribronchial cuffing might be small airway disease. 2. No dense lobar consolidation pneumonia or pleural effusion. Assessment and Plan (1) Hypotension: Status: Acute (2) Elevated troponin: Status: Acute Plan 48-year-old male with history of unspecified asthma, opiate use disorder on methadone, cocaine abuse and mood disorder to be observed for elevated troponins in the setting of hypoperfusion/hypotension #near syncope -likely related to orthostasis/hypotension -ethyl alcohol level undetectable. Urine tox screen pending. Renal function and electrolyte levels normal. No evidence of infection -resuscitated with 2 L IVF with normalization of blood pressures, patient is currently asymptomatic. Hold on further IV fluids at this time -monitor on telemetry #hypotension -see above, not related to infection. no sepsis/severe sepsis # elevated troponins -likely in the setting of hypoperfusion/hypotension-resuscitated with IV fluids -repeat troponin now, trend until peak -monitor on telemetry -cardiology consult #OUD/cocaine abuse -continue methadone -utox pending -addiction med consult #Asthma/copd overlap -no exacerbation. continue home inhalers #Mood disorder -continue home meds dvt prophylaxis- lovenox full code Quality Stroke Does the patient have a stroke diagnosis?: No VTE Prior VTE?: No VTE Risk Level:: Medical - moderate - high VTE Device Contraindication: Treatment Not Indicated VTE Drug Contraindication: N/A - Med Ordered
[2024-02-08 20:03] LABS: Troponin-I High Sensitivity 264.6 ng/L (<3.5-35.0)
[2024-02-08] MEDS: Enoxaparin Sodium 40 MG/0.4 ML SYRINGE SUBCUT (20:13)
--- NOTE | 2024-02-08 20:16 | PC.NURSE ---
pt reports methadone dose is 190, miravista
[2024-02-08] MEDS: QUEtiapine Fumarate 400 MG TABLET PO (22:01)
[2024-02-08] MEDS: 0.9 % Sodium Chloride Flush 3 ML SYRINGE IVFLUSH (22:04)
[2024-02-09] VITALS (7 sets, daily range): BP systolic 104–140; BP diastolic 62–88; PULSE 58–98; RESP 18–20; TEMP 36.1–36.4; O2SAT 96–98
[2024-02-09] MEDS: Calcium Carbonate 750 MG TAB.CHEW PO ×2 (03:33→12:12)
[2024-02-09] MEDS: Melatonin 3 MG TABLET 6 MG PO (03:33)
[2024-02-09 05:06] LABS: Appearance Urine Clear; Color Urine Yellow; Glucose Urine UA Negative (Negative); Leukocyte Esterase Urine Negative (Negative); Nitrite Urine Negative (Negative); Specific Gravity - Urine <= 1.005 (1.005-1.025); Urine Blood Negative (Negative); Urine Ketones Negative (Negative); Urine Protein Negative (Neg-Trace)
[2024-02-09 05:15] LABS: Amphetamine Screen Urine Not Detected (Not Detect); Barbiturates, Urine Not Detected (Not Detect); Benzodiazepines Screen Urine Not Detected (Not Detect); Buprenorphine Scr Not Detected (Not Detect); Cannabinoid Screen Urine Not Detected (Not Detect); Cocaine Screen Urine POSITIVE (Not Detect); Fentanyl, urine Not Detected (Not Detect); Methadone Screen, Urine Positive (Not Detect); Opiate Screen Urine Not Detected (Not Detect); Oxycodone Screen Urine Not Detected (Not Detect); Phencyclidine Screen Urine Not Detected (Not Detect)
[2024-02-09 06:45] LABS: MANUAL DIFF FLAG NO
[2024-02-09 07:02] LABS: Basophils Percent Auto 0.5 % (0-2); Eosinophils Absolute Auto 0.2 X10*3/uL (0.0-0.4); Hematocrit 38.1 % (42.0-52.0); Hemoglobin 13.2 g/dl (14.0-18.0); Imm Gran Abs Auto 0.01 X10*3/uL (0.00-0.03); Imm Gran Pct Auto 0.2 % (0.0-0.4); Lymphocytes Absolute Auto 1.8 X10*3/uL (1.2-4.9); Lymphocytes Percent Auto 42.8 % (20-40); Mean Corpuscular HGB Conc 34.6 g/dl (31.0-36.0); Mean Corpuscular Hemoglobin 31.4 pg (27.0-33.0); Mean Corpuscular Volume 90.7 fL (80.0-98.0); Mean Platelet Volume 11.2 fL (9.4-12.4); Monocytes Absolute Auto 0.4 X10*3/uL (0.1-1.2); Monocytes Percent Auto 10.5 % (2-11); Neutrophils Absolute Auto 1.8 x10*3/uL (2.0-8.3); Platelet Count 152 X10*3/uL (160-400); Red Cell Distribution Width 13.3 % (11.0-16.0); White Blood Count 4.2 X10*3/uL (4.8-10.8)
[2024-02-09 07:06] LABS: Anion Gap 14 (12-20); Blood Urea Nitrogen 12 mg/dL (9-16); Calcium 9.5 mg/dL (8.4-10.2); Carbon Dioxide 24 mmol/L (22-29); Chloride 110 mmol/L (96-108); Creatinine Clr Calc Pharmacy 104.8; Estimated Glomerular Filt Rate > 60; Glucose Random 86 mg/dL (60-115); Potassium 4.1 mmol/L (3.3-5.1); Sodium 144 mmol/L (135-145)
[2024-02-09 08:17] LABS: Troponin-I High Sensitivity 91.1 ng/L (<3.5-35.0)
[2024-02-09] MEDS: 0.9 % Sodium Chloride Flush 3 ML SYRINGE IVFLUSH (08:33)
--- NOTE | 2024-02-09 09:26 | PHA.MEDREC ---
Addendum entered by Lexii Garza RPh 02/09/24 09:38: Reviewed by [facility]. Original Note: Pharmacy Consult ? Medication Reconciliation Pharmacy has completed the medication reconciliation. Spoke with patient to confirm medications. He is no longer taking abilify. When I asked about inhalers he said he does not need them. There is also no inhalers in claim history either. He reports a methadone dose of 190mg from [facility] [place] he last took yesterday morning.
--- NOTE | 2024-02-09 09:52 | HE.PHANOTE ---
Addendum entered by Lexii Garza [facility] 02/09/24 11:34: Pt last received 190 mg. Original Note: Methadone Recieves from [facility] ([phone]). Per Latrice at facility, pt was given 3 bottles for home and took 1 dose @ 02/07/24.
--- NOTE | 2024-02-09 10:14 | P.CONCA_ITS ---
History of Present Illness History of Present Illness Date of Service: 02/09/24 Chief complaint: hypotension, elevated trops Narrative: This is a cardiology consultation regarding elevated troponins. Patient has a history of substance abuse. He states he uses cocaine regularly. Last use within the last week. Current admissions because of syncopal episode. Apparently, he had a near syncopal episode. Around the time, he was feeling lightheaded and diaphoretic. Patient states that he was not on any medications for about 4-6 weeks' time and then just started the meds about 2 days ago and he thought that was the reason. Any case, he was seen in the ER and troponins were slightly elevated and hence was admitted. He does not really have any clear-cut anginal-type chest pains. Today, he states he feels completely normal and how he usually feels. No cardiac symptoms whatsoever. In terms of substance abuse, he states he uses cocaine regularly. Heroin about 2-3 years ago. Currently on methadone. Review of Systems 2 Review of Systems: Yes all other systems are reviewed and are negative Constitutional: Constitutional: Reports as per HPI and Reports no additional constitutional complaints Eyes: Eyes: Reports as per HPI and Denies no additional eye complaints ENT: Denies system reviewed and no additional complaints, except as documented and Reports as per HPI Cardiovascular: Cardiovascular: Reports as per HPI, Reports no additional cardiovascular complaints, Denies acrocyanosis, Denies cool extremities, Denies chest pain, Denies leg edema, Reports lightheadedness, Denies palpitations and Denies dyspnea Respiratory: Respiratory: Reports as per HPI, Denies no additional respiratory complaints and Denies dyspnea Gastrointestinal: Gastrointestinal: Reports as per HPI and Denies no additional gastrointestinal complaints Genitourinary: Genitourinary: Reports no additional male genitourinary complaints and Reports as per HPI Musculoskeletal: Musculoskeletal: Reports no additional musculoskeletal complaints and Reports as per HPI Integumentary/Breasts: Skin/Breast: Reports system reviewed and no additional complaints, except as docu Neurologic: Reports system reviewed and no additional complaints, except as documented and Reports as per HPI Psychiatric: Psychiatric: Reports no additional psychiatric complaints and Reports as per HPI Endocrine: Endocrine: Reports no additional endocrine complaints, Reports as per HPI and Denies palpitations Hematologic/Lymphatic: Hematologic/Lymphatic: Reports no additional hematologic/lymphatic complaints and Reports as per HPI Allergic/Immunologic: Allergic/Immunologic: Reports no additional allergic/immunologic complaints and Reports as per [facility] Past Medical History Medical History Mental health problem Respiratory failure Insomnia COPD (chronic obstructive pulmonary disease) Asthma Family History Pertinent family history: No pertinent family history Social History Social History Household Members: Other Housing: Apartment Do you presently have visiting nurse or other home services: No Alcohol intake: never Comment: mild decrease in wheezing Patient Tobacco Use Status: Current someday Tobacco user Tobacco use type: Cigarette Cigarette Packs Per Day: 1 Cigarettes Per Day: 20.0 Years Smoked: 38 e-Cigarette/Vaping Use: Never Used Second Hand Smoke Exposure: Yes Substance Use Type: Crack/Cocaine service: No Current occupational status: unemployed Sexual orientation: Did not discuss Meds Allergies Allergy/AdvReac Type Severity Reaction Status Date / Time No Known Allergies Allergy Verified 02/08/24 13:53 [No Known Allergies*] Active Medications: Current Medications Acetaminophen (Acetaminophen 325 Mg Tablet) 650 mg PO Q6H PRN PRN Reason: Pain, Mild (Pain Scale 1-3), fever or headache Calcium Carbonate (Calcium Carbonate 750 Mg Tab.Chew) 750 mg PO Q4H PRN PRN Reason: Heartburn Last Admin: 02/09/24 03:33 Dose: 750 mg Enoxaparin Sodium (Enoxaparin Sodium 40 Mg/0.4 Ml Syringe) 40 mg SUBCUT Q24H OBINNA Last Admin: 02/08/24 20:13 Dose: 40 mg Magnesium Hydroxide (Milk Of Magnesia 30 Ml Oral.Susp) 30 ml PO DAILY PRN PRN Reason: Constipation Melatonin (Melatonin 3 Mg Tablet) 6 mg PO BEDTIME PRN PRN Reason: Insomnia Last Admin: 02/09/24 03:33 Dose: 6 mg Sodium Chloride (0.9 % Sodium Chloride Flush 3 Ml Syringe) 3 ml IVFLUSH QSHIFT [facility] Last Admin: 02/09/24 08:33 Dose: 3 ml Home Medications ?Medication ?Instructions ?Recorded ?Confirmed ?Last Taken ?Type quetiapine 400 mg tablet 400 mg PO BEDTIME 02/08/24 02/08/24 02/08/24 History baclofen 10 mg tablet 10 mg PO DAILY PRN Muscle Spasm 02/09/24 02/09/24 02/08/24 History methadone 10 mg/mL oral 190 mg PO DAILY 02/09/24 02/09/24 02/07/24 History concentrate (Methadone Intensol) Physical Exam 2 Vital Signs: Vital Signs: Last Vital Signs Temp 97.6 F 02/09/24 07:15 Pulse 98 02/09/24 08:48 Resp 18 02/09/24 07:15 BP 104/74 02/09/24 08:48 Pulse Ox 96 02/09/24 07:15 O2 Del Method Room Air 02/09/24 07:15 BMI result Body Mass Index 23.6 Const: General: comfortable and no acute distress O rientation/consciousness: patient oriented x3 HEENT: Other: Unremarkable Head: Yes normal to inspection Neck: Neck: Yes normal visual inspection Chest: Chest palpation & inspection: normal inspection of the chest Resp: Auscultation: clear to auscultation bilaterally Cardio: Palpation: normal PMI Heart sounds: S1 normal heart sound present, S2 normal heart sound present, no gallops, no murmurs and no rubs GI: Palpation (GI): Soft to palpation Back/Spine/Pelvis: Other: unremarkable Skin: General skin exam: no rashes or lesions noted Neuro: General: patient oriented x3 Extrem: General: Yes normal to inspection Psych: Mental Status: mental status grossly normal Objective Labs and Meds 02/09/24 06:12 02/09/24 06:12 Lab results: Laboratory Results - last 24 hr 02/08/24 02/08/24 02/08/24 14:10 14:16 17:26 WBC 4.7 L RBC 4.24 L Hgb 13.1 L Hct 39.1 L MCV 92.2 MCH 30.9 MCHC 33.5 RDW 13.4 Plt Count 150 L D MPV 10.8 Immature Gran % (Auto) 0.4 Neut % (Auto) 46.4 Lymph % (Auto) 39.8 [place] % (Auto) 9.6 Eos % (Auto) 3.4 Baso % (Auto) 0.4 Lymph # (Auto) 1.9 [place] # (Auto) 0.5 Eos # (Auto) 0.2 Baso # (Auto) 0.0 Abs Immat Gran (auto) 0.02 Absolute Neuts (auto) 2.2 Absolute Nucleated RBC 0.000 Nucleated RBC % (auto) 0.0 PT 10.7 L INR 0.9 APTT 27.0 D-Dimer High Sensitivty 166 Sodium 143 Potassium 3.9 Chloride 109 H Carbon Dioxide 23 Anion Gap 15 BUN 14 Creatinine 0.98 Estim Creat Clear Calc 86.7 Estimated GFR > 60 POC Glucose 105 Random Glucose 73 Lactic Acid 1.8 Calcium 9.4 Magnesium 2.0 Total Bilirubin 0.2 Direct Bilirubin 0.1 AST 15 ALT 13 Alkaline Phosphatase 69 Total Creatine Kinase 122 Troponin I High Sens 11.8 264.0 H* D Total Protein 6.9 Albumin 4.0 Urine Color Urine Appearance Urine pH Ur Specific [place] Urine Protein Urine Glucose (UA) Urine Ketones Urine Blood Urine Nitrite Ur Leukocyte Esterase Urine Opiates Screen Ur Buprenorphine Scrn Ur Oxycodone Screen Urine Methadone Screen Urine Fentanyl Screen Ur Barbiturates Screen Ur Phencyclidine Scrn Ur Amphetamines Screen U Benzodiazepines Scrn Urine Cocaine Screen U Marijuana (THC) Screen Ethyl Alcohol < 10 Influenza Type A (PCR) NEGATIVE Influenza Type B (PCR) NEGATIVE RSV RNA Qual (PCR) NEGATIVE SARS-CoV-2 RNA (RT-PCR) NEGATIVE 02/08/24 02/09/24 02/09/24 19:33 03:30 06:12 WBC 4.2 L RBC 4.20 L Hgb 13.2 L Hct 38.1 L MCV 90.7 MCH 31.4 MCHC 34.6 RDW 13.3 Plt Count 152 L MPV 11.2 Immature Gran % (Auto) 0.2 Neut % (Auto) 42.0 L Lymph % (Auto) 42.8 H [place] % (Auto) 10.5 Eos % (Auto) 4.0 Baso % (Auto) 0.5 Lymph # (Auto) 1.8 [place] # (Auto) 0.4 Eos # (Auto) 0.2 Baso # (Auto) 0.0 Abs Immat Gran (auto) 0.01 Absolute Neuts (auto) 1.8 L Absolute Nucleated RBC 0.000 Nucleated RBC % (auto) 0.0 PT INR APTT D-Dimer High Sensitivty Sodium 144 Potassium 4.1 Chloride 110 H Carbon Dioxide 24 Anion Gap 14 BUN 12 Creatinine 0.87 Estim Creat Clear Calc 104.8 Estimated GFR > 60 POC Glucose Random Glucose 86 Lactic Acid Calcium 9.5 Magnesium Total Bilirubin Direct Bilirubin AST ALT Alkaline Phosphatase Total Creatine Kinase Troponin I High Sens 264.6 H* 91.1 H D Total Protein Albumin Urine Color Yellow Urine Appearance Clear Urine pH 7.0 Ur Specific [place] <= 1.005 Urine Protein Negative Urine Glucose (UA) Negative Urine Ketones Negative Urine Blood Negative Urine Nitrite Negative Ur Leukocyte Esterase Negative Urine Opiates Screen Not Detected Ur Buprenorphine Scrn Not Detected Ur Oxycodone Screen Not Detected Urine Methadone Screen Positive H Urine Fentanyl Screen Not Detected Ur Barbiturates Screen Not Detected Ur Phencyclidine Scrn Not Detected Ur Amphetamines Screen Not Detected U Benzodiazepines Scrn Not Detected Urine Cocaine Screen POSITIVE H U Marijuana (THC) Screen Not Detected Ethyl Alcohol Influenza Type A (PCR) Influenza Type B (PCR) RSV RNA Qual (PCR) SARS-CoV-2 RNA (RT-PCR) ECG Interpretation: EKG with sinus bradycardia at 57/Min; no significant ST-T changes and otherwise unremarkable. Repeat EKGs also unremarkable and does not show any ischemic changes. Imaging Radiologist's impression: Impressions Chest X-Ray 02/08/24 14:56 IMPRESSION: 1. Very mild interstitial perihilar opacification and peribronchial cuffing might be small airway disease. 2. No dense lobar consolidation pneumonia or pleural effusion. Assessment and Plan (1) Cocaine use disorder, moderate, dependence: Status: Acute (2) Hypotension: Status: Acute (3) Elevated troponin: Status: Acute Plan Labs reviewed. Troponin levels are 11 followed by 264 followed by 91. Drugs positive for cocaine, methadone. EKG, as above does not show any ischemic changes. Overall, mild hypotension associated with syncope in setting of recent cocaine use and also resuming usual home medications after long gap. Clinically, he has got absolutely no angina or other cardiac symptoms. Troponin elevation could be related to hypoperfusion as well as cocaine. Mainly, counseled against drugs. Discharge planning. Rehabilitation. Procedures Date of Service Date of Service: 02/09/24
--- NOTE | 2024-02-09 11:24 | P.DS_ITS ---
DS: Providers Provider Date of Service: 02/09/24 Date of admission: 02/08/24 19:21 Primary care physician: None Physician Consults: 02/08/24 19:41 Addiction Medicine Routine Consulting Provider: Addiction Covering Reason for consultation: cocaine abuse Consult to Cardiology Routine Consulting Provider: [facility] [place] [facility] Reason for consultation: elevated troponins DS: Diagnosis Discharge Diagnosis (1) Cocaine use disorder, moderate, dependence: Status: Acute (2) Hypotension: Status: Acute (3) Elevated troponin: Status: Acute DS: Summary Hospital Course Hospital Course: History and physical as per admitting provider. 48-year-old male with history of unspecified asthma, opiate use disorder on methadone, cocaine abuse and mood disorder presented to the ED earlier today after having a near syncopal episode around 230 this afternoon. He states he was eating and began feeling lightheaded and diaphoretic and blacked out. He does not believe he fully passed out and did not hit his head. He is not on any blood thinners. He states his last drug use was inhaled cocaine about 2-3 days ago and denies any recent use of illicit substances besides this. He does smoke 2 cigarettes a day but denies any alcohol use. He has never had prior episode. Denies any fevers, chills, abdominal pain, nausea, vomiting, diarrhea, shortness of breath, palpitations, chest pain. He is currently asymptomatic. On arrival, he was hypotensive to 85/54 132/88 on admission with IV fluid resuscitation. Vitals have otherwise been stable. Renal function and electrolyte levels are normal. D-dimer 166. Initial troponin 11, repeat 264. Ethyl alcohol level undetectable. Urine drug screen pending. egative for COVID, flu, RSV. Chest x- ray shows mild interstitial perihilar opacification and peribronchial cuffing possibly small airways disease but no dense consolidation or effusions. In the ED, has received 2 L IVF and 324 mg aspirin. 48-year-old man treated for dizziness and hypotension. Likely related to hypoperfusion from cocaine use and clonidine. Patient is also on methadone as well. He received some IV fluids while in the ER, orthostatic blood pressures have remained negative. Patient has not had no more episodes of dizziness even with ambulation. He did have an elevated troponin which may have been related to cocaine use, trended down, no ischemic changes noted on EKG, no arrhythmia or bradycardia noted on telemetry. At this time patient is stable for discharge and he is okay to be discharged home. He can follow up with his primary care provider outpatient. Substance abuse history. Continue methadone, last methadone dose 02/09/2024 Cigarette smoker. Encouraged to stop smoking, can use [id number] nicotine replacement therapy if needed Asthma/COPD. No exacerbation during hospitalization. Time Attestation Discharge Coordination Time (in mins): 30 Quality: Safe Use of Opioids Does Pt have an Active Cancer Diagnosis on the Problem List?: No Quality: Stroke Does the patient have a stroke diagnosis?: No Physical Exam Vital Signs: Vital Signs: Last Vital Signs Temp 96.9 F 02/09/24 11:18 Pulse 62 02/09/24 11:18 Resp 18 02/09/24 11:18 BP 137/62 02/09/24 11:18 Pulse Ox 96 02/09/24 11:18 O2 Del Method Room Air 02/09/24 11:18 BMI result Body Mass Index 23.6 Appearing in no acute distress head is normocephalic atraumatic eyes pupils are PERRLA sclera is anicteric mouth throat mucous membranes are intact and moist neck is supple no lymphadenopathy, no JVD noted lung sounds are clear to auscultation heart regular rate rhythm, clear S1, S2 positive bowel sounds, abdomen is soft, nontender neuro patient is alert x3, no focal deficits DS: Data Data Completed and Pending Completed studies during hospitalization [Text1]: Procedures Insertion of Endotracheal Airway into Trachea, Via Natural or Artificial Opening Endoscopic (06/16/20) Respiratory Ventilation, Less than 24 Consecutive Hours (06/16/20) Labs on day of discharge: Laboratory Results - last 24 hr 02/08/24 02/08/24 02/08/24 14:10 14:16 17:26 WBC 4.7 L RBC 4.24 L Hgb 13.1 L Hct 39.1 L MCV 92.2 MCH 30.9 MCHC 33.5 RDW 13.4 Plt Count 150 L D MPV 10.8 Immature Gran % (Auto) 0.4 Neut % (Auto) 46.4 Lymph % (Auto) 39.8 [place] % (Auto) 9.6 Eos % (Auto) 3.4 Baso % (Auto) 0.4 Lymph # (Auto) 1.9 [place] # (Auto) 0.5 Eos # (Auto) 0.2 Baso # (Auto) 0.0 Abs Immat Gran (auto) 0.02 Absolute Neuts (auto) 2.2 Absolute Nucleated RBC 0.000 Nucleated RBC % (auto) 0.0 PT 10.7 L INR 0.9 APTT 27.0 D-Dimer High Sensitivty 166 Sodium 143 Potassium 3.9 Chloride 109 H Carbon Dioxide 23 Anion Gap 15 BUN 14 Creatinine 0.98 Estim Creat Clear Calc 86.7 Estimated GFR > 60 POC Glucose 105 Random Glucose 73 Lactic Acid 1.8 Calcium 9.4 Magnesium 2.0 Total Bilirubin 0.2 Direct Bilirubin 0.1 AST 15 ALT 13 Alkaline Phosphatase 69 Total Creatine Kinase 122 Troponin I High Sens 11.8 264.0 H* D Total Protein 6.9 Albumin 4.0 Urine Color Urine Appearance Urine pH Ur Specific [place] Urine Protein Urine Glucose (UA) Urine Ketones Urine Blood Urine Nitrite Ur Leukocyte Esterase Urine Opiates Screen Ur Buprenorphine Scrn Ur Oxycodone Screen Urine Methadone Screen Urine Fentanyl Screen Ur Barbiturates Screen Ur Phencyclidine Scrn Ur Amphetamines Screen U Benzodiazepines Scrn Urine Cocaine Screen U Marijuana (THC) Screen Ethyl Alcohol < 10 Influenza Type A (PCR) NEGATIVE Influenza Type B (PCR) NEGATIVE RSV RNA Qual (PCR) NEGATIVE SARS-CoV-2 RNA (RT-PCR) NEGATIVE 02/08/24 02/09/24 02/09/24 19:33 03:30 06:12 WBC 4.2 L RBC 4.20 L Hgb 13.2 L Hct 38.1 L MCV 90.7 MCH 31.4 MCHC 34.6 RDW 13.3 Plt Count 152 L MPV 11.2 Immature Gran % (Auto) 0.2 Neut % (Auto) 42.0 L Lymph % (Auto) 42.8 H [place] % (Auto) 10.5 Eos % (Auto) 4.0 Baso % (Auto) 0.5 Lymph # (Auto) 1.8 [place] # (Auto) 0.4 Eos # (Auto) 0.2 Baso # (Auto) 0.0 Abs Immat Gran (auto) 0.01 Absolute Neuts (auto) 1.8 L Absolute Nucleated RBC 0.000 Nucleated RBC % (auto) 0.0 PT INR APTT D-Dimer High Sensitivty Sodium 144 Potassium 4.1 Chloride 110 H Carbon Dioxide 24 Anion Gap 14 BUN 12 Creatinine 0.87 Estim Creat Clear Calc 104.8 Estimated GFR > 60 POC Glucose Random Glucose 86 Lactic Acid Calcium 9.5 Magnesium Total Bilirubin Direct Bilirubin AST ALT Alkaline Phosphatase Total Creatine Kinase Troponin I High Sens 264.6 H* 91.1 H D Total Protein Albumin Urine Color Yellow Urine Appearance Clear Urine pH 7.0 Ur Specific [place] <= 1.005 Urine Protein Negative Urine Glucose (UA) Negative Urine Ketones Negative Urine Blood Negative Urine Nitrite Negative Ur Leukocyte Esterase Negative Urine Opiates Screen Not Detected Ur Buprenorphine Scrn Not Detected Ur Oxycodone Screen Not Detected Urine Methadone Screen Positive H Urine Fentanyl Screen Not Detected Ur Barbiturates Screen Not Detected Ur Phencyclidine Scrn Not Detected Ur Amphetamines Screen Not Detected U Benzodiazepines Scrn Not Detected Urine Cocaine Screen POSITIVE H U Marijuana (THC) Screen Not Detected Ethyl Alcohol Influenza Type A (PCR) Influenza Type B (PCR) RSV RNA Qual (PCR) SARS-CoV-2 RNA (RT-PCR) Discharge Plan Discharge Anticipated Discharge Date/Time: 02/09/24 11:22 Patient Disposition: Home, Self-Care Discharge Diagnosis: Dizziness hypotension Referrals: Avis Cormier CERTIFIED CODING SPECIALIST [Nurse Practitioner] - 1 Week Discharge Medications: Continued clonidine HCl 0.1 mg Tablet 0.1 mg PO TID PRN (Reason: Anxiety) Qty: 90 0RF Protocol: Hold for SBP< HOLD for SBP < : 90 quetiapine 400 mg tablet 400 mg PO BEDTIME baclofen 10 mg tablet 10 mg PO DAILY PRN (Reason: Muscle Spasm) methadone [Methadone Intensol] 10 mg/mL Concentrate 190 mg PO DAILY Discharge Orders: Discharge Order (Routine); Ordered 02/09/24 Ordered By: Sussy Alfonso Diet: Advance to usual diet Activity on Discharge: As tolerated Stand Alone Forms: Patient Portal Discharge page Print Language: Belarusian Activity Restrictions/Additional Instructions: Make sure that you are drinking plenty of fluids. Return for any worsening symptoms Care Plan Goals: Avoid using street drugs that may potentially cause the symptoms, clonidine may also cause some decrease in your blood pressure. Last methadone dose 02/09/24 Health Concerns: Dizziness Hypotension Plan of Treatment: Follow-up with primary care provider as needed Take all medications as prescribed Assessment: See discharge summary
--- NOTE | 2024-02-09 11:45 | MHC.CM.PN ---
NINI 02/09/24 Patient lives with family. He states that he has a HCP. A copy was requested. He is independent with all functional mobility. DP home self care. He will arrange for a ride home. PCP name unknown [facility] [place] Task sent. Ptient is discharged today
[2024-02-09] MEDS: methADONE HCl 20 MG/2 ML ORAL.CONC 190 MG PO (12:05)
== END 2024-02-09 13:45 | disposition home or self-care (01) ==
LOC: HO.ED 18:41 → HO.EDOVER 19:29 → HO.IMC 19:41
PROVIDERS: Nurse Practitioner Family; Admitting Provider Physician Assistant; Emergency Provider Emergency Medicine; PCP Internal Medicine; Visit Provider Nurse Practitioner Acute Care
DX: R42 Dizziness and giddiness (principal); I95.9 Hypotension, unspecified; R79.89 Other specified abnormal findings of blood chemistry; R00.1 Bradycardia, unspecified; R07.9 Chest pain, unspecified; J45.909 Unspecified asthma, uncomplicated; F11.90 Opioid use, unspecified, uncomplicated; F14.20 Cocaine dependence, uncomplicated; F17.200 Nicotine dependence, unspecified, uncomplicated; Z79.899 Other long term (current) drug therapy; Z71.6 Tobacco abuse counseling
CPT/HCPCS: 0241U; 36415; 71046; 80048; 80076; 80307; 81003; 82550; 82947; 83605; 83735; 84484; 85025; 85379; 85610; 85730; 87040; 93005; 96360; 96361; 96372; 99222; 99285; J1650

== ENCOUNTER → 2024-02-08 19:21 | Outpatient (BNV) | payer OTHER, SELFPAY | PROVIDERS: Admitting Provider Physician Assistant; Emergency Provider Emergency Medicine; Visit Provider Physician Assistant | DX: F14.20 Cocaine dependence, uncomplicated (principal); I95.9 Hypotension, unspecified; R79.89 Other specified abnormal findings of blood chemistry | CPT/HCPCS: 99223; 99239 ==

== ENCOUNTER → 2024-02-08 19:21 | Outpatient (BNV) | payer OTHER, SELFPAY | PROVIDERS: Admitting Provider Physician Assistant; Emergency Provider Emergency Medicine; Visit Provider Internal Medicine | DX: F14.20 Cocaine dependence, uncomplicated (principal); I95.9 Hypotension, unspecified; R79.89 Other specified abnormal findings of blood chemistry | CPT/HCPCS: 99223 ==